=== PATIENT | female | born 1940 | race Caucasian/White ===

== ENCOUNTER 2022-07-05 09:58 | Outpatient (CLI) | payer MEDICARE, OTHER, SELFPAY ==
--- NOTE | 2022-07-05 10:56 | XRR_ITS ---
PROCEDURE INFORMATION: Exam: XR Chest Exam date and time: 07/05/2022 11:05 AM Age: 81 years old Clinical indication: Condition or disease; Lung condition and disease; Copd; Prior surgery; Surgery type: Gastric bypass; Additional info: J44.9 - chronic obstructive pulmonary disease, unspecified TECHNIQUE: Imaging protocol: Radiologic exam of the chest. Views: 2 views. COMPARISON: No relevant prior studies available. FINDINGS: Tubes, catheters and devices: Numerous surgical clips in the upper abdomen. Lungs: Right perihilar and infrahilar consolidation. Enlarged right hilum. Calcified right hilar lymph nodes. Scattered calcifications in the right lower lung. Pleural spaces: There is no pleural effusion or pneumothorax. Heart/Mediastinum: There is mild enlargement of the cardiac silhouette. Bones/joints: Bilateral shoulder arthroplasty. XR/XR chest 2V* [id number] IMPRESSION: Right lower lung opacities associated with pulmonary parenchymal calcifications and right hilar enlargement with lymph node calcifications. This may be an acute or chronic process. Consider infection, neoplasm, and sequelae of granulomatous disease. Recommend follow-up chest CT.
--- NOTE | 2022-07-05 10:56 | XRR_ITS ---
PROCEDURE INFORMATION: Exam: XR Left Elbow Exam date and time: 07/05/2022 11:05 AM Age: 81 years old Clinical indication: Injury or trauma; Fall; Blunt trauma (contusions or hematomas); Elbow; Left; Injury date: 1 week ago; Additional info: M25.522 - pain in left elbow TECHNIQUE: Imaging protocol: Radiologic exam of the left elbow. Views: 3 or more views. COMPARISON: No relevant prior studies available. FINDINGS: Bones/joints: Alignment is normal. No acute fracture. No joint effusion. Soft tissues: Normal. XR/XR elbow LT min 3V* [id number] IMPRESSION: No acute findings.
--- NOTE | 2022-07-05 10:56 | XRR_ITS ---
PROCEDURE INFORMATION: Exam: XR Left Ribs Exam date and time: 07/05/2022 11:05 AM Age: 81 years old Clinical indication: Pain and injury or trauma; Fall; Rib area, left side; Blunt trauma; Pleurodynia; Injury date: 1 week ago; Prior surgery; Surgery type: Gastric bypass; Additional info: R07.81 - pleurodynia TECHNIQUE: Imaging protocol: Radiologic exam of the left ribs. Views: 2 views. COMPARISON: No relevant prior studies available. FINDINGS: Bones/joints: Left shoulder arthroplasty with humeral head prosthesis. There is linear lucency adjacent to the prosthesis which may represent overlying soft tissues. Acute fracture is not unequivocally excluded. Soft tissues: Unremarkable XR/XR ribs LT 2V* [id number] IMPRESSION: Subtle lucency in the proximal humerus. Soft tissue fold versus nondisplaced fracture.
[2022-07-05 11:19] LABS: Basophils # 0.1 10^3/uL (0.0-0.1); Basophils % 0.8 %; Eosinophils # 0.8 10^3/uL (0.0-0.8); Eosinophils % 11.1 %; Hematocrit 31.1 % (37.0-47.0); Hemoglobin 9.4 g/dL (11.5-15.3); Lymphocytes # 0.7 10^3/uL (0.8-4.8); Lymphocytes % 8.7 %; Mean Corpuscular HGB Conc 30.2 g/dL (30.0-36.0); Mean Corpuscular Hemoglobin 34.9 pg (28.0-34.0); Mean Corpuscular Volume 115.6 fl (81-99); Mean Platelet Volume 10.7 fL (7.4-10.4); Monocytes # 0.7 10^3/uL (0.2-0.9); Monocytes % 9.4 %; Neutrophils # 5.29 10^3/uL (1.8-7.7); Neutrophils % 69.6 %; Nucleated Red Blood Cells % 0 %; Platelet Count 211 10^3/cmm (130-400); Red Blood Count 2.69 10^6/uL (4.1-5.3); Red Cell Distribution Width 14.9 % (12.1-15.1); White Blood Count 7.6 10^3/uL (4.0-10.0)
[2022-07-05 12:00] LABS: 25 Hydroxy Vitamin D 19 ng/mL (30-100); Alanine Aminotransferase < 5 U/L (0-33); Alkaline Phosphatase 53 U/L (35-105); Anion Gap 15.6 (5-19); Aspartate Amino Transferase 26 U/L (0-32); Blood Urea Nitrogen 44 mg/dL (8-23); Calcium 7.7 mg/dL (8.5-10.5); Carbon Dioxide 25 mmol/L (22-29); Chloride 105 mmol/L (98-107); Chol HDL Ratio 2.08 mg/dL (0.0-4.40); Cholesterol 83 mg/dL (0-200); Globulin 2.6 g/dL (1.3-4.6); Glucose 87 mg/dL (65-115); HDL Cholesterol 40 mg/dL (60-100); Iron 77 ug/dL (37-145); LDL Cholesterol Calculated 17 mg/dL (50-129); Osmolality Calculated 303 mOsm/kg (285-295); Potassium 4.6 mmol/L (3.5-5.1); Sodium 141 mmol/L (136-145); Thyroid Stimulating Hormone 1.54 uIU/mL (0.27-4.20); Total Bilirubin 0.6 mg/dL (0.15-1.2); Total Iron Binding Capacity 265 mcg/dl; Total Protein 5.6 g/dL (6.6-8.7); Triglycerides 130 mg/dL (0-150); Unsaturated Iron Binding 188 ug/dL (112-347); VLDL Cholestrol Calculation 26 mg/dL (0-30); Vitamin B12 278 pg/mL (232-1245)
== END 2022-07-05 09:59 | disposition home or self-care (01) ==
PROVIDERS: PCP Nurse Practitioner; Visit Provider Nurse Practitioner
DX: J44.9 Chronic obstructive pulmonary disease, unspecified (principal); M25.522 Pain in left elbow; R07.81 Pleurodynia; E55.9 Vitamin D deficiency, unspecified; I10 Essential (primary) hypertension; E78.2 Mixed hyperlipidemia; R00.0 Tachycardia, unspecified; E61.1 Iron deficiency
CPT/HCPCS: 36415; 71046; 71100; 73080; 80053; 80061; 82306; 82607; 83540; 83550; 84443; 85025

== ENCOUNTER 2022-07-20 15:10 | Outpatient (CLI) | payer MEDICARE, SELFPAY ==
--- NOTE | 2022-07-20 15:00 | CTR_ITS ---
PROCEDURE INFORMATION: Exam: CT Chest Without Contrast; Diagnostic Exam date and time: 07/20/2022 3:42 PM Age: 81 years old Clinical indication: Condition or disease; Lung condition and disease; Copd; Complications not specified; Additional info: J44.9 - chronic obstructive pulmonary disease, unspecified, please call [facility] for transportation [phone] TECHNIQUE: Imaging protocol: Diagnostic computed tomography of the chest without contrast. Radiation optimization: All CT scans at this facility use at least one of these dose optimization techniques: automated exposure control; mA and/or kV adjustment per patient size (includes targeted exams where dose is matched to clinical indication); or iterative reconstruction. REPORTING DATA: Count of CT and Cardiac NM exams in prior 12 months: This patient has received 0 known CTs and 0 known cardiac nuclear medicine studies in the 12 months prior to the current study. COMPARISON: CR XR chest 2V* [id number] 07/05/2022 11:05 AM RADIATION DOSE METRICS: Total DLP (mGy-cm): 402.1 FINDINGS: Thyroid: Generalized thyroid enlargement with multiple thyroid nodules measuring up to 2.5 cm. There is a partially calcified nodule measuring 2.5 cm interposed between the posterior margin left lobe of the thyroid gland and esophagus likely representing nodular goiter. Lungs: Scattered granulomatous calcifications within the mediastinum and hilum. Mild upper lobe emphysematous changes and minor atelectatic changes right lung base, otherwise lung freeman are aerated and clear. Pleural spaces: Unremarkable. No pneumothorax. No pleural effusion. Heart: Heart is at least mildly enlarged. Moderate calcification of coronary arteries. No significant pericardial effusion. Lymph nodes: No significant mediastinal lymphadenopathy. Vasculature: Diffuse atherosclerotic changes with calcification of the thoracic aorta. There is an mid abdominal aortic aneurysm with an endovascular stent partially visualized. Gallbladder and bile ducts: Gallbladder has been removed. Kidneys and ureters: Right kidney is atrophic. Intraperitoneal space: Numerous surgical clips within the upper abdomen the. Bones/joints: Multilevel degenerative endplate osteophytes throughout the thoracic spine. No acute bony abnormalities. Soft tissues: Unremarkable. CT/CT chest wo con [id number] IMPRESSION: 1. COPD with mild upper lobe emphysematous changes. 2. Cardiomegaly with moderate calcification of coronary arteries. 3. Multinodular goiter with nodules measuring up to 2.5 cm. COMMENTS: Consistent with the [employer]'s Incidental Findings Committee white paper (J Am Melina Radiol 2015): In patients aged 35 years and older with an incidental thyroid nodule equal to or greater than 1.[address], MRI or extrathyroidal US, further evaluation with dedicated thyroid US is recommended for patients with normal life expectancy and without comorbidities. For smaller nodules without suspicious features, no further evaluation or follow up is recommended.
== END 2022-07-20 15:11 | disposition home or self-care (01) ==
PROVIDERS: PCP Nurse Practitioner; Visit Provider Nurse Practitioner
DX: J44.9 Chronic obstructive pulmonary disease, unspecified (principal); N18.30 Chronic kidney disease, stage 3 unspecified; R93.89 Abnormal findings on diagnostic imaging of other specified body structures; I51.7 Cardiomegaly; E04.1 Nontoxic single thyroid nodule
CPT/HCPCS: 71250

== ENCOUNTER 2022-07-21 06:05 | Inpatient (IN) | payer MEDICARE, OTHER, SELFPAY ==
[2022-07-21] VITALS (47 sets, daily range): BP systolic 102–146; BP diastolic 27–88; PULSE 36–74; RESP 12–23; TEMP 36.4–37.1; O2SAT 80–100; BMI 31.3
--- NOTE | 2022-07-21 06:25 | XRR_ITS ---
PROCEDURE INFORMATION: Exam: XR Chest Exam date and time: 07/21/2022 6:30 AM Age: 81 years old Clinical indication: Dyspnea; Prior surgery; Surgery type: Gastric bypass; Additional info: Dyspnea/cough TECHNIQUE: Imaging protocol: Radiologic exam of the chest. Views: 1 view. COMPARISON: CT chest con [id number] 07/20/2022 3:42 PM FINDINGS: Lungs: There are multiple benign calcified right pulmonary hilar and mediastinal lymph nodes. Pleural spaces: Unremarkable. No pleural effusion. No pneumothorax. Heart/Mediastinum: Cardiac silhouette is enlarged but unchanged. Bones/joints: Unremarkable. Intraperitoneal space: Surgical clips are present in the abdomen. XR/XR chest 1V portable [id number] IMPRESSION: No acute abnormality.
--- NOTE | 2022-07-21 06:26 | ECG_ITS ---
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 Measurements Intervals [place] Rate: 40 P: 0 DE: 0 QRS: -41 QRSD: 169 T: 39 QT: 543 QTc: 446 Interpretive Statements ATRIAL FIBRILLATION WITH SLOW VENTRICULAR RESPONSE LEFT AXIS DEVIATION [QRS AXIS < -30] LEFT BUNDLE BRANCH BLOCK [120+ ms QRS DURATION, 80+ ms Q/S IN V1/V2, 85+ ms R IN I/aVL/V5/V6] CRITICAL TEST RESULT No previous ECG available for comparison Electronically Signed On 07-21-2022 9:55:56 CDT by Gerry Jones M.D. [email or web address]
--- NOTE | 2022-07-21 06:27 | ED_ITS ---
HPI - Weakness General: Chief complaint: Weakness Stated complaint: WEAKNESS Time Seen by Provider: 07/21/22 06:11 Source: patient Mode of arrival: ambulatory History of Present Illness: 81-year-old female who presents to the emergency room with generalized weakness. She lives in [place] [facility] [place] she usually uses a walker to walk but over the last month has been progressively weaker today she could not stand. She denies chest or abdominal pain. She has chronic diarrhea that is unchanged she denies any hematochezia or melena. She denies any shortness of breath. She has a known history of atrial fibrillation she also has a history of Parkinson's disease that she is not on any long-term anticoagulation but does take baby aspirin daily she is also on metoprolol on arrival here she is profoundly bradycardic but awake and alert and able to answer questions. Onset (ago): hour(s) Duration: constant Location: generalized Migration: none Severity: mild Relieving factors: none Exacerbating factors: none Associated symptoms: Denies chest pain, chills, confusion, melena, decreased appetite, diaphoresis, dysuria, easy bruising, fever(s), headache(s), myalgias, nausea, rash, short of breath, syncope or vomiting Review of Systems Const: Denies: fever(s), chills, fatigue, malaise or diaphoresis Card: Reports: palpitations, irregular heart rhythm, edema and swelling of feet/ankles; Denies: chest pain or syncope Resp: Denies: dyspnea, productive cough or non-productive cough GI: Reports: diarrhea (Chronic); Denies: abdominal pain, nausea, vomiting, hematochezia or melena : Denies: dysuria, urinary frequency or urinary urgency Skin/Breast: Denies: rash or pruritus Neuro: Denies: headache(s) or confusion Toñito/Lymph: Denies: easy bruising PFS ED PFSH: Medical History (Updated 07/21/22 @ 07:54 by Yo Farris DO) AAA (abdominal aortic aneurysm) Acid reflux Anxiety with depression CKD (chronic kidney disease) stage 3, GFR 30-59 ml/min COPD (chronic obstructive pulmonary disease) Environmental and seasonal allergies Essential hypertension Hx of coronary angiogram Hyperlipidemia, mixed Irritable bowel syndrome with diarrhea JESSICA on CPAP Parkinson disease PVD (peripheral vascular disease) Tachycardia Surgical History (Updated 07/21/22 @ 07:54 by Yo Farris DO) History of abdominal aortic aneurysm (AAA) repair Two different repairs in [place] History of arthroscopy of both shoulders History of bariatric surgery 3 different surgeries 2007 History of cholecystectomy History of colonoscopy with polypectomy Benign History of hysterectomy with bilateral oophorectomy History of renal stent History of tonsillectomy and adenoidectomy History of vein stripping Bilateral legs Personal history of benign breast biopsy Family History Father Cancer Social History Smoking and tobacco status: current every day smoker Lives independently: No Housing: Assisted Living Facility Marital status: Marital status details: Sanjuana Coelho Number of children: 3 Current occupational status: retired Current gender identity: Female Physical Exam Const: GENERAL APPEARANCE: cooperative and comfortable ORIENTATION/CONSCIOUSNESS: Yes awake, Yes oriented to person, Yes oriented to place and Yes oriented to time HENMT: COMMON NORMALS: normocephalic, atraumatic and hearing grossly normal bilaterally HEAD & SCALP: normocephalic and atraumatic Resp: COMMON NORMALS: normal respiratory effort, No retractions, No use of accessory muscles and clear to auscultation bilaterally AUSCULTATION: clear to auscultation bilaterally Cardio: COMMON NORMALS: No murmurs present (Cardio) RATE: bradycardic RHYTHM: abnormal rhythm irregularly irregular GI: COMMON NORMALS: Soft to palpation and No hepatosplenomegaly present AUSCULTATION: Yes normoactive bowel sounds PALPATION: Yes Soft to palpation, No Tenderness to palpation present (GI), No Guarding due to palpation present (GI) and Yes No hepatosplenomegaly present : COMMON NORMALS: Yes no CVA tenderness BLADDER/KIDNEY EXAM: Yes no CVA tenderness Back/Pelvis: COMMON NORMALS: no CVA tenderness Extremity: COMMON NORMALS: normal to inspection, capillary refill normal, no clubbing, cyanosis or edema, no calf tenderness and no pedal edema Neuro: SENSORIUM/ORIENTATION: Yes oriented to person, Yes oriented to place and Yes oriented to time Skin: COMMON NORMALS: no rashes or lesions noted GENERAL SKIN EXAM: no rashes or lesions noted Course Vital Signs: Vital signs: Vital Signs Temperature 97.6 F 07/21/22 06:27 Pulse Rate 41 L 07/21/22 06:27 Respiratory Rate 20 H 07/21/22 06:27 Blood Pressure 109/57 07/21/22 06:27 Oxygen Delivery Me thod Nasal Cannula 07/21/22 06:27 Oxygen Flow Rate 2 07/21/22 06:27 MDM - Weakness Medical Decision Making Acute on chronic kidney injury. Elevated troponin and significant bradycardia. Patient has a left bundle branch block and is in atrial fibrillation bradycardia may be due to high-dose of beta-chandu. Additionally patient is on significant diuretics with metaxalone and Lasix. Patient given 500 normal saline and started on normal saline at 50 mils per hour. Rate is continued in the upper 30s low 40s however blood pressure is stable. Patient is not showing any signs of compromise or hypoperfusion at this point she continues to have no chest pain. We do not have troponins to compare previously nor do we have an old EKG to compare. Discussed with hospitalist they asked that we consult cardiology. Dr. Jones was called for on-call cardiology. Will admit to the ICU hold diuretics and beta-blockers. She has been started on heparin for now based on the elevated troponin. The only previous creatinine was 3.4 today's is 4.7 with a BUN of 114, her previous BUN from July 05 was 44. Medical Records I reviewed the patient's medical records. Lab Data I reviewed the patient's lab results. 07/21/22 06:30 07/21/22 06:30 Radiology Impressions Chest X-Ray 07/21/22 06:25 IMPRESSION: No acute abnormality. Laboratory Results WBC 7.7 10^3/uL (4.0-10.0) 07/21/22 06:30 RBC 3.06 10^6/uL (4.1-5.3) L 07/21/22 06:30 Hgb 10.2 g/dL (11.5-15.3) L 07/21/22 06:30 Hct 31.8 % (37.0-47.0) L 07/21/22 06:30 MCV 103.9 fl (81-99) H 07/21/22 06:30 MCH 33.3 pg (28.0-34.0) 07/21/22 06:30 MCHC 32.1 g/dL (30.0-36.0) 07/21/22 06:30 RDW 14.1 % (12.1-15.1) 07/21/22 06:30 Plt Count 102 10^3/cmm (130-400) L 07/21/22 06:30 MPV 13.7 fL (7.4-10.4) H 07/21/22 06:30 Neut % (Auto) 73.8 % 07/21/22 06:30 Lymph % (Auto) 12.0 % 07/21/22 06:30 [place] % (Auto) 11.2 % 07/21/22 06:30 Eos % (Auto) 2.2 % 07/21/22 06:30 Baso % (Auto) 0.7 % 07/21/22 06:30 Neut # (Auto) 5.67 10^3/uL (1.8-7.7) 07/21/22 06:30 Lymph # (Auto) 0.9 10^3/uL (0.8-4.8) 07/21/22 06:30 [place] # (Auto) 0.9 10^3/uL (0.2-0.9) 07/21/22 06:30 Eos # (Auto) 0.2 10^3/uL (0.0-0.8) 07/21/22 06:30 Baso # (Auto) 0.1 10^3/uL (0.0-0.1) 07/21/22 06:30 Nucleated RBC % (auto) 0 % 07/21/22 06:30 Nucleated RBCs # 0.0 /100WBC 07/21/22 06:30 Sodium 137 mmol/L (136-145) 07/21/22 06:30 Potassium 4.7 mmol/L (3.5-5.1) 07/21/22 06:30 Chloride 97 mmol/L (98-107) L 07/21/22 06:30 Carbon Dioxide 25 mmol/L (22-29) 07/21/22 06:30 Anion Gap 19.7 (5-19) H 07/21/22 06:30 BUN 114 mg/dL (8-23) H* D 07/21/22 06:30 Creatinine 4.7 mg/dL (0.5-0.9) H 07/21/22 06:30 GFR Calculation Not Reportable 07/21/22 06:30 Glucose 61 mg/dL (65-115) L 07/21/22 06:30 Calculated Osmolality 318 mOsm/kg (285-295) H 07/21/22 06:30 Calcium 7.7 mg/dL (8.5-10.5) L 07/21/22 06:30 Magnesium 1.7 mg/dL (1.7-2.3) 07/21/22 06:30 Total Bilirubin 1.8 mg/dL (0.15-1.2) H 07/21/22 06:30 AST 193 U/L (0-32) H 07/21/22 06:30 ALT 8 U/L (0-33) 07/21/22 06:30 Alkaline Phosphatase 85 U/L (35-105) 07/21/22 06:30 Troponin T Baseline 178 ng/L (0-10) H* 07/21/22 06:30 NT-Pro-B Natriuret Pep 4793 pg/mL (0-450) H 07/21/22 06:30 Total Protein 5.2 g/dL (6.6-8.7) L 07/21/22 06:30 Albumin 3.0 g/dL (3.5-5.2) L 07/21/22 06:30 Globulin 2.2 g/dL (1.3-4.6) 07/21/22 06:30 TSH 1.85 uIU/mL (0.27-4.20) 07/21/22 06:30 Discharge Plan Discharge Patient Disposition: Admitted As Inpatient Admit Provider: Melva Gracia Clinical Impression: Bradycardia, COPD (chronic obstructive pulmonary disease), History of renal stent, Essential hypertension, Parkinson disease, Atrial fibrillation, Acute on chronic kidney failure Condition: Stable Coding Level of Care Code ED Poultry Offal Icer for Jeannag Fwleón
[2022-07-21 06:45] LABS: Basophils # 0.1 10^3/uL (0.0-0.1); Basophils % 0.7 %; Eosinophils # 0.2 10^3/uL (0.0-0.8); Eosinophils % 2.2 %; Hematocrit 31.8 % (37.0-47.0); Hemoglobin 10.2 g/dL (11.5-15.3); Lymphocytes # 0.9 10^3/uL (0.8-4.8); Mean Corpuscular HGB Conc 32.1 g/dL (30.0-36.0); Mean Corpuscular Hemoglobin 33.3 pg (28.0-34.0); Mean Corpuscular Volume 103.9 fl (81-99); Mean Platelet Volume 13.7 fL (7.4-10.4); Monocytes # 0.9 10^3/uL (0.2-0.9); Monocytes % 11.2 %; Neutrophils # 5.67 10^3/uL (1.8-7.7); Neutrophils % 73.8 %; Nucleated Red Blood Cells % 0 %; Platelet Count 102 10^3/cmm (130-400); Positive M 1; Red Blood Count 3.06 10^6/uL (4.1-5.3); Red Cell Distribution Width 14.1 % (12.1-15.1); White Blood Count 7.7 10^3/uL (4.0-10.0)
[2022-07-21] MEDS: sodium chloride 0.9% 500 ML 999 ML IV (06:46)
[2022-07-21 07:13] LABS: Troponin(5th) Baseline 178 ng/L (0-10)
[2022-07-21 07:16] LABS: Alanine Aminotransferase 8 U/L (0-33); Alkaline Phosphatase 85 U/L (35-105); Aspartate Amino Transferase 193 U/L (0-32); Calcium 7.7 mg/dL (8.5-10.5); Carbon Dioxide 25 mmol/L (22-29); Chloride 97 mmol/L (98-107); Globulin 2.2 g/dL (1.3-4.6); Glucose 61 mg/dL (65-115); Magnesium 1.7 mg/dL (1.7-2.3); NT Pro B Type Natriuretic Pept 4793 pg/mL (0-450); Sodium 137 mmol/L (136-145); Thyroid Stimulating Hormone 1.85 uIU/mL (0.27-4.20); Total Bilirubin 1.8 mg/dL (0.15-1.2); Total Protein 5.2 g/dL (6.6-8.7)
[2022-07-21 07:22] LABS: Anion Gap 19.7 (5-19); Osmolality Calculated 318 mOsm/kg (285-295); Potassium 4.7 mmol/L (3.5-5.1)
[2022-07-21 07:23] LABS: Blood Urea Nitrogen 114 mg/dL (8-23)
[2022-07-21] MEDS: heparin 5,000 unit/mL INJ 1 mL IV (08:17)
[2022-07-21 08:27] LABS: INR 1.67 (0.8-1.2)
[2022-07-21] MEDS: heparin drip 25,000 UNIT/500 ML PREMIX 26.93 UNIT IV (08:32)
--- NOTE | 2022-07-21 08:38 | ECG_ITS ---
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 Measurements Intervals [place] Rate: 42 P: 0 OK: 0 QRS: -26 QRSD: 166 T: 58 QT: 546 QTc: 456 Interpretive Statements ATRIAL FIBRILLATION WITH SLOW VENTRICULAR RESPONSE LEFT BUNDLE BRANCH BLOCK [120+ ms QRS DURATION, 80+ ms Q/S IN V1/V2, 85+ ms R IN I/aVL/V5/V6] Compared to ECG 07/21/2022 06:20:52 Left-axis deviation no longer present Electronically Signed On 07-21-2022 9:59:12 CDT by Gerry Jones M.D. [id number]
[2022-07-21 09:09] LABS: Add Urine Microscopic? YES; Bilirubin Urine Neg (Negative); Blood Urine 3+ (Negative); Glucose Urine UA Norm (Normal); Ketones Urine Negative (Negative); Leukocyte Esterase Urine Negative (Negative); Nitrate Urine Negative (Negative); Protein Urine Neg (Negative); Specific Gravity, Urine 1.015 (1.005-1.030); Urine Appearance Clear (CLEAR); Urine Color Yellow (Yellow); Urobilinogen Urine Norm (Negative); pH Urine 5 (5-7)
[2022-07-21 09:15] LABS: Bacteria Urine TRACE /hpf; RBC Urine 0-4 /hpf (0-2); WBC Urine RARE /hpf (0-5)
[2022-07-21 09:16] LABS: Add Urine Culture? No
[2022-07-21 09:27] LABS: Troponin 5 2HR Delta -15.7 ABS# (0-10)
[2022-07-21 09:29] LABS: Troponin 5 2HR 162.3 ng/L (0-10)
[2022-07-21] MEDS: sodium chloride 0.9% 1,000 ML 50 ML IV (10:11)
--- NOTE | 2022-07-21 10:38 | P.CONIM_ITS ---
Providers/Reason For Consult Consulting Physician/Specialty*: Cardiovascular medicine Reason for Consult*: Bradycardia, elevated troponin Requesting Physician: Hospitalist/emergency room Attending Physician: Melva Gracia MD Primary Care Provider: IRMA Cabral History of Present Illness History of Present Illness Meghana Wong is a 81 year old female who is chronically unwell. She has a long list of medical problems. She has been living in a snf lately and according to her [id number], prior to going in the snf she was not taking her medications regularly. Since then the medicines have been given according to instructions and the [id number] is concerned that perhaps she is getting too much. Over the last several days she has been weak and unable to bear her weight. She fell 2 days ago and sustained a significant bruise on the right side of her face and her mandible. She states she did not injure anything else. She said that she fell when she tried to stand and use her walker and her legs simply would not bear her weight. She has a long list of medical problems. She apparently moved to this area from [place] and much of her health care was established there. She has had an abdominal aortic aneurysm repair, has chronic stage III kidney disease, COPD, tobacco abuse, hypertension, dyslipidemia, irritable bowel syndrome with chronic diarrhea, sleep apnea, Parkinson's syndrome, peripheral arterial disease undefined, renal artery stenosis with prior stent, atrial fibrillation, obesity with history of bariatric surgery, varicose veins and a macrocytic anemia. Upon her arrival at the emergency room her INR was 1.67, hemoglobin 10, BUN 114 creatinine 4.7. Her creatinine on July 05 was 3.3. Her AST is 193. On it was 26. Her bilirubin is 1.8. Her troponins are 178 and 162 with the third 1 pending[place] [address] of the chest shows COPD, goiter and cardiomegaly. Chest x-ray shows scattered lymph nodes. The electrocardiogram initially showed atrial fibrillation at a rate of about 40 with an underlying left bundle branch block. I do not know if the left bundle branch block is new. When I visited with her in the ICU she was having some sinus beats. She is on 125 mg of long-acting metoprolol daily. She is awake and alert but weak. She does not have any pain. She has not had any chest pain. She seems to be breathing adequately. Review of Systems Narrative: Her review of systems is diffusely positive. Medications/Allergies Home Medications Medication Instructions Recorded Confirmed Last Taken Type CPAP supplies #1 ea 07/04/22 07/04/22 Unknown Rx Wheelchair to fit #1 ea 07/04/22 07/04/22 Unknown Rx acetaminophen 650 mg 650 mg PO .Q6HR 07/04/22 07/04/22 Unknown History tablet,extended release albuterol 90 mcg/actuation aerosol mcg inhalation .Q6hr 07/04/22 07/04/22 Unknown History inhaler albuterol sulfate 2.5 mg/3 mL 2.5 mg (3 mL) inhalation TID PRN 07/04/22 07/04/22 Unknown Rx (0.083 %) solution for nebulization shortness of breath or wheezing #180 mL aripiprazole 15 mg tablet 15 mg PO DAILY #30 tabs 07/04/22 07/04/22 Unknown Rx aspirin 81 mg tablet,delayed 81 mg PO DAILY #1 tab 07/04/22 07/04/22 Unknown Rx release (Adult Low Dose Aspirin) atorvastatin 40 mg tablet 40 mg PO DAILY #30 tabs 07/04/22 07/04/22 Unknown Rx carbidopa 25 mg-levodopa 250 mg 1 tab PO QID #120 tabs 07/04/22 07/04/22 Unknown Rx tablet desvenlafaxine succinate 25 mg 25 mg PO DAILY #30 tabs 07/04/22 07/04/22 Unknown Rx tablet,extended release 24 hr dextromethorphan-guaifenesin 30 1 tab PO Q12H #60 tabs 07/04/22 07/04/22 Unknown Rx mg-600 mg tablet extended fiocsxy01 hr (Mucinex DM) fenofibrate 160 mg tablet 160 mg PO DAILY #30 tabs 07/04/22 07/04/22 Unknown Rx fluticasone fur. 100 mcg-umeclid 1 inh inhalation Q24H #60 ea 07/04/22 07/04/22 Unknown Rx 62.5 mcg-vilant 25 mcg inhalat.powder (Trelegy Ellipta) furosemide 40 mg tablet 80 mg PO DAILY #60 tabs 07/04/22 07/04/22 Unknown Rx lansoprazole 30 mg capsule,delayed 30 mg PO DAILY #30 caps 07/04/22 07/04/22 Unknown Rx release losartan 50 mg tablet 50 mg PO DAILY #30 tabs 07/04/22 07/04/22 Unknown Rx metolazone 5 mg tablet 5 mg PO .MON.Sat07/04/22 07/04/22 Unknown History metoprolol succinate 100 mg 100 mg PO .HS #30 tabs 07/04/22 07/04/22 Unknown Rx tablet,extended release 24 hr metoprolol succinate 25 mg 25 mg PO .HS #30 tabs 07/04/22 07/04/22 Unknown Rx tablet,extended release 24 hr nebulizers #1 ea 07/04/22 07/04/22 Unknown Rx oxycodone-acetaminophen 5 mg-325 1 tab PO Q8H PRN 07/04/22 07/04/22 Unknown History mg tablet diphenoxylate-atropine 2.5 1 tab PO TID #90 tabs 07/05/22 07/05/22 Unknown Rx mg-0.025 mg tablet (Lomotil) silver sulfadiazine 1 % topical 1 applic topical DAILY #400 grams 07/05/22 07/05/22 Unknown Rx cream (Silvadene) cholecalciferol (vitamin D3) 125 125 mcg PO DAILY #30 caps 07/06/22 Unknown Rx mcg (5,000 unit) capsule doxycycline hyclate 100 mg capsule 100 mg PO BID #20 caps 07/06/22 Unknown Rx (Vibramycin) Allergies Allergy/AdvReac Type Severity Reaction Status Date / Time codeine Allergy Unknown Verified 07/04/22 14:56 Current Medications Generic Name Dose Route Start Last Admin Trade Name Freq PRN Reason Stop Dose Admin Heparin Sodium (Porcine) 0 unit 07/21/22 07:18 07/21/22 08:17 Heparin 5,000 Unit/Ml Inj 1 Ml IV 4,800 unit PRN PRN Administration Heparin weight-base protocol Protocol Heparin Sodium/Sodium Chloride 25,000 unit in 500 mls @ 0 mls/hr 07/21/22 07:30 07/21/22 08:32 Heparin Drip IV 14 unit/kg/hr .Q0M JOSE 26.93 mls/hr Administration Protocol Per Protocol Sodium Chloride 1,000 mls @ 50 mls/hr 07/21/22 09:41 07/21/22 10:11 Sodium Chloride 0.9% IV 50 mls/hr .Q20H JOSE Administration PFSH Acute PFSH: Medical History (Updated 07/21/22 @ 10:47 by Gerry Jones MD) AAA (abdominal aortic aneurysm) Acid reflux Anxiety with depression CKD (chronic kidney disease) stage 3, GFR 30-59 ml/min COPD (chronic obstructive pulmonary disease) Environmental and seasonal allergies Essential hypertension Hx of coronary angiogram Hyperlipidemia, mixed Irritable bowel syndrome with diarrhea Left bundle branch block Macrocytic anemia JESSICA on CPAP Parkinson disease PVD (peripheral vascular disease) Tachycardia Transaminitis Surgical History (Updated 07/21/22 @ 10:47 by Gerry Jones MD) History of abdominal aortic aneurysm (AAA) repair Two different repairs in [place] History of arthroscopy of both shoulders History of bariatric surgery 3 different surgeries 2007 History of cholecystectomy History of colonoscopy with polypectomy Benign History of hysterectomy with bilateral oophorectomy History of renal stent History of tonsillectomy and adenoidectomy History of vein stripping Bilateral legs Personal history of benign breast biopsy Family History Father Cancer Social History Smoking and tobacco status: current every day smoker Lives independently: No Housing: Assisted Living Facility Marital status: Marital status details: Meliton Sanjunaa Number of children: 3 Current occupational status: retired Current gender identity: Female Vitals/I&O/Wt Last Vital Signs Temp 97.6 F 07/21/22 06:27 Pulse 39 L 07/21/22 09:30 Resp 21 H 07/21/22 09:30 BP 128/56 07/21/22 09:30 Pulse Ox 99 07/21/22 09:30 O2 Del Method Nasal Cannula 07/21/22 09:43 O2 Flow Rate 1 07/21/22 09:27 07/20/22 07/21/22 07/21/22 22:59 06:59 14:59 Intake Total 500 / 500 Balance 500 / 500 Weight last 48 hrs Weight 212 lb Physical Exam Narrative: GENERAL: In general she is lying in bed in the ICU in no distress HEENT: Exam within normal limits. There is a bruise on the right cheek area in the right mandible. NECK: Supple without jugular vein distention. The carotid upstroke is normal without bruits. BACK: Exam normal. LUNGS: Clear. HEART: Irregular rate and rhythm ABDOMEN: Benign without organomegaly or tenderness. EXTREMITIES: No edema. NEUROLOGIC: Exam not done SKIN: Unremarkable. Urinary Catheter Management: Hernandez: Cath Placed During This Visit: yes Urinary Catheter Date of Insertion: 07/21/22 Urinary Catheter Time of Insertion: 08:49 Data 07/21/22 06:30 07/21/22 06:30 A&P Assessment and plan (1) Bradycardia: (2) Atrial fibrillation: (3) Acute on chronic kidney failure: (4) History of renal stent: (5) AAA (abdominal aortic aneurysm): (6) JESSICA on CPAP: (7) CKD (chronic kidney disease) stage 3, GFR 30-59 ml/min: (8) PVD (peripheral vascular disease): (9) Irritable bowel syndrome with diarrhea: (10) Parkinson disease: (11) Anxiety with depression: (12) Essential hypertension: (13) Hyperlipidemia, mixed: (14) COPD (chronic obstructive pulmonary disease): (15) Left bundle branch block: (16) Transaminitis: (17) Macrocytic anemia: (18) History of bariatric surgery: (19) History of abdominal aortic aneurysm (AAA) repair: Plan The bradycardia is due to the beta-chandu. That has been held. The troponin is likely due to the underlying medical problems especially the increase in the creatinine. She is not a candidate for cardiac catheterization at this point. She would most certainly have contrast-induced nephropathy and require dialysis. We should simply treat her medically for now. Further cardiac testing may be necessary in the future but at this point I do not believe so. I explained this to the patient and her [id number] in detail. Consult Attestations Medical Necessity Statement: Hospitalization for multiple medical problems and High Time for a total of 45 minutes, includes reviewing past or interval history, examining/interviewing patient, counseling patient/family/other support, updating patient/family/other support, discussing plan of care with staff, communicating with other healthcare providers and documenting encounter Diagnoses Bradycardia R00.1 Atrial fibrillation I48.91 Acute on chronic kidney failure N17.9; N18.9 History of renal stent AAA (abdominal aortic aneurysm) I71.40 JESSICA on CPAP G47.33; Z99.89 CKD (chronic kidney disease) stage 3, GFR 30-59 ml/min N18.30 PVD (peripheral vascular disease) I73.9 Irritable bowel syndrome with diarrhea K58.0 Parkinson disease G20 Anxiety with depression F41.8 Essential hypertension I10 Hyperlipidemia, mixed E78.2 COPD (chronic obstructive pulmonary disease) J44.9 Left bundle branch block I44.7 Transaminitis R74.01 Macrocytic anemia D53.9 History of bariatric surgery Z98.84 History of abdominal aortic aneurysm (AAA) repair Z98.890
--- NOTE | 2022-07-21 12:26 | ECG_ITS ---
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 Measurements Intervals Spur Rate: 42 P: 0 WA: 0 QRS: -44 QRSD: 170 T: 55 QT: 556 QTc: 466 Interpretive Statements Sinus bradycardia with premature atrial contraction LEFT AXIS DEVIATION [QRS AXIS < -30] LEFT BUNDLE BRANCH BLOCK [120+ ms QRS DURATION, 80+ ms Q/S IN V1/V2, 85+ ms R IN I/aVL/V5/V6] PROLONGED QT INTERVAL CRITICAL TEST RESULT Compared to ECG 07/21/2022 08:38:27 Left-axis deviation now present Prolonged QT interval now present Electronically Signed On 07-22-2022 10:28:17 CDT by Gerry Jones M.D. [email or web address]
--- NOTE | 2022-07-21 13:07 | USCV_ITS ---
Meghana Wong Age: 81 Gender: F : 1940 Exam Date: 07/21/2022 15:14 Ordering Phys: Melva Gracia MD Technologist: ERICA Exam Location: [facility] Indication: nstemi BP: / HR: 39 Rhythm: Sinus Technical Quality: Suboptimal MEASUREMENTS (Male / Female) Normal Values 2D ECHO LV Diastolic Diameter PLAX 6.4 cm 4.2 - 5.9 / 3.9 - 5.3 cm LV Systolic Diameter PLAX 4.4 cm IVS Diastolic Thickness 0.8 cm 0.6 - 1.0 / 0.6 - 0.9 cm IVS Systolic Thickness 1.4 cm LVPW Diastolic Thickness 0.8 cm 0.6 - 1.0 / 0.6 - 0.9 cm LVPW Systolic Thickness 1.2 cm LVOT Diameter 2.4 cm LV Ejection Fraction 2D Teich 58.2 % LV Ejection Fraction MOD 2C 68.7 % LV Ejection Fraction 2C AL 69.6 % LA Diameter 3.6 cm IVC Diameter 2.0 cm M-MODE Aortic Annulus Diameter 3.0 cm LA Ao Ratio MM 1.3 MV E Point Septal Separation 0.6 cm DOPPLER AV Peak Velocity 281.0 cm/s LVOT Peak Velocity 77.0 cm/s AV Area Cont Eq vti 1.1 cm squared AV Area Cont Eq pk 1.2 cm squared MV Area PHT 6.5 cm squared Mitral E to A Ratio 2.0 MV E' Velocity 43.5 cm/s Mitral E to MV E' Ratio 13.9 Mitral E to LV E' Lateral Ratio 13.3 Mitral E to LV E' Septal Ratio 15.0 TR Peak Velocity 249.3 cm/s TR Peak Gradient 24.9 mmHg Right Atrial Pressure 6.0 mmHg Pulmonary Artery Systolic Pressu 30.9 mmHg PV Peak Velocity 166.0 cm/s FINDINGS Left Ventricle Normal left ventricular size, systolic function and wall thickness, with no regional wall motion abnormalities. Left ventricular ejection fraction is estimated at 55 %. Grade I/IV diastolic dysfunction (abnormal relaxation filling pattern), normal to mildly elevated filling pressures. Right Ventricle Normal right ventricular size and systolic function. Normal right ventricular systolic pressure. Right Atrium The right atrium is normal in size. Left Atrium The left atrium is normal in size. Mitral Valve Structurally normal mitral valve. Trace mitral valve regurgitation. Aortic Valve Structurally normal trileaflet aortic valve. Mild aortic valve calcification. Moderate aortic valve stenosis, mean gradient 13.5 mmHg, TAURUS 1.1 cm squared. No aortic valve regurgitation. Tricuspid Valve Structurally normal tricuspid valve. Mild tricuspid valve regurgitation. Pulmonic Valve Pulmonic valve not well visualized. Mild pulmonary valve regurgitation. Pericardium Normal pericardium without effusion. Aorta Normal ascending aorta dimension. IVC Inferior vena cava not visualized. CONCLUSIONS Normal left ventricular size, systolic function and wall thickness, with no regional wall motion abnormalities. Left ventricular ejection fraction is estimated at 55 %. Grade I/IV diastolic dysfunction (abnormal relaxation filling pattern), normal to mildly elevated filling pressures. Structurally normal mitral valve. Trace mitral valve regurgitation. Structurally normal trileaflet aortic valve. Mild aortic valve calcification. Moderate aortic valve stenosis, mean gradient 13.5 mmHg, TAURUS 1.1 cm squared. No aortic valve regurgitation. There are no prior echocardiogram studies to compare. Dr. Gerry Jones MD (Electronically Signed) Final Date: 22 Jul 2022 10:06 S
--- NOTE | 2022-07-21 13:12 | P.HP_ITS ---
Providers/Chief Complaint Admitting Physician: Melva Gracia MD Primary Care Provider: Brianna Cotton, THOMAS-C Chief Complaint: WEAKNESS History of Present Illness Meghana Wong is a 81 year old female with a past medical history of abdominal aortic aneurysm, CKD, baseline creatinine around 3.5, last had vascular intervention for her AAA in January 2022 in [place], COPD, chronic venous insufficiency. Hypertension, hyperlipidemia and IBS. She presents to the emergency room today from assisted living facilily with chief complaints of increasing weakness over the past 3 to 4 days. Patient has recently moved to this area from [place]. Per family's description it appears she had AAA repair and renal artery stenting in January, further vascular surgeries were planned, however these have been on hold because of patient's worsening CKD and inability to give any contrast. She has had significant deconditioning since her surgeries in January, moved into assisted living to be closer to her family, was working with therapy and improving until about 3 to 4 days ago when she started to feel unwell. She has sustained a few falls, about 1 month ago she fell out of her wheelchair. 2 days ago she fell again and had some bruising over her face. She feels as if her legs are giving way from under her. She has had multiple episodes of diarrhea, not controlled with Imodium at home. Upon arrival at the emergency room she was found to be bradycardic with heart rate in the 40s. Rhythm appears to be A-fib with an underlying left bundle branch block. She had elevated troponin at 178, downtrending at 2 hours at 168. She denies any current chest pain dyspnea or palpitations. CT of the chest performed on July 20, 2022 did not show any gross consolidation. Patient is on metoprolol at home which has now been discontinued. Review of Systems General: Reports: 10 or more systems reviewed and unremarkable except in HPI and below Const: Denies: fever(s), chills or body aches Eyes: Denies: change in vision, blurry vision or photophobia ENMT: Reports: hoarseness; Denies: throat pain, enlarged tonsils, odynophagia or nasal congestion Card: Denies: chest pain, palpitations, irregular heart rhythm, edema, swelling of feet/ankles, lightheadedness, pre-syncope, dyspnea on exertion or orthopnea Resp: Denies: dyspnea, productive cough, non-productive cough, wheezing, stridor, pain on inspiration, change in phlegm color, hemoptysis or chest congestion GI: Denies: abdominal pain, nausea, vomiting, hematemesis, coffee ground emesis, dysphagia, heartburn, diarrhea, constipation, GI cramping, change in stool character, hematochezia or melena : Denies: flank pain, difficulty voiding, dysuria, urinary frequency, urinary urgency, urinary hesitancy or hematuria Musc: Denies: neck pain, back pain, extremity pain, joint swelling, joint warmth or deformity Neuro: Denies: headache(s), numbness in extremities, weakness in extremities, sensory changes, difficulty walking, frequent falls, dizziness, vertigo, behavioral changes, Slurred speech present or seizure-like activity Psych: Denies: anxiety, depression, suicidal ideation or homicidal ideation Endo: Denies: polyuria, polydipsia, tired all the time, cold intolerance or hot flashes Toñito/Lymph: Denies: easy bruising or easy bleeding Medications/Allergies Home Medications Medication Instructions Recorded Confirmed Last Taken Type CPAP supplies #1 ea 07/04/22 07/21/22 Unknown Rx Wheelchair to fit #1 ea 07/04/22 07/21/22 Unknown Rx acetaminophen 650 mg 650 mg PO Q6H PRN Pain 07/04/22 07/21/22 Unknown History tablet,extended release albuterol 90 mcg/actuation aerosol 90 mcg inhalation Q6H PRN 07/04/22 07/21/22 Unknown History inhaler Shortness Of Breath albuterol sulfate 2.5 mg/3 mL 2.5 mg (3 mL) inhalation TID PRN 07/04/22 07/21/22 Unknown Rx (0.083 %) solution for nebulization shortness of breath or wheezing #180 mL aripiprazole 15 mg tablet 15 mg PO DAILY #30 tabs 07/04/22 07/21/22 07/20/22 Rx aspirin 81 mg tablet,delayed 81 mg PO DAILY #1 tab 07/04/22 07/21/22 07/20/22 Rx release (Adult Low Dose Aspirin) atorvastatin 40 mg tablet 40 mg PO DAILY #30 tabs 07/04/22 07/21/22 07/20/22 Rx carbidopa 25 mg-levodopa 250 mg 1 tab PO QID #120 tabs 07/04/22 07/21/22 07/20/22 Rx tablet desvenlafaxine succinate 25 mg 25 mg PO DAILY #30 tabs 07/04/22 07/21/22 07/20/22 Rx tablet,extended release 24 hr dextromethorphan-guaifenesin 30 1 tab PO Q12H #60 tabs 07/04/22 07/21/22 07/20/22 Rx mg-600 mg tablet extended [id number] hr (Mucinex DM) fenofibrate 160 mg tablet 160 mg PO DAILY #30 tabs 07/04/22 07/21/22 07/20/22 Rx fluticasone fur. 100 mcg-umeclid 1 inh inhalation Q24H #60 ea 07/04/22 07/21/22 Unknown Rx 62.5 mcg-vilant 25 mcg inhalat.powder (Trelegy Ellipta) furosemide 40 mg tablet 80 mg PO DAILY #60 tabs 07/04/22 07/21/22 07/20/22 Rx lansoprazole 30 mg capsule,delayed 30 mg PO DAILY #30 caps 07/04/22 07/21/22 07/20/22 Rx release losartan 50 mg tablet 50 mg PO DAILY #30 tabs 07/04/22 07/21/22 07/20/22 Rx metolazone 5 mg tablet See Rx Instructions .Route .COMPLEX 07/04/22 07/21/22 07/20/22 History nebulizers #1 ea 07/04/22 07/21/22 Unknown Rx oxycodone-acetaminophen 5 mg-325 1 tab PO Q8H PRN Pain 07/04/22 07/21/22 Unknown History mg tablet diphenoxylate-atropine 2.5 1 tab PO TID #90 tabs 07/05/22 07/21/22 07/20/22 Rx mg-0.025 mg tablet (Lomotil) silver sulfadiazine 1 % topical 1 applic topical DAILY #400 grams 07/05/22 07/21/22 07/20/22 Rx cream (Silvadene) cholecalciferol (vitamin D3) 125 125 mcg PO DAILY #30 caps 07/06/22 07/21/22 07/20/22 Rx mcg (5,000 unit) capsule doxycycline hyclate 100 mg capsule 100 mg PO BID #20 caps 07/06/22 07/21/22 07/20/22 Rx (Vibramycin) metoprolol succinate 100 mg 100 mg PO BEDTIME 07/21/22 07/21/22 07/20/22 History tablet,extended release 24 hr metoprolol succinate 25 mg 25 mg PO BEDTIME 07/21/22 07/21/22 07/20/22 History tablet,extended release 24 hr potassium chloride 20 mEq 20 meq PO DAILY 07/21/22 07/21/22 07/20/22 History tablet,extended release Allergies Allergy/AdvReac Type Severity Reaction Status Date / Time codeine Allergy Unknown Verified 07/04/22 14:56 PFSH Acute PFSH: Medical History AAA (abdominal aortic aneurysm) Acid reflux Anxiety with depression CKD (chronic kidney disease) stage 3, GFR 30-59 ml/min COPD (chronic obstructive pulmonary disease) Environmental and seasonal allergies Essential hypertension Hx of coronary angiogram Hyperlipidemia, mixed Irritable bowel syndrome with diarrhea Left bundle branch block Macrocytic anemia JESSICA on CPAP Parkinson disease PVD (peripheral vascular disease) Tachycardia Transaminitis Surgical History History of abdominal aortic aneurysm (AAA) repair Two different repairs in [place] History of arthroscopy of both shoulders History of bariatric surgery 3 different surgeries 2007 History of cholecystectomy History of colonoscopy with polypectomy Benign History of hysterectomy with bilateral oophorectomy History of renal stent History of tonsillectomy and adenoidectomy History of vein stripping Bilateral legs Personal history of benign breast biopsy Family History Father Cancer Social History Smoking and tobacco status: current every day smoker Lives independently: No Housing: Assisted Living Facility Marital status: Marital status details: Sanjuana Coelho Number of children: 3 Current occupational status: retired Current gender identity: Female Vitals/I&O/Wt Last Vital Signs Temp 97.6 F 07/21/22 06:27 Pulse 39 L 07/21/22 09:30 Resp 21 H 07/21/22 09:30 BP 128/56 07/21/22 09:30 Pulse Ox 99 07/21/22 09:30 O2 Del Method Nasal Cannula 07/21/22 09:43 O2 Flow Rate 1 07/21/22 09:27 07/20/22 07/21/22 07/21/22 22:59 06:59 14:59 Intake Total 500 / 500 Balance 500 / 500 Weight last 48 hrs Weight 96.162 kg Physical Exam Narrative: General: No acute distress, AO x3, appears chronically ill, pale HEENT: PERRLA, pupils bilaterally equal and reactive, pallors not present Chest: Normal vesicular breath sounds, no added sounds, equal good air entry bilaterally CVS: S1-S2 regular, no murmurs, no tachycardia, no gallops, no rubs Abdomen: Soft, nontender, no organomegaly, bowel sounds present Neuro: No focal deficits, moves all extremitis in bed though weak to lift legs off the bed. no facial deformity, AO x3 Urinary Catheter Management: Hernandez: Cath Placed During This Visit: yes Urinary Catheter Date of Insertion: 07/21/22 Urinary Catheter Time of Insertion: 08:49 Data 07/22/22 02:30 07/22/22 02:30 Other data: CT/CT chest wo con [id number] IMPRESSION: 1. ? COPD with mild upper lobe emphysematous changes. 2. ? Cardiomegaly with moderate calcification of coronary arteries. 3. ? Multinodular goiter with nodules measuring up to 2.5 cm. A&P Assessment and plan (1) Bradycardia: Patient noted to have bradycardia, baseline rhythm appears to be slow A-fib, heart rate ranging between 30 to 40 bpm. Blood pressure is currently maintained between 1 30-1 40 systolic. Holding metoprolol, patient takes 125 mics as outpatient. Continue telemetry monitoring (2) NSTEMI (non-ST elevated myocardial infarction): Baseline troponin elevated at 172, trending down at 2 hours to 168 Denies any current chest pain Cardiology consult Started on heparin drip (3) Acute on chronic kidney failure: Per family baseline creatinine appears to be about 3.5. Last creatinine in our system from July 05, 2022 at 3.3 Creatinine today at 4.7 May be related to hypoperfusion from bradycardia, though does not have had any drops in blood pressure here. She is clinically dehydrated Started on normal saline hydration, slowly at 50 cc an hour, monitor urine output. Renal artery Doppler to assess patency of stent Discussed with family that ideally would prefer to do a CTA, however due to concern for potential RUSSELL and need to be started on hemodialysis holding off for now while pending serial creatinine checks. (4) History of abdominal aortic aneurysm (AAA) repair: Requested records from [place] (5) Atrial fibrillation: Not on anticoagulation as outpatient (6) History of renal stent: Plan DVT prophylaxis: Currently on heparin drip neck Protonix for PUD prophylaxis Full code, discussed with patient Attestations Medical Necessity Statement*: Greater than 2 midnight admission is anticipated for above defined care Coding Level of Care Code Acute Code for Chg Fwd Diagnoses Bradycardia R00.1 NSTEMI (non-ST elevated myocardial infarction) I21.4 Acute on chronic kidney failure N17.9; N18.9 History of abdominal aortic aneurysm (AAA) repair Z98.890 Atrial fibrillation I48.91 History of renal stent
[2022-07-21] MEDS: aspirin 81 mg EC Tablet PO (14:10)
--- NOTE | 2022-07-21 15:14 | PC.NURSE ---
Patient arrived to unit via stretcher this AM. Patient AAOx4 with no c/o pain at this time. HR remains atilio with remaining VSS. Family at bedside. Room clean and clutter free with call light within reach. Hernandez in place and patent.
[2022-07-21 15:51] LABS: Troponin 5 6HR 167.1 ng/L (0-10); Troponin 5 6HR Delta -10.9 ng/L (0-12)
[2022-07-21 16:51] LABS: Partial Thromboplastin Time > 250.0 SECONDS (23.9-36.7)
--- NOTE | 2022-07-21 17:19 | PC.NURSE ---
Patients 6 hr trop and repeat PTT both resulted critical, physician notified and followed protocol. No new orders. Patient has no appetite throughout shift but is drinking apple juice. Family remains at bedside.
[2022-07-21] MEDS: ondansetron 2 mg/ML SDV 2 mL 4 MG IVP (17:24)
[2022-07-21] MEDS: dextrose 10% 1,000 ML 75 ML IV (19:19)
[2022-07-21] MEDS: glucagon 1 mg/mL KIT 1 mL IM ×2 (19:23→20:32)
[2022-07-21 20:37] LABS: Glucose Point of Care 40 mg/dL (70-110)
[2022-07-21 20:37] LABS: Glucose Point of Care 59 mg/dL (70-110)
[2022-07-21 20:37] LABS: Glucose Point of Care 28 mg/dL (70-110)
[2022-07-21] MEDS: atorvastatin 40 mg Tablet PO (20:57)
[2022-07-21 21:17] LABS: Glucose Point of Care 128 mg/dL (70-110)
[2022-07-21 22:07] LABS: Partial Thromboplastin Time > 250.0 SECONDS (23.9-36.7)
[2022-07-21 22:09] LABS: Glucose Point of Care 166 mg/dL (70-110)
--- NOTE | 2022-07-21 22:18 | PC.NURSE ---
Addendum entered by Perri Simmons RN 07/21/22 22:29: Additional order from Dr. Cruz received for the adult acute hypoglycemia protocol order set. PRN hypoglycemia medication orders placed. Original Note: Upon shift assessment, checked patients blood sugar, resulted at 28 with a recheck of 18. Patient alert and oriented abled to drink orange juice while contacting doctor. Dr. Cruz notified with new orders to apply D10 at 75 cc, 1 amp of D50,and 1 mg of glucagon IM. Reassessed blood sugar was then at 59. Reassessed 15 minutes later and blood sugar then decreased to 40. Dr. Cruz notified again at this time with new orders to increase D10 to 100cc, another amp of D50, and another 1 mg of glucagon. Patient reassessed 30 minutes later with a blood sugar of 128. Dr. Cruz notified with orders to continue D10 and stop NS. Patient remained Alert and oriented throughout entire event. Patient also had a critical lab of PTT greater than 250. Dr. Cruz notified with new orders to stop heparin drip for 4 hours, redraw, then contact him once test results.
[2022-07-21 22:57] LABS: Glucose Point of Care 178 mg/dL (70-110)
[2022-07-22] VITALS (67 sets, daily range): BP systolic 57–165; BP diastolic 33–107; PULSE 37–57; RESP 4–24; TEMP 36.5–37.1; O2SAT 88–100
[2022-07-22 00:23] LABS: Glucose Point of Care 91 mg/dL (70-110)
[2022-07-22] MEDS: glucagon 1 mg/mL KIT 1 mL IM ×2 (01:24→17:15)
--- NOTE | 2022-07-22 01:26 | PC.NURSE ---
Hypoglycemia Patient's blood sugar dropped to 40 with D10 still administering at 100 ml/hr. Dr. Cruz contacted and order received to administer 1 mg glucagon IM and an amp of D50. Patient willing to only drink 2 oz of juice; education provided on raising blood sugar. Patient stated she will try to eat peanut butter and crackers.
[2022-07-22 01:31] LABS: Glucose Point of Care 39 mg/dL (70-110)
[2022-07-22 01:31] LABS: Glucose Point of Care 40 mg/dL (70-110)
[2022-07-22 02:24] LABS: Glucose Point of Care 44 mg/dL (70-110)
--- NOTE | 2022-07-22 02:30 | PC.NURSE ---
Dr. Cruz notified of glucose and changed order of D10 from 100 cc to 125 cc.
[2022-07-22 02:37] LABS: Hematocrit 28.3 % (37.0-47.0); Mean Corpuscular HGB Conc 31.8 g/dL (30.0-36.0); Mean Corpuscular Hemoglobin 32.8 pg (28.0-34.0); Mean Corpuscular Volume 103.3 fl (81-99); Mean Platelet Volume 14.2 fL (7.4-10.4); Platelet Count 80 10^3/cmm (130-400); Red Blood Count 2.74 10^6/uL (4.1-5.3); Red Cell Distribution Width 14.3 % (12.1-15.1)
[2022-07-22] MEDS: octreotide 100 mcg/mL SDV 50 MCG IVP (03:09)
--- NOTE | 2022-07-22 03:15 | PC.NURSE ---
Hypoglycemia At 0315, patient's blood glucose 54. Dr. Cruz notified and order received to recheck blood sugar in 30 minutes. If recheck is >50 and patient is asymptomatic then continue frequent accuchecks. Recheck 58; Dr. Cruz notified and no new orders received.
[2022-07-22 03:20] LABS: Cortisol Random 22.18 ug/dL (2.47-19.5); Total Cells Counted 100 (0-100)
[2022-07-22 03:23] LABS: Absolute Neutrophil 7.7 10^3/cmm (1.4-6.5); Absolute Segmented Neutrophil 7.7 10/cmm (1.6-7.1); Eosinophils 0 %; Lymphocytes 7 %; Lymphocytes Absolute 0.6 10^3/cmm (1.2-3.4); Monocytes Absolute 0.7 10^3/cmm (0.1-0.6); Platelet Estimate Decreased (Normal); Segmented Neutrophils 85 %
[2022-07-22 03:24] LABS: Burr Cells 1+
[2022-07-22 03:25] LABS: Schistocytes 1+
[2022-07-22 03:26] LABS: Macrocytosis 2+
[2022-07-22 03:32] LABS: Partial Thromboplastin Time > 250.0 SECONDS (23.9-36.7)
[2022-07-22 03:38] LABS: Glucose Point of Care 54 mg/dL (70-110)
[2022-07-22 03:42] LABS: Glucose Point of Care 58 mg/dL (70-110)
[2022-07-22 03:53] LABS: Estmated Average Glucose 80; Hemoglobin A1C 4.4 % (4.0-6.0)
[2022-07-22 04:01] LABS: Alanine Aminotransferase 12 U/L (0-33); Albumin Level 2.6 g/dL (3.5-5.2); Alkaline Phosphatase 74 U/L (35-105); Aspartate Amino Transferase 199 U/L (0-32); Calcium 7.1 mg/dL (8.5-10.5); Carbon Dioxide 21 mmol/L (22-29); Chloride 96 mmol/L (98-107); Globulin 1.8 g/dL (1.3-4.6); Glucose 168 mg/dL (65-115); Magnesium 1.5 mg/dL (1.7-2.3); Osmolality Calculated 314 mOsm/kg (285-295); Sodium 133 mmol/L (136-145); Total Bilirubin 1.7 mg/dL (0.15-1.2); Total Protein 4.4 g/dL (6.6-8.7)
[2022-07-22 04:05] LABS: Anion Gap 19.6 (5-19); Potassium 3.6 mmol/L (3.5-5.1)
[2022-07-22 04:06] LABS: Blood Urea Nitrogen 109 mg/dL (8-23)
--- NOTE | 2022-07-22 04:17 | PC.NURSE ---
Patient had glucose check at 02:22 and a reading of 44. Dr. Cruz notified with new orders to give another amp of D50 and octreotide. Glucose rechecked and had risen to 58. Dr. Cruz ordered that if glucose level is above 50 to continue with care.
[2022-07-22 04:27] LABS: Glucose Point of Care 69 mg/dL (70-110)
--- NOTE | 2022-07-22 04:28 | PC.NURSE ---
Dr. Cruz notified of Altered mental status of patient. Continue to monitor mental status.
--- NOTE | 2022-07-22 05:16 | PC.NURSE ---
Glucose obtained at 0515, that reading was 43. Dr. Cruz notified with orders to watch and if glucose goes below 40 to give another amp of D50.
[2022-07-22] MEDS: dextrose 10% 1,000 ML 125 ML IV (05:51)
[2022-07-22 06:45] LABS: Glucose Point of Care 48 mg/dL (70-110)
--- NOTE | 2022-07-22 07:54 | PM.PN ---
Subjective Subjective: Meghana is somewhat sleepy this morning. Apparently there has been a great deal of difficulty keeping her blood sugars in normal range. She has been having low blood sugars. Also, her PTTs have been consistently high and so the heparin is temporarily shut off. She has had 900 mL of urine output. She is on D10 at 125 mL/h. Her blood pressures have been stable. Heart rates have been running in the 40s but she is now back in sinus rhythm with frequent PACs. She complains of right arm pain this morning due to difficulty with drawing blood and starting IVs. No chest pain. No shortness of breath. Chest x-ray this morning shows no acute abnormality creatinine is down to 4.2 from 4.7 yesterday. BUN is down to 109 from 114 yesterday. AST has gone up slightly to 199 but the ALT remains well within normal range. Vitals/I&O/Wt Last Vital Signs Temp 98.6 F 07/22/22 04:00 Pulse 39 L 07/22/22 06:00 Resp 13 07/22/22 06:00 BP 115/44 07/22/22 06:00 Pulse Ox 100 07/22/22 04:30 O2 Del Method Nasal Cannula 07/22/22 00:00 O2 Flow Rate 2 07/21/22 22:00 07/21/22 07/22/22 07/22/22 22:59 06:59 14:59 Intake Total 1456.751 / 8998.125 7838.000 / 3026.751 Output Total 900 / 900 Balance 556.751 / 4901.281 1392.000 / 2126.751 Weight last 48 hrs Weight 217 lb Weight 212 lb Physical Exam Narrative: GENERAL: In general she is arousable but tends to drift off to sleep. HEENT: Exam within normal limits. NECK: Supple without jugular vein distention. The carotid upstroke is normal without bruits. BACK: Exam normal. LUNGS: Clear. HEART: Regular rate and rhythm. ABDOMEN: Benign without organomegaly or tenderness. EXTREMITIES: No edema. NEUROLOGIC: Exam normal. SKIN: Unremarkable. Multiple bruises and excoriations. Urinary Catheter Management: Hernandez: Cath Placed During This Visit: yes Reason for Continuing Indwelling Catheter: Accurate Measurement of Urinary Output in Critically Ill Patients Urinary Catheter Date of Insertion: 07/21/22 Urinary Catheter Time of Insertion: 08:49 Data 07/22/22 02:30 07/22/22 02:30 A&P Assessment and plan (1) History of abdominal aortic aneurysm (AAA) repair: (2) History of bariatric surgery: (3) Macrocytic anemia: (4) Transaminitis: (5) Left bundle branch block: (6) Bradycardia: (7) Acute on chronic kidney failure: (8) JESSICA on CPAP: (9) CKD (chronic kidney disease) stage 3, GFR 30-59 ml/min: (10) PVD (peripheral vascular disease): (11) Irritable bowel syndrome with diarrhea: (12) Parkinson disease: (13) Essential hypertension: (14) Hyperlipidemia, mixed: (15) COPD (chronic obstructive pulmonary disease): Plan I am going to discontinue the heparin. We will continue to try to treat her medically. Her blood sugars are finally within the normal range. Her creatinine is coming down. Atrial fibrillation is resolved. She is still bradycardic though less so than yesterday. Blood pressure is well controlled. She is making an adequate amount of urine. Attestations Medical Necessity Statement*: Intensive care unit care for management of multiple medical problems as listed. Coding Level of Care Code Acute Code for Chg Fwd Diagnoses History of abdominal aortic aneurysm (AAA) repair Z98.890 History of bariatric surgery Z98.84 Macrocytic anemia D53.9 Transaminitis R74.01 Left bundle branch block I44.7 Bradycardia R00.1 Acute on chronic kidney failure N17.9; N18.9 JESSICA on CPAP G47.33; Z99.89 CKD (chronic kidney disease) stage 3, GFR 30-59 ml/min N18.30 PVD (peripheral vascular disease) I73.9 Irritable bowel syndrome with diarrhea K58.0 Parkinson disease G20 Essential hypertension I10 Hyperlipidemia, mixed E78.2 COPD (chronic obstructive pulmonary disease) J44.9
[2022-07-22 07:56] LABS: Glucose Point of Care 148 mg/dL (70-110)
[2022-07-22] MEDS: acetaminophen 325 mg Tablet 650 MG PO (08:28)
[2022-07-22] MEDS: pantoprazole DR 40 mg Tablet PO (08:30)
[2022-07-22] MEDS: aspirin 81 mg EC Tablet PO (08:30)
[2022-07-22 08:43] LABS: Glucose Point of Care 46 mg/dL (70-110)
[2022-07-22 08:43] LABS: Glucose Point of Care 102 mg/dL (70-110)
[2022-07-22 08:49] LABS: Glucose Point of Care 107 mg/dL (70-110)
--- NOTE | 2022-07-22 09:50 | CTR_ITS ---
PROCEDURE INFORMATION: Exam: CT Chest Without Contrast; Diagnostic Exam date and time: 07/22/2022 1:31 PM Age: 81 years old Clinical indication: Abdominal pain; Generalized; Chest pressure; Prior surgery; Surgery date: 6+ months; Additional info: Oliver on ckd, transaminitis, aaa S/P repiar 2 years ag TECHNIQUE: Imaging protocol: Diagnostic computed tomography of the chest without contrast. Radiation optimization: All CT scans at this facility use at least one of these dose optimization techniques: automated exposure control; mA and/or kV adjustment per patient size (includes targeted exams where dose is matched to clinical indication); or iterative reconstruction. REPORTING DATA: Count of CT and Cardiac NM exams in prior 12 months: This patient has received [address] and 0 known cardiac nuclear medicine studies in the 12 months prior to the current study. COMPARISON: CT chest wo con [id number] 07/20/2022 3:42 PM RADIATION DOSE METRICS: Total DLP (mGy-cm): 1110.64 FINDINGS: Tubes, catheters and devices: A right side PICC line extends into the SVC. Thyroid: Multiple circumscribed nodular densities seen within the left thyroid lobe which likely represent thyroid goiter. Lungs: Unremarkable. No consolidation. No masses. Pleural spaces: Left lower lobe pleural thickening No pneumothorax. No pleural effusion. . Heart: There is cardiomegaly. Heavy coronary artery calcifications are seen.. No cardiomegaly. No pericardial effusion. Mediastinal space: Thoracic inlet there is enlargement within of the left thyroid lobe. 3 cm x 4.3 cm x 4.7 cm Lymph nodes: Unremarkable. No enlarged lymph nodes. Subcarinal calcified lymph node Vasculature: There is ectatic calcified ectatic thoracic aorta. Bones/joints: Unremarkable. No acute fracture. Soft tissues: Multiple metallic surgical clips seen in the left upper quadrant and anterior aspect of the abdomen PROCEDURE INFORMATION: Exam: CT Abdomen And Pelvis Without Contrast Exam date and time: 07/22/2022 1:31 PM Age: 81 years old Clinical indication: Abdominal pain; Generalized; Chest pressure; Prior surgery; Surgery date: 6+ months; Additional info: Oliver on ckd, transaminitis, aaa S/P repiar 2 years ag TECHNIQUE: Imaging protocol: Computed tomography of the abdomen and pelvis without contrast. Radiation optimization: All CT scans at this facility use at least one of these dose optimization techniques: automated exposure control; mA and/or kV adjustment per patient size (includes targeted exams where dose is matched to clinical indication); or iterative reconstruction. REPORTING DATA: Count of CT and Cardiac NM exams in prior 12 months: This patient has received [address] and 0 known cardiac nuclear medicine studies in the 12 months prior to the current study. COMPARISON: CT chest wo [facility] [id number] 07/20/2022 3:42 PM RADIATION DOSE METRICS: Total DLP (mGy-cm): 1110.64 FINDINGS: Liver: Normal. No mass. Gallbladder and bile ducts: Normal. No calcified stones. No ductal dilation. Pancreas: Normal. No ductal dilation. Spleen: Normal. No splenomegaly. Adrenal glands: Normal. No mass. Kidneys and ureters: The right kidney is atrophic and very small in size. The left kidney appears unremarkable measuring 10 cm in length Stomach and bowel: Unremarkable. No obstruction. No mucosal thickening. Appendix: No evidence of appendicitis. Intraperitoneal space: Unremarkable. No free air. No significant fluid collection. Vasculature: abdominal aorta is ectatic calcified and shows aneurysm. There is a fusiform aneurysm from the level of the renals to the distal aorta and iliac bifurcations. The aorta shows AP measurement of 65 mm. The patient is status post placement of a metallic aortic stent. No evidence of endoleak. Lymph nodes: Unremarkable. No enlarged lymph nodes. Urinary bladder: Unremarkable as visualized. Reproductive: Status post hysterectomy Bones/joints: Dorsolumbar spine osteoarthritis No acute fracture. Soft tissues: Unremarkable. CT/[place] [id number] IMPRESSION: 1. Enlargement of the left thyroid lobe with multiple nodules 2. Left lower lobe pleural thickening 3. Cardiomegaly, Heavy coronary artery calcifications 4. Right side PICC line in the SVC IMPRESSION: 1. The abdominal aorta is ectatic calcified and shows aneurysm with stent. 2. Cholecystectomy, hysterectomy. 3. Multiple metallic surgical clips left upper abdomen 4. Atrophic right kidney 5. Dorsolumbar spine osteoarthritis
--- NOTE | 2022-07-22 09:51 | USCV_ITS ---
Meghana Wnog Age: 81 Gender: F : 1940 Exam Date: 07/22/2022 14:24 Ordering Phys: Melva Gracia MD Technologist: ERICA [place]am [place] [facility] [place]ication: htn Aortic Velocity @ SMA (cm/s) RIGHT KIDNEY LEFT KIDNEY Velocity (cm/s) Velocity (cm/s) Sys/Galo Sys/Galo Resistive Index Resistive Index 60.0 / 15.0 Upper Pole / 79.0 / 20.0 Mid Pole / / Lower Pole 88.0 / 13.0 118.4 Kidney Length (mm) 128.8 FINDINGS very limited renal doppler due to pt condition unable to get a majority of the doppler measurements CONCLUSIONS Very limited exam due to patient conditon No hydronephrosis Hernandez catheter Doppler portion of exam is non-diagnostic Trevor Persaud MD (Electronically Signed) Final Date: 24 Jul 2022 15:55 S
[2022-07-22 10:18] LABS: Glucose Point of Care 71 mg/dL (70-110)
--- NOTE | 2022-07-22 10:23 | USR_ITS ---
PROCEDURE INFORMATION: Exam: US Duplex Left Upper Extremity Arteries Exam date and time: 07/22/2022 2:56 PM Age: 81 years old Clinical indication: Pain; Arm, lower; Left; Additional info: Evalute for occlusion TECHNIQUE: Imaging protocol: Left Real-time ultrasound scan of the arteries of the left upper extremity with 2-D jeter scale, color Doppler flow and spectral waveform analysis. COMPARISON: [place] [id number] 07/22/2022 1:31 PM FINDINGS: Left subclavian artery: No occlusion or significant stenosis. Normal waveform. Left axillary artery: No occlusion or significant stenosis. Normal waveform. Left brachial artery: No occlusion or significant stenosis. Normal waveform. Left radial artery: No occlusion or significant stenosis. Normal waveform. Left ulnar artery: No occlusion or significant stenosis. Normal waveform. Soft tissues: Unremarkable. US/[place] [id number] IMPRESSION: No acute findings.
[2022-07-22 11:07] LABS: Lactate Dehydrogenase 311 U/L (135-214)
[2022-07-22 11:08] LABS: Haptoglobin < 10.0 mg/L (30-200); Lipase 1427 U/L (13-60)
[2022-07-22 11:40] LABS: Glucose Point of Care 130 mg/dL (70-110)
[2022-07-22 12:01] LABS: Potassium, Radom Urine 30 mmol/L; Urine Creatinine 56 mg/dL (28-217); Urine Random Chloride 47 mmol/L; Urine Random Sodium 50 mmol/L
[2022-07-22] MEDS: piperacillin-tazobactam 3.375 GM in sodium chloride 0.9% (plus) 50 ML IV ×2 (12:04→22:53)
--- NOTE | 2022-07-22 12:48 | XRR_ITS ---
PROCEDURE INFORMATION: Exam: XR Chest Exam date and time: 07/22/2022 1:05 PM Age: 81 years old Clinical indication: Device placement; Picc; Additional info: Picc placement TECHNIQUE: Imaging protocol: Radiologic exam of the chest. Views: 1 view. COMPARISON: CR (CHEST, ) 07/21/2022 6:30 AM FINDINGS: Tubes, catheters and devices: Right side PICC line extends to the cavoatrial junction Lungs: Unremarkable. No consolidation. Pleural spaces: Unremarkable. No pleural effusion. No pneumothorax. Heart/Mediastinum: Unremarkable. No cardiomegaly. Bones/joints: Metallic arthroplasty is present in the bilateral glenoid. Intraperitoneal space: Metallic surgical clips seen in the left upper quadrant XR/XR chest 1V portable [id number] IMPRESSION: 1. No acute findings. 2. Bilateral shoulder arthroplasty 3. Right side PICC line at the cavoatrial junction 4. Metallic surgical clips left upper quadrant
--- NOTE | 2022-07-22 13:03 | PC.NURSE ---
Consulted by house charge for pic placement. Consent obtained by icu nurse. RUE scanned by US an basilic vein was the best option. Vein was straight, 4mm, an free of visible clot. Pt draped in usual sterile fashion. Using real time US lidocaine injected, vein accessed, an picc floated into position. Chest xray obtained an waiting on tip confirmation. EBL less then 5 ml. No bleeding no hematoma. Pt arm circumference is 33 cm at 10 cm above the ac fossa.
[2022-07-22 13:11] LABS: Adenovirus Not Detected (NOT DETECT); Chlamydia Pneumoniae Not Detected (NOT DETECT); Coronavirus 229E,HKU1,NL63,OC4 Not Detected (NOT DETECT); Human Metapneumovirus Not Detected (NOT DETECT); Human Rhinovirus/Enterovirus Not Detected (NOT DETECT); Influenza A Not Detected (NOT DETECT); Influenza A H1 Not Detected (NOT DETECT); Influenza A H1-2009 Not Detected (NOT DETECT); Influenza A H3 Not Detected (NOT DETECT); Influenza B Not Detected (NOT DETECT); Mycoplasma Pneumoniae Not Detected (NOT DETECT); Parainfluenza Virus Type 1 Not Detected (NOT DETECT); Parainfluenza Virus Type 2 Not Detected (NOT DETECT); Parainfluenza Virus Type 3 Not Detected (NOT DETECT); Parainfluenza Virus Type 4 Not Detected (NOT DETECT); Respiratory Syncytial Virus A Not Detected (NOT DETECT); Respiratory Syncytial Virus B Not Detected (NOT DETECT); SARS-COV-2 Not Detected (NOT DETECT)
--- NOTE | 2022-07-22 13:15 | PC.PHAR ---
PT WILL GET 1500 MG VANCOMYCIN NOW TO LOAD THEN RECEIVE 1 GRAM Q 48H STARTING 07/24. CHECK VANC LEVEL BEFORE DOSE ON 07/26.
[2022-07-22 13:53] LABS: Glucose Point of Care 115 mg/dL (70-110)
--- NOTE | 2022-07-22 14:26 | PM.PN ---
Subjective Subjective: Overnight patient was persistently hypoglycemic, she received glucagon, and has been started on a D10 infusion which is continuing at this time. Fingersticks are better controlled after being on the D10 infusion. She also had a drop in her blood pressure down to 76 systolic after which Levophed infusion has been initiated. No fever. No leukocytosis. Has not had a bowel movement since coming to the hospital though outpatient did report diarrhea. She is more lethargic today. Has been sleeping for most of the day. urine output 900 cc, cr better at 4.2 today Medications: Reviewed: Yes Vitals/I&O/Wt Last Vital Signs Temp 97.8 F 07/22/22 09:30 Pulse 47 L 07/22/22 12:30 Resp 16 07/22/22 12:30 BP 140/49 07/22/22 12:30 Pulse Ox 93 07/22/22 12:30 O2 Del Method Nasal Cannula 07/22/22 12:30 O2 Flow Rate 6 07/22/22 12:30 07/21/22 07/22/22 07/22/22 22:59 06:59 14:59 Intake Total 1456.751 / 5372.050 2584.000 / 3026.751 120 / 120 Output Total 900 / 900 Balance 556.751 / 1015.976 6059.000 / 2126.751 120 / 120 Weight last 48 hrs Weight 98.43 kg Weight 96.162 kg Physical Exam Narrative: General: No acute distress, AO x3 HEENT: PERRLA, pupils bilaterally equal and reactive, pallors not present Chest: Normal vesicular breath sounds, no added sounds, equal good air entry bilaterally CVS: S1-S2 regular, no murmurs, no tachycardia, no gallops, no rubs Abdomen: Soft, nontender, no organomegaly, bowel sounds present Neuro: No focal deficits, moves all extremities but overall weak, difficult to lift legs off the bed Urinary Catheter Management: Hernandez: Cath Placed During This Visit: yes Reason for Continuing Indwelling Catheter: Accurate Measurement of Urinary Output in Critically Ill Patients Urinary Catheter Date of Insertion: 07/21/22 Urinary Catheter Time of Insertion: 08:49 Data 07/22/22 02:30 07/22/22 02:30 A&P Assessment and plan (1) Bradycardia: Patient noted to have bradycardia, baseline rhythm appears to be slow A-fib, heart rate ranging between 30 to 40 bpm. Blood pressure is currently maintained between 1 30-1 40 systolic. Holding metoprolol, patient takes 125 mics as outpatient. Continue telemetry monitoring (2) NSTEMI (non-ST elevated myocardial infarction): Baseline troponin elevated at 172, trending down at 2 hours to 168, trended won at 6 hrs Denies any current chest pain echo without RWMA, EF 60%., gr 1 diastolic dysfunction Troponin elevation maybe related to CKD Cardiology consult appreciated discontinued heparin drip (3) Hypotension: Started on levophed today May be related to bradycardia when BP dropped to 76 systolic No localizing signs or symptoms of infection,however given hypotension and hypoglycemia, will pursue w/up for any underlying infection. Thus far Ct chest withotu consolidation,. check blood cx. Ua negative for UTI. Empiric Zosyn and vanc while pending infectious w/up (4) Hypoglycemia: unclear etiology patient is not diabetic Not on any inuslin or other OHas has remote h/o bariatric surgery Cortisol random, TSH normal Check insulin level, C peptide, CT abdomen for insulinomas or adrenal masses (5) Acute on chronic kidney failure: Per family baseline creatinine appears to be about 3.5. Last creatinine in our system from July 05, 2022 at 3.3 Creatinine today at 4.2, down from 4.7. Urine output 900 cc May be related to hypotension Currently on d10 @ 125 cc/hr Renal artery Doppler to assess patency of stent Discussed with family that ideally would prefer to do a CTA, however due to concern for potential RUSSELL and need to be started on hemodialysis holding off for now while pending serial creatinine checks. Check CT abdomen/pelvis for any obstrcutive process (6) History of abdominal aortic aneurysm (AAA) repair: Requested records from [place] (7) Atrial fibrillation: Not on anticoagulation as outpatient (8) History of renal stent: Plan DVT prophylaxis: Currently on heparin drip neck Protonix for PUD prophylaxis Full code, discussed with patient Attestations Medical Necessity Statement*: Ct imaging today, monmitor renal fucntion, continued telemetry monitoring Coding Level of Care Code Acute Code for [facility] Fwd Diagnoses Bradycardia R00.1 NSTEMI (non-ST elevated myocardial infarction) I21.4 Hypotension I95.9 Hypoglycemia E16.2 Acute on chronic kidney failure N17.9; N18.9 History of abdominal aortic aneurysm (AAA) repair Z98.890 Atrial fibrillation I48.91 History of renal stent
[2022-07-22] MEDS: dextrose 5% 1,000 ML 100 ML IV (14:47)
[2022-07-22] MEDS: vancomycin 1,500 MG/300 ML PIGGYBACK 200 MG IV (14:47)
[2022-07-22 15:01] LABS: Partial Thromboplastin Time 50.2 SECONDS (23.9-36.7)
[2022-07-22 16:47] LABS: Glucose Point of Care 36 mg/dL (70-110)
[2022-07-22 16:47] LABS: Glucose Point of Care 52 mg/dL (70-110)
[2022-07-22 17:34] LABS: Glucose Point of Care 129 mg/dL (70-110)
--- NOTE | 2022-07-22 19:00 | PC.NURSE ---
Levophed Upon shift assessment, patient's levophed administering at 4 mcg/min while MAR displays 10 mcg/min. MAR updated to show administration rate; volume of bag unable to be edited in MAR but approximately 50 mls remaining.
[2022-07-22 19:21] LABS: Glucose Point of Care 73 mg/dL (70-110)
--- NOTE | 2022-07-22 19:33 | PC.NURSE ---
Pt rested in bed throughout shift. She has been lethargic and very sleepy. HEr heart rate has been bradycardiac 39-56 bpm. Her Bp dropped this am, Levophed gtt started at 10mcg/min, finished the shift at 6mcg/min. Her fingers an toes are purple in color, occassinally her fingers on the left will pinken up. When her fingers are pink, her blood sugars are easier to obtain. She has had some hypglycemic episodes today, she was started on D 20%. Her lungs are clear to auscultation. Her lower extremities have cellulitis with wet scabbed areas anteriorly. Pt had some nausea prior to lunch, Zofran admin. Her appetite is very poor. Urine output of 750 ml noted. NO BM today. Pt would rouse enough, multiple times to refuse repositioning.
[2022-07-22 20:04] LABS: Glucose Point of Care 111 mg/dL (70-110)
[2022-07-22 21:30] LABS: Glucose Point of Care 124 mg/dL (70-110)
[2022-07-22] MEDS: atorvastatin 40 mg Tablet PO (21:51)
[2022-07-22 22:49] LABS: Glucose Point of Care 132 mg/dL (70-110)
[2022-07-23] VITALS (99 sets, daily range): BP systolic 80–134; BP diastolic 37–67; PULSE 45–80; RESP 13–32; TEMP 36.4–36.8; O2SAT 86–100; BMI 31.3
[2022-07-23 00:37] LABS: Glucose Point of Care 135 mg/dL (70-110)
[2022-07-23 03:06] LABS: Basophils % 0.3 %; Eosinophils # 0.1 10^3/uL (0.0-0.8); Eosinophils % 1.5 %; Hematocrit 27.9 % (37.0-47.0); Hemoglobin 9.2 g/dL (11.5-15.3); Lymphocytes # 0.8 10^3/uL (0.8-4.8); Lymphocytes % 8.5 %; Mean Corpuscular Hemoglobin 33.5 pg (28.0-34.0); Mean Corpuscular Volume 101.5 fl (81-99); Monocytes # 0.9 10^3/uL (0.2-0.9); Monocytes % 9.7 %; Neutrophils # 7.48 10^3/uL (1.8-7.7); Neutrophils % 79.7 %; Nucleated Red Blood Cells % 0 %; Platelet Count 75 10^3/cmm (130-400); Red Blood Count 2.75 10^6/uL (4.1-5.3); Red Cell Distribution Width 14.4 % (12.1-15.1); White Blood Count 9.4 10^3/uL (4.0-10.0)
[2022-07-23 03:24] LABS: Alanine Aminotransferase 11 U/L (0-33); Albumin Level 2.4 g/dL (3.5-5.2); Alkaline Phosphatase 75 U/L (35-105); Anion Gap 17.3 (5-19); Aspartate Amino Transferase 178 U/L (0-32); Calcium 6.8 mg/dL (8.5-10.5); Carbon Dioxide 23 mmol/L (22-29); Chloride 94 mmol/L (98-107); Globulin 1.8 g/dL (1.3-4.6); Glucose 112 mg/dL (65-115); Osmolality Calculated 303 mOsm/kg (285-295); Potassium 3.3 mmol/L (3.5-5.1); Sodium 131 mmol/L (136-145); Total Protein 4.2 g/dL (6.6-8.7)
[2022-07-23 03:31] LABS: Glucose Point of Care 123 mg/dL (70-110)
[2022-07-23 03:39] LABS: Blood Urea Nitrogen 97 mg/dL (8-23)
--- NOTE | 2022-07-23 04:16 | PC.NURSE ---
Potassium Patient's potassium and calcium levels slowly decreasing, with a current measurement of 3.[address] Cruz contacted and order received for 40 meq PO potassium once.
[2022-07-23] MEDS: potassium chloride ER 20 mEq Tablet 40 MEQ PO (05:11)
[2022-07-23 07:41] LABS: Glucose Point of Care 130 mg/dL (70-110)
[2022-07-23 07:41] LABS: Glucose Point of Care 128 mg/dL (70-110)
[2022-07-23 07:41] LABS: Glucose Point of Care 71 mg/dL (70-110)
[2022-07-23 07:41] LABS: Glucose Point of Care 117 mg/dL (70-110)
[2022-07-23 07:41] LABS: Glucose Point of Care 139 mg/dL (70-110)
[2022-07-23 07:41] LABS: Glucose Point of Care 127 mg/dL (70-110)
[2022-07-23 07:41] LABS: Glucose Point of Care 140 mg/dL (70-110)
--- NOTE | 2022-07-23 07:49 | PC.NURSE ---
Blood sugars: right side 71mg/dl. left side 139mg/dl. Still measuring unequal.
--- NOTE | 2022-07-23 08:08 | P.PN_ITS ---
Subjective Subjective: Meghana is arousable this morning but still very sleepy. I see that she was put on norepinephrine yesterday. One of her visitors was questioning me as to why her blood sugars are vastly different from 1 arm to the other. I explained that she is getting D20 in one arm. She has had 1725 mL of urine output today. She is not eating or drinking much. Her platelet count is down to 75,000. Her BUN is down to 97 mg/dL. Her creatinine is down to 3.7 mg/dL. Her AST is down to 178. She is in sinus rhythm. Heart rates are running in the 50s now. Vitals/I&O/Wt Last Vital Signs Temp 97.5 F L 07/23/22 07:30 Pulse 50 L 07/23/22 07:56 Resp 20 H 07/23/22 07:56 BP 114/38 07/23/22 07:42 Pulse Ox 98 07/23/22 07:56 O2 Del Method Nasal Cannula 07/23/22 07:56 O2 Flow Rate 1 07/23/22 07:56 07/22/22 07/23/22 07/23/22 22:59 06:59 14:59 Intake Total 1092.333 / 2212.333 550 / 2762.333 Output Total 725 / 725 1000 / 1725 Balance 367.333 / 1487.333 -450 / 1037.333 Weight last 48 hrs Weight 212 lb Weight 217 lb Physical Exam Narrative: GENERAL: In general she is groggy but arousable and can answer questions appropriately. HEENT: Exam within normal limits. NECK: Supple without jugular vein distention. The carotid upstroke is normal wi thout bruits. BACK: Exam normal. LUNGS: Clear. HEART: Regular rate and rhythm. ABDOMEN: Benign without organomegaly or tenderness. EXTREMITIES: No edema. NEUROLOGIC: Exam normal. SKIN: Unremarkable. Urinary Catheter Management: Hernandez: Cath Placed During This Visit: yes Reason for Continuing Indwelling Catheter: Accurate Measurement of Urinary Output in Critically Ill Patients Urinary Catheter Date of Insertion: 07/21/22 Urinary Catheter Time of Insertion: 08:49 Data 07/23/22 02:48 07/23/22 02:48 Micro: Microbiology 07/22/22 14:15 Blood Culture - Preliminary Blood SPECIMEN COLLECTED 07/22/22 14:00 Blood Culture - Preliminary Blood SPECIMEN COLLECTED A&P Assessment and plan (1) Hypotension: (2) Hypoglycemia: (3) NSTEMI (non-ST elevated myocardial infarction): (4) History of abdominal aortic aneurysm (AAA) repair: (5) History of bariatric surgery: (6) Macrocytic anemia: (7) Transaminitis: (8) Left bundle branch block: (9) Bradycardia: (10) Acute on chronic kidney failure: (11) History of renal stent: (12) JESSICA on CPAP: (13) CKD (chronic kidney disease) stage 3, GFR 30-59 ml/min: (14) PVD (peripheral vascular disease): (15) Parkinson disease: (16) Essential hypertension: (17) Hyperlipidemia, mixed: (18) COPD (chronic obstructive pulmonary disease): Plan She is very slowly improving. The blood sugar differential is related to the infused D20. BUN and creatinine are coming down. Transaminases are coming down. Urine output is adequate. I stopped the heparin yesterday due to bleeding into the skin and consistently high PTTs. I am going to add back some low-dose Lovenox for prophylaxis this morning. Attestations Medical Necessity Statement*: Continued hospitalization for management of the above multiple significant medical problems. and High Time for a total of 40 minutes, includes reviewing past or interval history, examining/interviewing patient, placing orders, counseling patient/family/other support, updating patient/family/other support, discussing plan of care with staff, documenting encounter and coordinating care Diagnoses Hypotension I95.9 Hypoglycemia E16.2 NSTEMI (non-ST elevated myocardial infarction) I21.4 History of abdominal aortic aneurysm (AAA) repair Z98.890 History of bariatric surgery Z98.84 Macrocytic anemia D53.9 Transaminitis R74.01 Left bundle branch block I44.7 Bradycardia R00.1 Acute on chronic kidney failure N17.9; N18.9 History of renal stent JESSICA on CPAP G47.33; Z99.89 CKD (chronic kidney disease) stage 3, GFR 30-59 ml/min N18.30 PVD (peripheral vascular disease) I73.9 Parkinson disease G20 Essential hypertension I10 Hyperlipidemia, mixed E78.2 COPD (chronic obstructive pulmonary disease) J44.9
[2022-07-23] MEDS: pantoprazole DR 40 mg Tablet PO (08:48)
[2022-07-23] MEDS: enoxaparin 40 mg/0.4 mL Syringe SUBCUT (08:49)
[2022-07-23] MEDS: aspirin 81 mg EC Tablet PO (08:49)
[2022-07-23] MEDS: albumin 25 G/100 ML BAG 60 G IV ×2 (11:33→17:47)
[2022-07-23] MEDS: sodium chloride 0.9% 500 ML IV (11:33)
[2022-07-23] MEDS: piperacillin-tazobactam 3.375 GM in sodium chloride 0.9% (plus) 50 ML IV ×2 (11:33→23:56)
[2022-07-23 11:37] LABS: Glucose Point of Care 163 mg/dL (70-110)
[2022-07-23] MEDS: ondansetron 2 mg/ML SDV 2 mL 4 MG IVP (11:53)
--- NOTE | 2022-07-23 12:00 | PC.NURSE ---
Pt complaining of nausea off and on this am.. Refused Zofran until now. SEE MAR> Lemon-[place] soda provided earlier for pt to sip. She rarely intakes small sips.
--- NOTE | 2022-07-23 14:54 | PM.PN ---
Subjective Subjective: Patient was seen and examined this morning, she denied any, significant shortness of breath, chest pain. Continue to be on D20 water, frequent blood sugar is being monitored, she has continued to be on, Levophed, for hypertension, though requirement went slightly up this morning, for which she received 500 cc normal saline bolus, as well as she was started on albumin, platelet count has down trended to 75,000 We will hold Lovenox as well as aspirin.Continue to monitor platelet count for now. Medications: Reviewed: Yes Medication Review Details: Generic Name Dose Route Start Last Admin Trade Name Freq PRN Reason Stop Dose Admin Acetaminophen 650 mg 07/21/22 13:02 07/22/22 08:28 Acetaminophen 32 5 Mg Tablet PO 650 mg Q6H PRN Administration MILD PAIN Aspirin 81 mg 07/21/22 13:10 07/23/22 08:49 Aspirin 81 Mg Ec Tablet PO 81 mg DAILY JOSE Administration Atorvastatin Calci um 40 mg 07/21/22 21:00 07/22/22 21:51 Atorvastatin 40 Mg Tablet PO 40 mg BEDTIME JOSE Administration Enoxaparin Sodium 40 mg 07/23/22 08:30 07/23/22 08:49 Enoxaparin 40 Mg /0.4 Ml Syringe SUBCUT 40 mg Q24H JOSE Administration Dextrose 35.5 ml/ Sterile 50 mls @ 600 mls/ hr 07/22/22 01:25 07/22/22 04:16 Water 14.5 ml/ N /A IVP Infused PRN PRN Infusion HYPOGLYCEMIA Piperacillin Sod/T azobactam 50 mls @ 12.5 mls /hr 07/22/22 11:00 07/23/22 11:33 Sod 3.375 gm/ So dium Chloride IV 12.5 mls/hr Q12H JOSE Administration Protocol Norepinephrine Bit artrate 4 mg 254 mls @ 0 mls/h r 07/22/22 11:45 07/23/22 14:30 / Dextrose IV 2 mcg/min .Q0M JOSE 7.62 mls/hr Titration Protocol Per Protocol Dextrose 500 mls @ 50 mls/ hr 07/22/22 17:00 07/23/22 14:42 D20w IV 50 mls/hr .Q10H JOSE Administration Albumin Human 25 g in 100 mls @ 60 mls/hr 07/23/22 10:15 07/23/22 14:40 Albumin IV 07/24/22 07:00 Infused Q8H JOSE Infusion Ondansetron HCl 4 mg 07/21/22 09:41 07/23/22 11:53 Ondansetron 2 Mg /Ml Sdv 2 Ml IVP 4 mg Q6H PRN Administration NAUSEA AND VOMITI NG Pantoprazole Sodiu m 40 mg 07/22/22 09:00 07/23/22 08:[address] 40 Mg Tablet PO 40 mg DAILY JOSE Administration Vitals/I&O/Wt Last Vital Signs Temp 97.5 F L 07/23/22 07:30 Pulse 56 L 07/23/22 12:45 Resp 14 07/23/22 12:45 BP 134/52 07/23/22 12:45 Pulse Ox 96 07/23/22 12:30 O2 Del Method Nasal Cannula 07/23/22 12:45 O2 Flow Rate 2 07/23/22 12:45 07/22/22 07/23/22 07/23/22 22:59 06:59 14:59 Intake Total 1092.333 / 2212.333 550 / 2762.333 1341.033 / 1341.033 Output Total 725 / 725 1000 / 1725 Balance 367.333 / 1487.333 -450 / 6862.432 5370.033 / 1341.033 Weight last 48 hrs Weight 96.162 kg Weight 98.43 kg Physical Exam Const: COMMON NORMALS: patient oriented x3 HENMT: COMMON NORMALS: normocephalic and atraumatic HEAD & SCALP: normocephalic and atraumatic Resp: COMMON NORMALS: normal respiratory effort, No retractions, No use of accessory muscles and clear to auscultation bilaterally EFFORT & INSPECTION: Yes symmetric chest movement AUSCULTATION: clear to auscultation bilaterally Cardio: COMMON NORMALS: regular rate, regular rhythm, S1 normal heart sound present, S2 normal heart sound present, No gallops present (Cardio), No murmurs present (Cardio), No rub (Cardio) and Peripheral pulses 2+ throughout RATE: regular rate RHYTHM: regular rhythm HEART SOUNDS: S1 normal heart sound present and S2 normal heart sound present PERIPHERAL PULSES: Peripheral pulses 2+ throughout GI: COMMON NORMALS: Normal to inspection, nondistended, normoactive bowel sounds present, Soft to palpation, non-tender, No hepatosplenomegaly present and no masses AUSCULTATION: Yes normoactive bowel sounds PALPATION: Yes Soft to palpation and Yes No hepatosplenomegaly present RECTAL EXAM: deferred Extremity: COMMON NORMALS: no clubbing, cyanosis or edema and no pedal edema NARRATIVE EXTREMITY EXAM: Bilateral lower extremity redness and tenderness present. Neuro: COMMON NORMALS: patient oriented x3 Urinary Catheter Management: Hernandez: Cath Placed During This Visit: yes Reason for Continuing Indwelling Catheter: Accurate Measurement of Urinary Output in Critically Ill Patients Urinary Catheter Date of Insertion: 07/21/22 Urinary Catheter Time of Insertion: 08:49 Data 07/23/22 02:48 07/23/22 02:48 Micro: Microbiology 07/22/22 14:00 Blood Culture - Preliminary Blood NEGATIVE TO DATE 07/22/22 14:15 Blood Culture - Preliminary Blood NEGATIVE TO DATE A&P Assessment and plan (1) Bradycardia: Patient noted to have bradycardia, baseline rhythm appears to be slow A-fib, heart rate ranging between 30 to 40 bpm. Blood pressure is currently maintained between 1 30-1 40 systolic. Holding metoprolol, patient takes 125 mics as outpatient. Continue telemetry monitoring (2) NSTEMI (non-ST elevated myocardial infarction): Baseline troponin elevated at 172, trending down at 2 hours to 168, trended won at 6 hrs Denies any current chest pain echo without RWMA, EF 60%., gr 1 diastolic dysfunction Troponin elevation maybe related to CKD Cardiology consult appreciated discontinued heparin drip (3) Hypotension: Started on levophed today May be related to bradycardia when BP dropped to 76 systolic No localizing signs or symptoms of infection,however given hypotension and hypoglycemia, will pursue w/up for any underlying infection. Thus far Ct chest withotu consolidation,. check blood cx. Ua negative for UTI. Empiric Zosyn and vanc while pending infectious w/up (4) Hypoglycemia: unclear etiology patient is not diabetic Not on any inuslin or other OHas has remote h/o bariatric surgery Cortisol random, TSH normal Check insulin level, C peptide, CT abdomen for insulinomas or adrenal masses (5) Acute on chronic kidney failure: Per family baseline creatinine appears to be about 3.5. Last creatinine in our system from July 05, 2022 at 3.3 Creatinine today at 4.2, down from 4.7. Urine output 900 cc May be related to hypotension Currently on d10 @ 125 cc/hr Renal artery Doppler to assess patency of stent Discussed with family that ideally would prefer to do a CTA, however due to concern for potential RUSSELL and need to be started on hemodialysis holding off for now while pending serial creatinine checks. Check CT abdomen/pelvis for any obstrcutive process (6) History of abdominal aortic aneurysm (AAA) repair: Requested records from [place] (7) Atrial fibrillation: Not on anticoagulation as outpatient (8) History of renal stent: (9) Thrombocytopenia: Thrombocytopenia: Admission platelet count:102 Current platelet count is 75,000 Peripheral blood smear reviewed: Follow DIC panel 4T Score Currently patient has no petechiae, purpura or significant bleeding. Monitor platelet count for now Plan DVT prophylaxis: Currently on heparin drip neck Protonix for PUD prophylaxis Full code, discussed with patient Attestations Medical Necessity Statement*: In hospital for IV fluids, antibiotics. Coding Level of Care Code Acute Code for g Fwd Diagnoses Bradycardia R00.1 NSTEMI (non-ST elevated myocardial infarction) I21.4 Hypotension I95.9 Hypoglycemia E16.2 Acute on chronic kidney failure N17.9; N18.9 History of abdominal aortic aneurysm (AAA) repair Z98.890 Atrial fibrillation I48.91 History of renal stent Thrombocytopenia D69.6
--- NOTE | 2022-07-23 19:27 | PC.NURSE ---
Shift summary: Pt rested in bed throughout shift. She is much more alert today. Her eyes are clearer. She has participated in more extensive conversations with staff and family.She revived a IV fluid bolus and started on Albumin today. She remains on Levophed gtt, started the day at 2mcg/min, it needed increased this am to 5mcg/min . It is now infusing at 1 mcg/min. Pt has been offered repositionng at regular intervals , she has refused most of it even after explaining the necessity to prevent pressure sores. Hier fingers and toes are pink today. Urine out put of 750ml again this shift. No BM noted today. Pt did complain of nausea this am. After a couple hours of it , this nurse was able to talk her into Zofran which hepled. Clear soda helped her nausea as well.
[2022-07-23] MEDS: atorvastatin 40 mg Tablet PO (20:41)
[2022-07-23 20:57] LABS: Glucose Point of Care 127 mg/dL (70-110)
[2022-07-24] VITALS (64 sets, daily range): BP systolic 69–133; BP diastolic 41–66; PULSE 59–98; RESP 12–22; TEMP 36.7–37.3; O2SAT 93–98; BMI 31.6
[2022-07-24 00:21] LABS: Glucose Point of Care 125 mg/dL (70-110)
[2022-07-24 03:11] LABS: Basophils % 0.3 %; Eosinophils # 0.1 10^3/uL (0.0-0.8); Eosinophils % 1.2 %; Hemoglobin 8.3 g/dL (11.5-15.3); Lymphocytes # 0.6 10^3/uL (0.8-4.8); Lymphocytes % 8.8 %; Mean Corpuscular HGB Conc 33.2 g/dL (30.0-36.0); Mean Corpuscular Hemoglobin 33.2 pg (28.0-34.0); Monocytes # 0.8 10^3/uL (0.2-0.9); Monocytes % 11.5 %; Neutrophils # 5.69 10^3/uL (1.8-7.7); Neutrophils % 77.8 %; Nucleated Red Blood Cells % 0 %; Platelet Count 63 10^3/cmm (130-400); Red Cell Distribution Width 14.5 % (12.1-15.1); White Blood Count 7.3 10^3/uL (4.0-10.0)
[2022-07-24] MEDS: albumin 25 G/100 ML BAG 60 G IV ×3 (03:14→20:56)
[2022-07-24 03:30] LABS: INR 1.77 (0.8-1.2)
[2022-07-24 03:31] LABS: Partial Thromboplastin Time 65.4 SECONDS (23.9-36.7)
[2022-07-24 03:40] LABS: Alanine Aminotransferase 13 U/L (0-33); Albumin Level 2.7 g/dL (3.5-5.2); Alkaline Phosphatase 77 U/L (35-105); Anion Gap 19.6 (5-19); Aspartate Amino Transferase 174 U/L (0-32); Calcium 7.1 mg/dL (8.5-10.5); Carbon Dioxide 21 mmol/L (22-29); Chloride 94 mmol/L (98-107); Globulin 1.7 g/dL (1.3-4.6); Glucose 107 mg/dL (65-115); Osmolality Calculated 302 mOsm/kg (285-295); Potassium 3.6 mmol/L (3.5-5.1); Sodium 131 mmol/L (136-145); Total Bilirubin 2.6 mg/dL (0.15-1.2); Total Protein 4.4 g/dL (6.6-8.7)
[2022-07-24 03:53] LABS: Blood Urea Nitrogen 94 mg/dL (8-23)
[2022-07-24 04:22] LABS: Fibrinogen 54 mg/dL (174-498)
[2022-07-24 04:33] LABS: Glucose Point of Care 126 mg/dL (70-110)
--- NOTE | 2022-07-24 07:48 | PM.PN ---
Subjective Subjective: Meghana is a little more alert this morning. She remains on norepinephrine at 5 mcg/min. She says she does not feel well but cannot be specific. Her heart rate has been in the 60s and 70s now. The rhythm is sinus. Her urine output is 1225 mL. Blood pressure running about 105/70. Hemoglobin is 8.3.BUN and creatinine are stable at 94 and 3.8. The AST is unchanged at 174. Bilirubin is slightly higher at 2.6. As I understand it from the nurses the blood sugars are now the same no matter the recovery site. Vitals/I&O/Wt Last Vital Signs Temp 99.2 F 07/24/22 04:00 Pulse 69 07/24/22 06:00 Resp 18 07/24/22 06:00 BP 108/43 07/24/22 06:00 Pulse Ox 95 07/24/22 06:00 O2 Del Method Nasal Cannula 07/24/22 04:00 O2 Flow Rate 2 07/24/22 04:00 07/23/22 07/24/22 07/24/22 22:59 06:59 14:59 Intake Total 280.861 / 1721.894 726.518 / 2448.412 Output Total 750 / 750 475 / 1225 Balance -469.139 / 971.894 251.518 / 1223.412 Weight last 48 hrs Weight 213 lb 12.8 oz Weight 212 lb Physical Exam Narrative: GENERAL: Patient is awake and alert HEENT: Exam within normal limits. NECK: Supple without jugular vein distention. The carotid upstroke is normal without bruits. BACK: Exam normal. LUNGS: Clear. HEART: Regular rate and rhythm. ABDOMEN: Benign without organomegaly or tenderness. EXTREMITIES: No edema. NEUROLOGIC: Exam normal. SKIN: Unremarkable. Urinary Catheter Management: Hernandez: Cath Placed During This Visit: yes Reason for Continuing Indwelling Catheter: Accurate Measurement of Urinary Output in Critically Ill Patients Urinary Catheter Date of Insertion: 07/21/22 Urinary Catheter Time of Insertion: 08:49 Data 07/24/22 02:40 07/24/22 02:40 Micro: Microbiology 07/22/22 14:00 Blood Culture - Preliminary Blood NEGATIVE TO DATE 07/22/22 14:15 Blood Culture - Preliminary Blood NEGATIVE TO DATE A&P Assessment and plan (1) Thrombocytopenia: (2) History of abdominal aortic aneurysm (AAA) repair: (3) History of bariatric surgery: (4) Macrocytic anemia: (5) Transaminitis: (6) Acute on chronic kidney failure: (7) History of renal stent: (8) JESSICA on CPAP: (9) PVD (peripheral vascular disease): (10) Parkinson disease: (11) Essential hypertension: (12) Hyperlipidemia, mixed: (13) COPD (chronic obstructive pulmonary disease): Plan Things are largely unchanged today. Continue present care. I spoke to her daughter again this morning. Attestations Medical Necessity Statement*: Continued hospital stay for multiple serious medical problems as mentioned. and High Time for a total of 35 minutes, includes reviewing past or interval history, examining/interviewing patient, placing orders, counseling patient/family/other support, updating patient/family/other support, discussing plan of care with staff, communicating with other healthcare providers, documenting encounter and coordinating care Diagnoses Thrombocytopenia D69.6 History of abdominal aortic aneurysm (AAA) repair Z98.890 History of bariatric surgery Z98.84 Macrocytic anemia D53.9 Transaminitis R74.01 Acute on chronic kidney failure N17.9; N18.9 History of renal stent JESSICA on CPAP G47.33; Z99.89 PVD (peripheral vascular disease) I73.9 Parkinson disease G20 Essential hypertension I10 Hyperlipidemia, mixed E78.2 COPD (chronic obstructive pulmonary disease) J44.9
[2022-07-24 08:46] LABS: Glucose Point of Care 132 mg/dL (70-110)
[2022-07-24 10:00] LABS: C-Peptide 4.64 ng/mL (0.80-3.85)
[2022-07-24 11:25] LABS: Insulin ( Reference Lab Test) 14.1 uIU/mL
[2022-07-24] MEDS: piperacillin-tazobactam 3.375 GM in sodium chloride 0.9% (plus) 50 ML IV ×2 (12:21→23:07)
[2022-07-24] MEDS: vancomycin 1,000 MG in sodium chloride 0.9% 250 ML 250 MG IV (12:22)
[2022-07-24 12:36] LABS: Glucose Point of Care 125 mg/dL (70-110)
--- NOTE | 2022-07-24 12:38 | PM.PN ---
Subjective Subjective: Patient was seen and examined this morning, she was extremely drowsy, platelet count has further gone down today, hemoglobin is also down trended, continue to be on Levophed.Blood sugar is slightly better controlled today.Has been afebrile. Her other vitals and labs have been reviewed. Medications: Reviewed: Yes Medication Review Details: Generic Name Dose Route Start Last Admin Trade Name Markq PRN Reason Stop Dose Admin Acetaminophen 650 mg 07/21/22 13:02 07/22/22 08:28 Acetaminophen 32 5 Mg Tablet PO 650 mg Q6H PRN Administration MILD PAIN Aspirin 81 mg 07/21/22 13:10 07/23/22 08:49 Aspirin 81 Mg Ec Tablet PO 81 mg DAILY JOSE Administration Atorvastatin Calci um 40 mg 07/21/22 21:00 07/23/22 20:41 Atorvastatin 40 Mg Tablet PO 40 mg BEDTIME JOSE Administration Enoxaparin Sodium 40 mg 07/23/22 08:30 07/23/22 08:49 Enoxaparin 40 Mg /0.4 Ml Syringe SUBCUT 40 mg Q24H JOSE Administration Dextrose 35.5 ml/ Sterile 50 mls @ 600 mls/ hr 07/22/22 01:25 07/22/22 04:16 Water 14.5 ml/ N /A IVP Infused PRN PRN Infusion HYPOGLYCEMIA Piperacillin Sod/T azobactam 50 mls @ 12.5 mls /hr 07/22/22 11:00 07/24/22 12:21 Sod 3.375 gm/ So dium Chloride IV 12.5 mls/hr Q12H JOSE Administration Protocol Norepinephrine Bit artrate 4 mg 254 mls @ 0 mls/h r 07/22/22 11:45 07/24/22 08:35 / Dextrose IV 5 mcg/min .Q0M JOSE 19.05 mls/hr Administration Protocol Per Protocol Vancomycin HCl 1,0 00 mg/ 250 mls @ 250 mls /hr 07/24/22 13:00 07/24/22 12:22 Sodium Chloride IV 250 mls/hr Q48H JOSE Administration Protocol Dextrose 500 mls @ 50 mls/ hr 07/22/22 17:00 07/24/22 10:38 D20w IV 50 mls/hr .Q10H JOSE Administration Ondansetron HCl 4 mg 07/21/22 09:41 07/23/22 11:53 Ondansetron 2 Mg /Ml Sdv 2 Ml IVP 4 mg Q6H PRN Administration NAUSEA AND VOMITI NG Pantoprazole Sodiu m 40 mg 07/22/22 09:00 07/24/22 09:[address] 40 Mg Tablet PO Not Given DAILY JOSE Vitals/I&O/Wt Last Vital Signs Temp 98.4 F 07/24/22 08:00 Pulse 83 07/24/22 10:15 Resp 14 07/24/22 10:15 BP 125/50 07/24/22 10:15 Pulse Ox 97 07/24/22 10:15 O2 Del Method Nasal Cannula 07/24/22 09:58 O2 Flow Rate 2 07/24/22 09:58 07/23/22 07/24/22 07/24/22 22:59 06:59 14:59 Intake Total 280.861 / 1721.894 732.106 / 2454.000 459.167 / 459.167 Output Total 750 / 750 475 / 1225 Balance -469.139 / 971.894 257.106 / 1229.000 459.167 / 459.167 Weight last 48 hrs Weight 96.978 kg Weight 96.162 kg Physical Exam Const: COMMON NORMALS: patient oriented x3 HENMT: COMMON NORMALS: normocephalic and atraumatic HEAD & SCALP: normocephalic and atraumatic Resp: COMMON NORMALS: normal respiratory effort, No retractions, No use of accessory muscles and clear to auscultation bilaterally EFFORT & INSPECTION: Yes symmetric chest movement AUSCULTATION: clear to auscultation bilaterally Cardio: COMMON NORMALS: regular rate, regular rhythm, S1 normal heart sound present, S2 normal heart sound present, No gallops present (Cardio), No murmurs present (Cardio), No rub (Cardio) and Peripheral pulses 2+ throughout RATE: regular rate RHYTHM: regular rhythm HEART SOUNDS: S1 normal heart sound present and S2 normal heart sound present PERIPHERAL PULSES: Peripheral pulses 2+ throughout GI: COMMON NORMALS: Normal to inspection, nondistended, normoactive bowel sounds present, Soft to palpation, non-tender, No hepatosplenomegaly present and no masses AUSCULTATION: Yes normoactive bowel sounds PALPATION: Yes Soft to palpation and Yes No hepatosplenomegaly present RECTAL EXAM: deferred Extremity: COMMON NORMALS: no clubbing, cyanosis or edema and no pedal edema NARRATIVE EXTREMITY EXAM: Bilateral lower extremity redness and tenderness present. Neuro: COMMON NORMALS: patient oriented x3 Urinary Catheter Management: Hernandez: Cath Placed During This Visit: yes Reason for Continuing Indwelling Catheter: Accurate Measurement of Urinary Output in Critically Ill Patients Urinary Catheter Date of Insertion: 07/21/22 Urinary Catheter Time of Insertion: 08:49 Data 07/24/22 02:40 07/24/22 02:40 Micro: Microbiology 07/22/22 14:00 Blood Culture - Preliminary Blood NEGATIVE TO DATE 07/22/22 14:15 Blood Culture - Preliminary Blood NEGATIVE TO DATE A&P Assessment and plan (1) Bradycardia: Patient noted to have bradycardia, baseline rhythm appears to be slow A-fib, heart rate ranging between 30 to 40 bpm. Blood pressure is currently maintained between 1 30-1 40 systolic. Holding metoprolol, patient takes 125 mics as outpatient. Continue telemetry monitoring (2) NSTEMI (non-ST elevated myocardial infarction): Baseline troponin elevated at 172, trending down at 2 hours to 168, trended won at 6 hrs Denies any current chest pain echo without RWMA, EF 60%., gr 1 diastolic dysfunction Troponin elevation maybe related to CKD Cardiology consult appreciated Was on heparin drip has been discontinued. (3) Hypotension: CT chest without contrast no consolidation seen. CT abdomen and pelvis: No acute abdominal or pelvic pathology seen. Abdominal ultrasound: Blood culture:NTD UA: Negative Lactic acid Procalcitonin Currently on Levophed Random cortisol:22 May be related to bradycardia when BP dropped to 76 systolic. Currently on Levophed (4) Hypoglycemia: unclear etiology patient is not diabetic Not on any inuslin or other OHas has remote h/o bariatric surgery Cortisol random, TSH normal Check insulin level, C peptide, CT abdomen for insulinomas or adrenal masses (5) Acute on chronic kidney failure: Per family baseline creatinine appears to be about 3.5. Last creatinine in our system from July 05, 2022 at 3.3 Creatinine today at 4.2, down from 4.7. Urine output 900 cc May be related to hypotension Currently on d20 @ 25 cc/hr Renal artery Doppler to assess patency of stent Discussed with family that ideally would prefer to do a CTA, however due to concern for potential RUSSELL and need to be started on hemodialysis holding off for now while pending serial creatinine checks. Check CT abdomen/pelvis for any obstrcutive process (6) History of abdominal aortic aneurysm (AAA) repair: Requested records from [place] (7) Atrial fibrillation: Not on anticoagulation as outpatient (8) History of renal stent: (9) Thrombocytopenia: Thrombocytopenia: Likely secondary to DIC Admission platelet count:102 Current platelet count is 75,000 Peripheral blood smear reviewed: DIC panel: Results appreciated 4T Score Currently patient has no significant bleeding. Monitor platelet count for now (10) DIC (disseminated intravascular coagulation): Elevated PT,aPTT, elevated INR, low serum fibrinogen, Conservative management,with treatment of underlying cause. (11) Total bilirubin, elevated: Follow limited ultrasound abdomen. Monitor CMP for now (12) Cellulitis: Bilateral lower extremity cellulitis: Currently appropriately covered with broad-spectrum antibiotic. Plan DVT prophylaxis: On SCDS Protonix for PUD prophylaxis Full code, discussed with patient Attestations Medical Necessity Statement*: Needs to be in hospital for IV antibiotics. Coding Level of Care Code Acute Code for Chg Fwd Diagnoses Bradycardia R00.1 NSTEMI (non-ST elevated myocardial infarction) I21.4 Hypotension I95.9 Hypoglycemia E16.2 Acute on chronic kidney failure N17.9; N18.9 History of abdominal aortic aneurysm (AAA) repair Z98.890 Atrial fibrillation I48.91 History of renal stent Thrombocytopenia D69.6 DIC (disseminated intravascular coagulation) D65 Total bilirubin, elevated R17 Cellulitis L03.90
--- NOTE | 2022-07-24 12:42 | US_ITS ---
WS: [id number] ULTRASOUND ABDOMEN LIMITED CLINICAL INFORMATION: elevated total bilirubin COMPARISON: CT July 22, 2022 FINDINGS: Liver Size: Mild hepatomegaly Craniocaudal length: 16.1 cm. Echogenicity: Normal. Surface nodularity: None. Mass (size and location): None. Bile ducts Intrahepatic ducts: Normal. Common bile duct diameter: 1.4 cm. Gallbladder Cholecystectomy. Pancreas Normal as visualized. Right kidney: Atrophic RIGHT kidney Hydronephrosis: None. Size: 11.0 cm x 3.8 cm x 3.9 cm. 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 Aneurysm sac measures up to 6.5 cm AP on the recent CT. Ascites: None. US/US abdomen limited [id number] IMPRESSION: 1. Cholecystectomy. 2. Common bile duct dilatation measuring 14 mm. MRCP has been scheduled. 3. Atrophic RIGHT kidney. No hydronephrosis. 4. Mild hepatomegaly.
--- NOTE | 2022-07-24 15:20 | PC.SOCIAL ---
Pg 2 IMM Explained to pt & family Pg 2 IMM. No questions voiced. Provided pt a copy. Initialed, dated, & timed a copy & placed in chart.
[2022-07-24 20:17] LABS: Glucose Point of Care 120 mg/dL (70-110)
[2022-07-24] MEDS: atorvastatin 40 mg Tablet PO (20:57)
[2022-07-25] VITALS (34 sets, daily range): BP systolic 88–140; BP diastolic 38–63; PULSE 62–103; RESP 11–26; TEMP 36.6–36.8; O2SAT 90–99
[2022-07-25 03:36] LABS: Basophils % 0.4 %; Eosinophils # 0.1 10^3/uL (0.0-0.8); Eosinophils % 1.3 %; Hemoglobin 8.5 g/dL (11.5-15.3); Lymphocytes # 0.5 10^3/uL (0.8-4.8); Lymphocytes % 6.6 %; Mean Corpuscular HGB Conc 32.7 g/dL (30.0-36.0); Mean Corpuscular Hemoglobin 32.8 pg (28.0-34.0); Mean Corpuscular Volume 100.4 fl (81-99); Monocytes # 0.9 10^3/uL (0.2-0.9); Neutrophils # 6.39 10^3/uL (1.8-7.7); Neutrophils % 80.2 %; Nucleated Red Blood Cells % 0 %; Platelet Count 67 10^3/cmm (130-400); Red Blood Count 2.59 10^6/uL (4.1-5.3); Red Cell Distribution Width 14.6 % (12.1-15.1)
[2022-07-25 03:52] LABS: Alanine Aminotransferase 18 U/L (0-33); Albumin Level 3.2 g/dL (3.5-5.2); Alkaline Phosphatase 84 U/L (35-105); Anion Gap 19.8 (5-19); Aspartate Amino Transferase 179 U/L (0-32); Calcium 7.4 mg/dL (8.5-10.5); Carbon Dioxide 22 mmol/L (22-29); Chloride 94 mmol/L (98-107); Globulin 1.5 g/dL (1.3-4.6); Glucose 95 mg/dL (65-115); INR 2.14 (0.8-1.2); Osmolality Calculated 300 mOsm/kg (285-295); Potassium 3.8 mmol/L (3.5-5.1); Sodium 132 mmol/L (136-145); Total Bilirubin 3.9 mg/dL (0.15-1.2); Total Protein 4.7 g/dL (6.6-8.7)
[2022-07-25 03:54] LABS: Partial Thromboplastin Time 64.3 SECONDS (23.9-36.7)
[2022-07-25 04:00] LABS: Lactate (Lactic Acid level) 1.7 mmol/L (0.5-2.2)
[2022-07-25 04:03] LABS: Blood Urea Nitrogen 87 mg/dL (8-23)
[2022-07-25 04:04] LABS: D Dimer 5.49 ug/mIFEU (0-0.59)
[2022-07-25 04:15] LABS: Fibrinogen 55 mg/dL (174-498)
[2022-07-25] MEDS: albumin 25 G/100 ML BAG 60 G IV (04:18)
[2022-07-25 05:17] LABS: Lactate Dehydrogenase 257 U/L (135-214)
--- NOTE | 2022-07-25 05:19 | PC.NURSE ---
Patient did very well throughout the night. Complained of some pain and nausea and the beginning of this shift. Patient refused nausea and pain medication. Patient also refused Q2H turns with pillows placed but will accept the bed tilt with side rails raised. Patients backside has no redness or open areas.
[2022-07-25 05:20] LABS: Glucose Point of Care 103 mg/dL (70-110)
[2022-07-25 05:20] LABS: Glucose Point of Care 24 mg/dL (70-110)
[2022-07-25 05:20] LABS: Glucose Point of Care 559 mg/dL (70-110)
--- NOTE | 2022-07-25 06:45 | P.PN_ITS ---
Subjective Subjective: Meghana has had a fairly quiet day and night. Her heart rate has come up nicely. She is now in a sinus rhythm at a rate of 85. She has had 1 L of urine output overnight. Her hemoglobin is stable at 8.5. Her creatinine is stable at 3.7 with a BUN of 87. Her AST is 179 and is unchanged. Potassium is 3.8. She remains on norepinephrine at 2 mcg/min and continues to require D20 via the central line. She is awake and arousable. She does not complain of any pain. Vitals/I&O/Wt Last Vital Signs Temp 98.3 F 07/25/22 00:00 Pulse 86 07/25/22 06:00 Resp 12 07/25/22 06:00 BP 103/46 07/25/22 06:00 Pulse Ox 94 07/25/22 06:00 O2 Del Method Nasal Cannula 07/24/22 20:00 O2 Flow Rate 2 07/25/22 06:00 07/24/22 07/24/22 07/25/22 14:59 22:59 06:59 Intake Total 459.167 / 187.008 8581.890 / 1737.057 217.056 / 1954.113 Output Total 1000 / 1000 Balance 459.167 / 862.166 4759.890 / 1737.057 -782.944 / 954.113 Weight last 48 hrs Weight 207 lb Weight 213 lb 12.8 oz Physical Exam Narrative: GENERAL: In general she is comfortable in bed HEENT: Exam within normal limits. NECK: Supple without jugular vein distention. The carotid upstroke is normal without bruits. BACK: Exam normal. LUNGS: Clear. HEART: Regular rate and rhythm. ABDOMEN: Benign without organomegaly or tenderness. EXTREMITIES: No edema. NEUROLOGIC: Exam normal. SKIN: Unremarkable. Urinary Catheter Management: Hernandez: Cath Placed During This Visit: yes Reason for Continuing Indwelling Catheter: Accurate Measurement of Urinary Output in Critically Ill Patients Urinary Catheter Date of Insertion: 07/21/22 Urinary Catheter Time of Insertion: 08:49 Data 07/25/22 02:45 07/25/22 02:45 A&P Assessment and plan (1) Total bilirubin, elevated: (2) DIC (disseminated intravascular coagulation): (3) Thrombocytopenia: (4) NSTEMI (non-ST elevated myocardial infarction): (5) History of abdominal aortic aneurysm (AAA) repair: (6) History of bariatric surgery: (7) Macrocytic anemia: (8) Transaminitis: (9) Left bundle branch block: (10) Acute on chronic kidney failure: (11) History of renal stent: (12) AAA (abdominal aortic aneurysm): (13) JESSICA on CPAP: (14) PVD (peripheral vascular disease): Plan Continue current care. No changes. Yesterday I had an extended and lengthy discussion with the patient's family which included a daughter and I believe the [id number] and perhaps a son-in-law. Attestations Medical Necessity Statement*: Requires continued ICU care for management of sepsis, DIC, acute renal failure, troponin elevation. and High Time for a total of 50 minutes, includes reviewing past or interval history, exa mining/interviewing patient, placing orders, counseling patient/family/other support, updating patient/family/other support, discussing plan of care with staff, communicating with other healthcare providers, documenting encounter and coordinating care Diagnoses Total bilirubin, elevated R17 DIC (disseminated intravascular coagulation) D65 Thrombocytopenia D69.6 NSTEMI (non-ST elevated myocardial infarction) I21.4 History of abdominal aortic aneurysm (AAA) repair Z98.890 History of bariatric surgery Z98.84 Macrocytic anemia D53.9 Transaminitis R74.01 Left bundle branch block I44.7 Acute on chronic kidney failure N17.9; N18.9 History of renal stent AAA (abdominal aortic aneurysm) I71.40 JESSICA on CPAP G47.33; Z99.89 PVD (peripheral vascular disease) I73.9
--- NOTE | 2022-07-25 07:54 | MR_ITS ---
WS: [id number] MRCP (MAGNETIC RESONANCE CHOLANGIOPANCREATOGRAPHY) HISTORY: hyperbilirubinemia COMPARISON: Prior abdomen ultrasound 07/24/2022 TECHNIQUE: Multiple sequences are performed to evaluate the intra and extrahepatic ducts. This study is significantly compromised by breathing motion artifact and body habitus. Patient was un able to hold her breath for this examination. Common bile duct evaluation is limited but probably adequate. Common bile duct measures 11 mm in diam eter and tapers normally towards the ampulla of Vater. No intraluminal filling defects are identified . No central hepatic bile duct dilatation. The pancreatic head and the liver are very poorly visualized due to extensive motion artifact. Marked atrophy of the RIGHT kidney. Normal appearance of the LEFT kidney. Status post endovascular graft re pair of the abdominal aortic aneurysm. Small LEFT pleural effusion. Cardiomegaly. By history status post gastric sleeve. MR/MR MRCP [id number] IMPRESSION: 1. Extremely limited evaluation of the abdominal structures due to multiple fa ctors. 2. Common bile duct measures 11 mm but no filling defects are identified. Norm al tapering to the ampulla of Vater. May be normal physiologic dilatation relat ed to aging and post cholecystectomy. 3. Pancreas and the pancreatic head are poorly visualized. Patient is status p ost prior cholecystectomy as per history.
[2022-07-25 09:45] LABS: Glucose Point of Care 95 mg/dL (70-110)
--- NOTE | 2022-07-25 10:20 | PC.NURSE ---
Pt to MRI via be with oxygen,
[2022-07-25] MEDS: ondansetron 2 mg/ML SDV 2 mL 4 MG IVP (11:39)
[2022-07-25] MEDS: pantoprazole DR 40 mg Tablet PO (11:39)
[2022-07-25] MEDS: piperacillin-tazobactam 3.375 GM in sodium chloride 0.9% (plus) 50 ML IV ×2 (11:39→22:03)
[2022-07-25 11:57] LABS: Glucose Point of Care 113 mg/dL (70-110)
[2022-07-25] MEDS: albumin 25 G/100 ML VIAL IV ×2 (12:21→19:57)
[2022-07-25] MEDS: acetaminophen 325 mg Tablet 650 MG PO (12:25)
[2022-07-25] MEDS: dexamethasone 4 mg/mL INJ IVP ×2 (14:12→22:03)
--- NOTE | 2022-07-25 15:36 | P.PN_ITS ---
Subjective Subjective: Patient was seen and examined this morning, she was much more alert and awake today, platelet count has slightly improved as compared to yesterday, unfortunately her total bilirubin is going up, AST has also slightly trended up, ALP is normal, patient LDH is also high, and haptoglobin is low, pointing towards possible hemolytic anemia, will follow with a.m. total direct as well as indirect bilirubin. Medications: Reviewed: Yes Medication Review Details: Generic Name Dose Route Start Last Admin Trade Name Markq PRN Reason Stop Dose Admin Acetaminophen 650 mg 07/21/22 13:02 07/25/22 12:25 Acetaminophen 32 5 Mg Tablet PO 650 mg Q6H PRN Administration MILD PAIN Aspirin 81 mg 07/21/22 13:10 07/23/22 08:49 Aspirin 81 Mg Ec Tablet PO 81 mg DAILY JOSE Administration Atorvastatin Calci um 40 mg 07/21/22 21:00 07/24/22 20:57 Atorvastatin 40 Mg Tablet PO 40 mg BEDTIME JOSE Administration Dexamethasone 4 mg 07/25/22 15:00 07/25/22 14:12 Dexamethasone 4 Mg/Ml Inj IVP 4 mg TID JOSE Administration Enoxaparin Sodium 40 mg 07/23/22 08:30 07/23/22 08:49 Enoxaparin 40 Mg /0.4 Ml Syringe SUBCUT 40 mg Q24H JOSE Administration Dextrose 35.5 ml/ Sterile 50 mls @ 600 mls/ hr 07/22/22 01:25 07/22/22 04:16 Water 14.5 ml/ N /A IVP Infused PRN PRN Infusion HYPOGLYCEMIA Piperacillin Sod/T azobactam 50 mls @ 12.5 mls /hr 07/22/22 11:00 07/25/22 11:39 Sod 3.375 gm/ So dium Chloride IV 12.5 mls/hr Q12H JOSE Administration Protocol Norepinephrine Bit artrate 4 mg 254 mls @ 0 mls/h r 07/22/22 11:45 07/25/22 09:15 / Dextrose IV 0 mcg/min .Q0M JOSE 0 mls/hr Titration Protocol Per Protocol Vancomycin HCl 1,0 00 mg/ 250 mls @ 250 mls /hr 07/24/22 13:00 07/24/22 19:48 Sodium Chloride IV Infused Q48H JOSE Infusion Protocol Dextrose 500 mls @ 25 mls/ hr 07/22/22 17:00 07/25/22 11:10 D20w IV 2 mls/hr .Q20H JOSE Infusion Albumin Human 25 g in 100 mls @ 60 mls/hr 07/25/22 11:45 07/25/22 14:31 Albumin IV Infused Q8H JOSE Infusion Ondansetron HCl 4 mg 07/21/22 09:41 07/25/22 11:39 Ondansetron 2 Mg /Ml Sdv 2 Ml IVP 4 mg Q6H PRN Administration NAUSEA AND VOMITI NG Pantoprazole Sodiu m 40 mg 07/22/22 09:00 07/25/22 11:[address] 40 Mg Tablet PO 40 mg DAILY JOSE Administration Vitals/I&O/Wt Last Vital Signs Temp 98.3 F 07/25/22 00:00 Pulse 90 07/25/22 10:00 Resp 15 07/25/22 10:00 BP 112/52 07/25/22 10:00 Pulse Ox 95 07/25/22 10:00 O2 Del Method Nasal Cannula 07/25/22 10:00 O2 Flow Rate 2 07/25/22 10:00 07/25/22 07/25/22 07/25/22 06:59 14:59 22:59 Intake Total 217.056 / 1954.113 573.224 / 573.224 Output Total 1000 / 1000 Balance -782.944 / 954.113 573.224 / 573.224 Weight last 48 hrs Weight 93.894 kg Weight 96.978 kg Physical Exam Const: COMMON NORMALS: patient oriented x3 HENMT: COMMON NORMALS: normocephalic and atraumatic HEAD & SCALP: normocephalic and atraumatic Resp: COMMON NORMALS: clear to auscultation bilaterally AUSCULTATION: clear to auscultation bilaterally Cardio: COMMON NORMALS: regular rate, regular rhythm, S1 normal heart sound present, S2 normal heart sound present, No gallops present (Cardio), No murmurs present (Cardio), No rub (Cardio) and Peripheral pulses 2+ throughout RATE: regular rate RHYTHM: regular rhythm HEART SOUNDS: S1 normal heart sound present and S2 normal heart sound present PERIPHERAL PULSES: Peripheral pulses 2+ throughout GI: COMMON NORMALS: Normal to inspection, nondistended, normoactive bowel sounds present, Soft to palpation, non-tender, No hepatosplenomegaly present and no masses AUSCULTATION: Yes normoactive bowel sounds PALPATION: Yes Soft to palpation and Yes No hepatosplenomegaly present RECTAL EXAM: deferred Extremity: COMMON NORMALS: no clubbing, cyanosis or edema and no pedal edema NARRATIVE EXTREMITY EXAM: Bilateral lower extremity redness and tenderness present. Neuro: COMMON NORMALS: patient oriented x3 Urinary Catheter Management: Hernandez: Cath Placed During This Visit: yes Reason for Continuing Indwelling Catheter: Accurate Measurement of Urinary Output in Critically Ill Patients Urinary Catheter Date of Insertion: 07/21/22 Urinary Catheter Time of Insertion: 08:49 Data 07/25/22 02:45 07/25/22 02:45 A&P Assessment and plan (1) Bradycardia: Patient noted to have bradycardia, baseline rhythm appears to be slow A-fib, heart rate ranging between 30 to 40 bpm. Blood pressure is currently maintained between 1 30-1 40 systolic. Holding metoprolol, patient takes 125 mics as outpatient. Continue telemetry monitoring (2) NSTEMI (non-ST elevated myocardial infarction): Baseline troponin elevated at 172, trending down at 2 hours to 168, trended won at 6 hrs Denies any current chest pain echo without RWMA, EF 60%., gr 1 diastolic dysfunction Troponin elevation maybe related to CKD Cardiology consult appreciated Was on heparin drip has been discontinued. (3) Hypotension: CT chest without contrast no consolidation seen. CT abdomen and pelvis: No acute abdominal or pelvic pathology seen. Abdominal ultrasound: Blood culture:NTD UA: Negative Lactic acid: Normal Procalcitonin:Nomal. Currently on Levophed Random cortisol:22 May be related to bradycardia when BP dropped to 76 systolic. Currently on Levophed (4) Hypoglycemia: unclear etiology patient is not diabetic Not on any inuslin or other OHas has remote h/o bariatric surgery Cortisol random, TSH normal Check insulin level, C peptide, CT abdomen for insulinomas or adrenal masses (5) Acute on chronic kidney failure: Per family baseline creatinine appears to be about 3.5. Last creatinine in our system from July 05, 2022 at 3.3 Creatinine today at 4.2, down from 4.7. Urine output 900 cc May be related to hypotension Currently on d20 @ 25 cc/hr Renal artery Doppler to assess patency of stent Discussed with family that ideally would prefer to do a CTA, however due to concern for potential RUSSELL and need to be started on hemodialysis holding off for now while pending serial creatinine checks. Check CT abdomen/pelvis for any obstrcutive process (6) History of abdominal aortic aneurysm (AAA) repair: Requested records from [place] (7) Atrial fibrillation: Not on anticoagulation as outpatient (8) History of renal stent: (9) Thrombocytopenia: Thrombocytopenia: Likely secondary to DIC Admission platelet count:102 Current platelet count is 75,000 Peripheral blood smear reviewed: DIC panel: Results appreciated 4T Score : HIT : Plasmic score for TTP Currently patient has no significant bleeding. Monitor platelet count for now (10) DIC (disseminated intravascular coagulation): Elevated PT,aPTT, elevated INR, low serum fibrinogen, high D-dimer. Low fibrinogen level is unlikely related to hypofibrinogenemia. Conservative management,with treatment of underlying cause. (11) Total bilirubin, elevated: Follow limited ultrasound abdomen.Cholecystectomy.Common bile duct dilatation measuring 14 mm. MRCP: Common bile duct measures 11 mm but no filling defects are identified.Normal tapering to the ampulla of Vater. May be normal physiologic dilatation related to aging and post cholecystectomy. Monitor CMP for now. Follow a.m. total bilirubin as well as direct bilirubin. (12) Cellulitis: Bilateral lower extremity cellulitis: Currently appropriately covered with broad-spectrum antibiotic. (13) Sepsis: Patient likely has sepsis secondary to cellulitis: And possibly sepsis is giving rise to DIC: Patient currently meets sepsis criteria as she was hypotensive, also had hypothermia, initially hypotension was attributed to bradycardia, but patient continued to required Levophed even after, improvement in her heart rate, at one-point even with her improving heart rate Levophed requirement went up, requiring the need for bolus IV fluid, albumin to help with blood pressure, and continued IV antibiotic.Though her cultures have remained negative, imaging studies for most part has been unremarkable.Lactic acid:1.7, procalcitonin:0.70. Hypoglycemia could be explained be explained with sepsis. Current plan is to c ontinue with IV antibiotics and de-escalate accordingly with clinical improvement.Patient likely developed sepsis during hospital stay. Plan DVT prophylaxis: On SCDS Protonix for PUD prophylaxis Full code, discussed with patient Attestations Medical Necessity Statement*: Needs to be in hospital for IV antibiotics, monitoring for platelet count. Coding Level of Care Code Acute Code for Chg Fwd Diagnoses Bradycardia R00.1 NSTEMI (non-ST elevated myocardial infarction) I21.4 Hypotension I95.9 Hypoglycemia E16.2 Acute on chronic kidney failure N17.9; N18.9 History of abdominal aortic aneurysm (AAA) repair Z98.890 Atrial fibrillation I48.91 History of renal stent Thrombocytopenia D69.6 DIC (disseminated intravascular coagulation) D65 Total bilirubin, elevated R17 Cellulitis L03.90 Sepsis A41.9
[2022-07-25 17:36] LABS: Glucose Point of Care 134 mg/dL (70-110)
--- NOTE | 2022-07-25 18:47 | PC.NURSE ---
SHift summary: Pt is more more interactive today versus Saturday. Her voice is stronger. She even initiated a conversation, she smiled and laughed today. His skim still has multiple bruises and the skin tears from the pre-admit fall. She does have some general edema upper extremities. Bilat lower extremities still have cellulitis but have improved. Pt has refused to reposition multiple times toay but she was cooperative with more repositioning than she was Saturday. Her skin on her bottom is intact. Levophed gtt stopped this am and has stayed off per her BP. She still has D 20% infusing at 25ml/hr. Blood sugars have been greater than 95mg/dl all shift. Her urine output is consistent at 700ml this shift. Pt did complain of nausea twice this am, she did agree to have Zofran admin after the MRI. No emesis noted. No Bm noted today. Pt did agree to acetaminophen once today for pain, after she informed Physical Therapy that she hurt. THe pain med did provide some relief per her. She refused to get out of bed today.
[2022-07-25 19:56] LABS: Glucose Point of Care 148 mg/dL (70-110)
[2022-07-25] MEDS: atorvastatin 40 mg Tablet PO (22:03)
--- NOTE | 2022-07-25 23:13 | PC.NURSE ---
Patient received bed bath tonight. More awake and alert than previously in the shift. Upon assessment of backside patient does have redness and breakdown of back side and pressure injury to left heel. Patient agreed to be repositioned with a pillow placed under her side to reduce pressure. Patient also has heel floaters on with a pillow placed underneath legs.
[2022-07-26] VITALS (40 sets, daily range): BP systolic 104–137; BP diastolic 45–87; PULSE 72–101; RESP 12–24; TEMP 36.7–36.8; O2SAT 88–99
[2022-07-26 01:00] LABS: Glucose Point of Care 152 mg/dL (70-110)
[2022-07-26] MEDS: albumin 25 G/100 ML VIAL IV ×3 (03:34→20:24)
[2022-07-26 04:07] LABS: Basophils % 0.2 %; Hematocrit 24.2 % (37.0-47.0); Lymphocytes # 0.3 10^3/uL (0.8-4.8); Lymphocytes % 6.3 %; Mean Corpuscular HGB Conc 33.1 g/dL (30.0-36.0); Mean Corpuscular Hemoglobin 33.3 pg (28.0-34.0); Mean Corpuscular Volume 100.8 fl (81-99); Mean Platelet Volume 14.8 fL (7.4-10.4); Monocytes # 0.2 10^3/uL (0.2-0.9); Monocytes % 4.3 %; Neutrophils # 4.36 10^3/uL (1.8-7.7); Neutrophils % 88.8 %; Nucleated Red Blood Cells % 0 %; Platelet Count 61 10^3/cmm (130-400); Red Cell Distribution Width 14.6 % (12.1-15.1); White Blood Count 4.9 10^3/uL (4.0-10.0)
[2022-07-26 04:22] LABS: INR 2.15 (0.8-1.2)
[2022-07-26 04:25] LABS: Glucose Point of Care 130 mg/dL (70-110)
[2022-07-26 04:29] LABS: Partial Thromboplastin Time 69.5 SECONDS (23.9-36.7)
[2022-07-26 04:33] LABS: Alanine Aminotransferase 22 U/L (0-33); Albumin Level 3.6 g/dL (3.5-5.2); Alkaline Phosphatase 90 U/L (35-105); Anion Gap 19.3 (5-19); Aspartate Amino Transferase 170 U/L (0-32); Blood Urea Nitrogen 80 mg/dL (8-23); Calcium 7.4 mg/dL (8.5-10.5); Carbon Dioxide 22 mmol/L (22-29); Chloride 94 mmol/L (98-107); Globulin 1.1 g/dL (1.3-4.6); Glucose 129 mg/dL (65-115); Osmolality Calculated 298 mOsm/kg (285-295); Potassium 4.3 mmol/L (3.5-5.1); Sodium 131 mmol/L (136-145); Total Bilirubin 4.5 mg/dL (0.15-1.2); Total Protein 4.7 g/dL (6.6-8.7)
[2022-07-26 04:42] LABS: Fibrinogen 47 mg/dL (174-498)
[2022-07-26 04:53] LABS: Total Bilirubin 4.5 mg/dL (0.15-1.2)
[2022-07-26 05:09] LABS: Slide Review Slide Review Perform
[2022-07-26 05:17] LABS: Lactate Dehydrogenase 250 U/L (135-214)
[2022-07-26] MEDS: dexamethasone 4 mg/mL INJ IVP ×3 (07:59→20:26)
[2022-07-26] MEDS: pantoprazole DR 40 mg Tablet PO (08:00)
--- NOTE | 2022-07-26 08:42 | P.PN_ITS ---
Subjective Subjective: Meghana continues to very slowly improve. She is much more awake and alert today. She has an appetite and is beginning to eat. She had an ultrasound of her abdomen which shows the atrophic right kidney. An MRCP was suggested and was done. It did not reveal anything abnormal. Her platelet count is 61,000 down slightly from 67,000. Her hemoglobin is 8 down slightly from 8.5. Her INR is 2.15 which is unchanged. BUN and creatinine are 80 and 3.4 respectively which are slightly improved from yesterday. Her glucose is 129. Her bilirubin is 4.5 and her AST 170 down from 179. She has made 1500 mL of urine output. She feels better. She hurts all over. She is not particularly fond of the physical therapy. Vitals/I&O/Wt Last Vital Signs Temp 98.2 F 07/26/22 04:00 Pulse 82 07/26/22 08:00 Resp 17 07/26/22 08:00 BP 109/50 07/26/22 08:00 Pulse Ox 99 07/26/22 08:00 O2 Del Method Nasal Cannula 07/25/22 20:00 O2 Flow Rate 2 07/25/22 20:00 07/25/22 07/26/22 07/26/22 22:59 06:59 14:59 Intake Total 420 / 993.224 277.967 / 1271.191 Output Total 700 / 700 800 / 1500 Balance -280 / 293.224 -522.033 / -228.809 Weight last 48 hrs Weight 211 lb Weight 207 lb Physical Exam Narrative: GENERAL: In general she looks much improved this morning and is alert and talkative HEENT: Exam within normal limits. NECK: Supple without jugular vein distention. The carotid upstroke is normal without bruits. BACK: Exam normal. LUNGS: Clear. HEART: Regular rate and rhythm. ABDOMEN: Benign without organomegaly or tenderness. EXTREMITIES: No edema. NEUROLOGIC: Exam normal. SKIN: Multiple bruises and excoriations. Urinary Catheter Management: Hernandez: Cath Placed During This Visit: yes Reason for Continuing Indwelling Catheter: Accurate Measurement of Urinary Output in Critically Ill Patients Urinary Catheter Date of Insertion: 07/21/22 Urinary Catheter Time of Insertion: 08:49 Data 07/26/22 03:13 07/26/22 03:13 A&P Assessment and plan (1) Sepsis: (2) Cellulitis: (3) Total bilirubin, elevated: (4) DIC (disseminated intravascular coagulation): (5) Thrombocytopenia: (6) Hypotension: (7) Hypoglycemia: (8) NSTEMI (non-ST elevated myocardial infarction): (9) History of abdominal aortic aneurysm (AAA) repair: (10) History of bariatric surgery: (11) Macrocytic anemia: (12) Transaminitis: (13) Left bundle branch block: (14) Acute on chronic kidney failure: (15) History of renal stent: (16) AAA (abdominal aortic aneurysm): (17) JESSICA on CPAP: (18) CKD (chronic kidney disease) stage 3, GFR 30-59 ml/min: (19) PVD (peripheral vascular disease): (20) Parkinson disease: (21) Essential hypertension: (22) Hyperlipidemia, mixed: (23) COPD (chronic obstructive pulmonary disease): (24) Atrophy of right kidney: (25) Hepatic insufficiency: Plan She is very slowly improving. I had a long talk with her and her daughter. Her daughter is going back to [place] today. The patient still has a ways to go but is significantly improved from the other day. No change currently Attestations Medical Necessity Statement*: Continued ICU care required for multiple medical problems. and High Time for a total of 60 minutes, includes reviewing past or interval history, examining/interviewing patient, placing orders, counseling patient/family/other support, updating patient/family/other support, discussing plan of care with staff, communicating with other healthcare providers, documenting encounter and coordinating care Diagnoses Sepsis A41.9 Cellulitis L03.90 Total bilirubin, elevated R17 DIC (disseminated intravascular coagulation) D65 Thrombocytopenia D69.6 Hypotension I95.9 Hypoglycemia E16.2 NSTEMI (non-ST elevated myocardial infarction) I21.4 History of abdominal aortic aneurysm (AAA) repair Z98.890 History of bariatric surgery Z98.84 Macrocytic anemia D53.9 Transaminitis R74.01 Left bundle branch block I44.7 Acute on chronic kidney failure N17.9; N18.9 History of renal stent AAA (abdominal aortic aneurysm) I71.40 JESSICA on CPAP G47.33; Z99.89 CKD (chronic kidney disease) stage 3, GFR 30-59 ml/min N18.30 PVD (peripheral vascular disease) I73.9 Parkinson disease G20 Essential hypertension I10 Hyperlipidemia, mixed E78.2 COPD (chronic obstructive pulmonary disease) J44.9 Atrophy of right kidney N26.1 Hepatic insufficiency K72.90
[2022-07-26] MEDS: piperacillin-tazobactam 3.375 GM in sodium chloride 0.9% (plus) 50 ML IV ×2 (10:56→23:38)
[2022-07-26 11:03] LABS: Glucose Point of Care 128 mg/dL (70-110)
[2022-07-26 13:51] LABS: Vancomycin Trough 11.9 ug/mL (10-15)
[2022-07-26 14:50] LABS: Glucose Point of Care 154 mg/dL (70-110)
[2022-07-26] MEDS: vancomycin 1,000 MG in sodium chloride 0.9% 250 ML 250 MG IV (15:13)
--- NOTE | 2022-07-26 15:20 | PM.CONSULT ---
Providers/Reason For Consult Consulting Physician/Specialty*: Dr. John Serrano, DO/General surgery Reason for Consult*: Hyperbilirubinemia Attending Physician: Dennys Gr MD Primary Care Provider: IRMA Cabral History of Present Illness History of Present Illness Meghana Wong is a 81 year old female who presented to the hospital anterior DIC but is not bleeding. Her bilirubin continues to climb. This is mostly direct. She is status postcholecystectomy. MRCP was performed and shows an 11 mm common bile duct without any filling defect. She does report some right upper quadrant abdominal pain Review of Systems General: Reports: 10 or more systems reviewed and unremarkable except in HPI and below Medications/Allergies Home Medications Medication Instructions Recorded Confirmed Last Taken Type CPAP supplies #1 ea 07/04/22 07/21/22 Unknown Rx Wheelchair to fit #1 ea 07/04/22 07/21/22 Unknown Rx acetaminophen 650 mg 650 mg PO Q6H PRN Pain 07/04/22 07/21/22 Unknown History tablet,extended release albuterol 90 mcg/actuation aerosol 90 mcg inhalation Q6H PRN 07/04/22 07/21/22 Unknown History inhaler Shortness Of Breath albuterol sulfate 2.5 mg/3 mL 2.5 mg (3 mL) inhalation TID PRN 07/04/22 07/21/22 Unknown Rx (0.083 %) solution for nebulization shortness of breath or wheezing #180 mL aripiprazole 15 mg tablet 15 mg PO DAILY #30 tabs 07/04/22 07/21/22 07/20/22 Rx aspirin 81 mg tablet,delayed 81 mg PO DAILY #1 tab 07/04/22 07/21/22 07/20/22 Rx release (Adult Low Dose Aspirin) atorvastatin 40 mg tablet 40 mg PO DAILY #30 tabs 07/04/22 07/21/22 07/20/22 Rx carbidopa 25 mg-levodopa 250 mg 1 tab PO QID #120 tabs 07/04/22 07/21/22 07/20/22 Rx tablet desvenlafaxine succinate 25 mg 25 mg PO DAILY #30 tabs 07/04/22 07/21/22 07/20/22 Rx tablet,extended release 24 hr dextromethorphan-guaifenesin 30 1 tab PO Q12H #60 tabs 07/04/22 07/21/22 07/20/22 Rx mg-600 mg tablet extended [id number] hr (Mucinex DM) fenofibrate 160 mg tablet 160 mg PO DAILY #30 tabs 07/04/22 07/21/22 07/20/22 Rx fluticasone fur. 100 mcg-umeclid 1 inh inhalation Q24H #60 ea 07/04/22 07/21/22 Unknown Rx 62.5 mcg-vilant 25 mcg inhalat.powder (Trelegy Ellipta) furosemide 40 mg tablet 80 mg PO DAILY #60 tabs 07/04/22 07/21/22 07/20/22 Rx lansoprazole 30 mg capsule,delayed 30 mg PO DAILY #30 caps 07/04/22 07/21/22 07/20/22 Rx release losartan 50 mg tablet 50 mg PO DAILY #30 tabs 07/04/22 07/21/22 07/20/22 Rx metolazone 5 mg tablet See Rx Instructions .Route .COMPLEX 07/04/22 07/21/22 07/20/22 History nebulizers #1 ea 07/04/22 07/21/22 Unknown Rx oxycodone-acetaminophen 5 mg-325 1 tab PO Q8H PRN Pain 07/04/22 07/21/22 Unknown History mg tablet diphenoxylate-atropine 2.5 1 tab PO TID #90 tabs 07/05/22 07/21/22 07/20/22 Rx mg-0.025 mg tablet (Lomotil) silver sulfadiazine 1 % topical 1 applic topical DAILY #400 grams 07/05/22 07/21/22 07/20/22 Rx cream (Silvadene) cholecalciferol (vitamin D3) 125 125 mcg PO DAILY #30 caps 07/06/22 07/21/22 07/20/22 Rx mcg (5,000 unit) capsule doxycycline hyclate 100 mg capsule 100 mg PO BID #20 caps 07/06/22 07/21/22 07/20/22 Rx (Vibramycin) metoprolol succinate 100 mg 100 mg PO BEDTIME 07/21/22 07/21/22 07/20/22 History tablet,extended release 24 hr metoprolol succinate 25 mg 25 mg PO BEDTIME 07/21/22 07/21/22 07/20/22 History tablet,extended release 24 hr potassium chloride 20 mEq 20 meq PO DAILY 07/21/22 07/21/22 07/20/22 History tablet,extended release Allergies Allergy/AdvReac Type Severity Reaction Status Date / Time codeine Allergy Unknown Verified 07/04/22 14:56 Current Medications Generic Name Dose Route Start Last Admin Trade Name Freq PRN Reason Stop Dose Admin Acetaminophen 650 mg 07/21/22 13:02 07/25/22 12:25 Acetaminophen 325 Mg Tablet PO 650 mg Q6H PRN Administration MILD PAIN Aspirin 81 mg 07/21/22 13:10 07/23/22 08:49 Aspirin 81 Mg Ec Tablet PO 81 mg DAILY JOSE Administration Atorvastatin Calcium 40 mg 07/21/22 21:00 07/26/22 20:29 Atorvastatin 40 Mg Tablet PO 40 mg BEDTIME JOSE Administration Dexamethasone 4 mg 07/25/22 15:00 07/26/22 20:26 Dexamethasone 4 Mg/Ml Inj IVP 4 mg TID JOSE Administration Enoxaparin Sodium 40 mg 07/23/22 08:30 07/23/22 08:49 Enoxaparin 40 Mg/0.4 Ml Syringe SUBCUT 40 mg Q24H JOSE Administration Dextrose 35.5 ml/ Sterile 50 mls @ 600 mls/hr 07/22/22 01:25 07/22/22 04:16 Water 14.5 ml/ N/A IVP Infused PRN PRN Infusion HYPOGLYCEMIA Piperacillin Sod/Tazobactam 50 mls @ 12.5 mls/hr 07/22/22 11:00 07/27/22 03:40 Sod 3.375 gm/ Sodium Chloride IV Infused Q12H JOSE Infusion Protocol Norepinephrine Bitartrate 4 mg 254 mls @ 0 mls/hr 07/22/22 11:45 07/25/22 09:15 / Dextrose IV 0 mcg/min .Q0M JOSE 0 mls/hr Titration Protocol Per Protocol Vancomycin HCl 1,000 mg/ 250 mls @ 250 mls/hr 07/24/22 13:00 07/26/22 19:00 Sodium Chloride IV Infused Q48H JOSE Infusion Protocol Dextrose 500 mls @ 25 mls/hr 07/22/22 17:00 07/26/22 19:44 D20w IV Not Given .Q20H JOSE Albumin Human 25 g in 100 mls @ 60 mls/hr 07/25/22 11:45 07/27/22 05:29 Albumin IV Infused Q8H JOSE Infusion Ondansetron HCl 4 mg 07/21/22 09:41 07/25/22 11:39 Ondansetron 2 Mg/Ml Sdv 2 Ml IVP 4 mg Q6H PRN Administration NAUSEA AND VOMITING Pantoprazole Sodium 40 mg 07/22/22 09:00 07/26/22 08:[address] 40 Mg Tablet PO 40 mg DAILY JOSE Administration Sodium Chloride 50 ml 07/27/22 03:56 07/27/22 05:32 Sodium Chloride 0.9% 100 Ml Bag IV 07/28/22 03:56 50 ml PRN PRN Administration Blood transfusion prime and flush PFSH Acute PFSH: Medical History AAA (abdominal aortic aneurysm) Acid reflux Anxiety with depression Atrophy of right kidney CKD (chronic kidney disease) stage 3, GFR 30-59 ml/min COPD (chronic obstructive pulmonary disease) Environmental and seasonal allergies Essential hypertension Hepatic insufficiency Hx of coronary angiogram Hyperlipidemia, mixed Irritable bowel syndrome with diarrhea Left bundle branch block Macrocytic anemia JESSICA on CPAP Parkinson disease PVD (peripheral vascular disease) Tachycardia Transaminitis Surgical History History of abdominal aortic aneurysm (AAA) repair Two different repairs in [place] History of arthroscopy of both shoulders History of bariatric surgery 3 different surgeries 2007 History of cholecystectomy History of colonoscopy with polypectomy Benign History of hysterectomy with bilateral oophorectomy History of renal stent History of tonsillectomy and adenoidectomy History of vein stripping Bilateral legs Personal history of benign breast biopsy Family History Father Cancer Social History Smoking and tobacco status: current every day smoker Lives independently: No Housing: Assisted Living Facility Marital status: Marital status details: Sanjuana Coelho Number of children: 3 Current occupational status: retired Current gender identity: Female Vitals/I&O/Wt Last Vital Signs Temp 98.2 F 07/27/22 06:47 Pulse 65 07/27/22 06:47 Resp 15 07/27/22 06:47 BP 121/54 07/27/22 06:47 Pulse Ox 96 07/27/22 06:47 O2 Del Method Nasal Cannula 07/27/22 06:00 O2 Flow Rate 2 07/27/22 06:00 07/26/22 07/26/22 07/27/22 14:59 22:59 06:59 Intake Total 337.7 / 337.7 820 / 1157.7 400 / 1557.7 Output Total 750 / 750 800 / 1550 Balance 337.7 / 337.7 70 / 407.7 -400 / 7.7 Weight last 48 hrs Weight 210 lb 14.4 oz Weight 211 lb Physical Exam Narrative: General : Patient is well developed , no acute distress Head : Normal cephalic, a-traumatic. Ears : Pinnae and external canal are normal. Hearing is normal. Eyes : PERRLA, Sclera and injection are normal. No conjunctival discharge. Nose : Mucous membranes are without erythema. Throat : buccal mucosa is normal, gums are without significant recession or hypertrophy. Lungs : Equal chest rise bilaterally, no use of accessory muscles, trachea is midline. Cor : Rate and rhythm are normal. Abdomen : Soft, ND, some right upper quadrant tenderness, no g/r/m Extremities : No edema, no cyanosis or clubbing, dorsalis pedis pulses are present bilaterally, non-tender to palpation of calves. Upper extremities are normal bilaterally. Back : non-tender to palpation, no CVA tenderness. Neuro : CN II - XII intact, Upper and lower extremities have equal and full strength Urinary Catheter Management: Hernandez: Cath Placed During This Visit: yes Reason for Continuing Indwelling Catheter: Accurate Measurement of Urinary Output in Critically Ill Patients Urinary Catheter Date of Insertion: 07/21/22 Urinary Catheter Time of Insertion: 08:49 Data 07/27/22 02:52 07/27/22 02:52 A&P Assessment and plan (1) Hyperbilirubinemia: Plan Recommend Glucagon for possible Sphincter of Oddi dysfunction Repeat bilirubin in the morning If bilirubin continues to go up, recommend transfer for possible ERCP Medical management per primary Coding Level of Care Code Acute Code for Chg Fwd Diagnoses Hyperbilirubinemia E80.6
--- NOTE | 2022-07-26 16:34 | PM.PN ---
Subjective Subjective: Patient was seen and examined this morning,Pc has decreased, T.Bili is going up.H&H : mostly stable. Medications: Reviewed: Yes Medication Review Details: Generic Name Dose Route Start Last Admin Trade Name Freq PRN Reason Stop Dose Admin Acetaminophen 650 mg 07/21/22 13:02 07/25/22 12:25 Acetaminophen 32 5 Mg Tablet PO 650 mg Q6H PRN Administration MILD PAIN Aspirin 81 mg 07/21/22 13:10 07/23/22 08:49 Aspirin 81 Mg Ec Tablet PO 81 mg DAILY JOSE Administration Atorvastatin Calci um 40 mg 07/21/22 21:00 07/24/22 20:57 Atorvastatin 40 Mg Tablet PO 40 mg BEDTIME JOSE Administration Dexamethasone 4 mg 07/25/22 15:00 07/25/22 14:12 Dexamethasone 4 Mg/Ml Inj IVP 4 mg TID JOSE Administration Enoxaparin Sodium 40 mg 07/23/22 08:30 07/23/22 08:49 Enoxaparin 40 Mg /0.4 Ml Syringe SUBCUT 40 mg Q24H JOSE Administration Dextrose 35.5 ml/ Sterile 50 mls @ 600 mls/ hr 07/22/22 01:25 07/22/22 04:16 Water 14.5 ml/ N /A IVP Infused PRN PRN Infusion HYPOGLYCEMIA Piperacillin Sod/T azobactam 50 mls @ 12.5 mls /hr 07/22/22 11:00 07/25/22 11:39 Sod 3.375 gm/ So dium Chloride IV 12.5 mls/hr Q12H JOSE Administration Protocol Norepinephrine Bit artrate 4 mg 254 mls @ 0 mls/h r 07/22/22 11:45 07/25/22 09:15 / Dextrose IV 0 mcg/min .Q0M JOSE 0 mls/hr Titration Protocol Per Protocol Vancomycin HCl 1,0 00 mg/ 250 mls @ 250 mls /hr 07/24/22 13:00 07/24/22 19:48 Sodium Chloride IV Infused Q48H JOSE Infusion Protocol Dextrose 500 mls @ 25 mls/ hr 07/22/22 17:00 07/25/22 11:10 D20w IV 2 mls/hr .Q20H JOSE Infusion Albumin Human 25 g in 100 mls @ 60 mls/hr 07/25/22 11:45 07/25/22 14:31 Albumin IV Infused Q8H JOSE Infusion Ondansetron HCl 4 mg 07/21/22 09:41 07/25/22 11:39 Ondansetron 2 Mg /Ml Sdv 2 Ml IVP 4 mg Q6H PRN Administration NAUSEA AND VOMITI NG Pantoprazole Sodiu m 40 mg 07/22/22 09:00 07/25/22 11:[address] 40 Mg Tablet PO 40 mg DAILY JOSE Administration Vitals/I&O/Wt Last Vital Signs Temp 98.2 F 07/26/22 04:00 Pulse 90 07/26/22 13:00 Resp 23 H 07/26/22 13:00 BP 109/67 07/26/22 12:00 Pulse Ox 97 07/26/22 11:00 O2 Del Method Nasal Cannula 07/26/22 08:42 O2 Flow Rate 2 07/26/22 08:42 07/26/22 07/26/22 07/26/22 06:59 14:59 22:59 Intake Total 277.967 / 1271.191 320 / 320 Output Total 800 / 1500 Balance -522.033 / -228.809 320 / 320 Weight last 48 hrs Weight 95.708 kg Weight 93.894 kg Physical Exam Const: COMMON NORMALS: patient oriented x3 HENMT: COMMON NORMALS: normocephalic and atraumatic HEAD & SCALP: normocephalic and atraumatic Resp: COMMON NORMALS: normal respiratory effort, No retractions, No use of accessory muscles and clear to auscultation bilaterally EFFORT & INSPECTION: Yes symmetric chest movement AUSCULTATION: clear to auscultation bilaterally Cardio: COMMON NORMALS: regular rate, regular rhythm, S1 normal heart sound present, S2 normal heart sound present, No gallops present (Cardio), No murmurs present (Cardio), No rub (Cardio) and Peripheral pulses 2+ throughout RATE: regular rate RHYTHM: regular rhythm HEART SOUNDS: S1 normal heart sound present and S2 normal heart sound present PERIPHERAL PULSES: Peripheral pulses 2+ throughout GI: COMMON NORMALS: Normal to inspection, nondistended, normoactive bowel sounds present, Soft to palpation, non-tender, No hepatosplenomegaly present and no masses AUSCULTATION: Yes normoactive bowel sounds PALPATION: Yes Soft to palpation and Yes No hepatosplenomegaly present RECTAL EXAM: deferred Extremity: COMMON NORMALS: no clubbing, cyanosis or edema and no pedal edema NARRATIVE EXTREMITY EXAM: Bilateral lower extremity redness and tenderness present. Neuro: COMMON NORMALS: patient oriented x3 Urinary Catheter Management: Hernandez: Cath Placed During This Visit: yes Reason for Continuing Indwelling Catheter: Accurate Measurement of Urinary Output in Critically Ill Patients Urinary Catheter Date of Insertion: 07/21/22 Urinary Catheter Time of Insertion: 08:49 Data 07/27/22 02:52 07/27/22 02:52 A&P Assessment and plan (1) Bradycardia: Patient noted to have bradycardia, baseline rhythm appears to be slow A-fib, heart rate ranging between 30 to 40 bpm. Blood pressure is currently maintained between 1 30-1 40 systolic. Holding metoprolol, patient takes 125 mics as outpatient. Continue telemetry monitoring (2) NSTEMI (non-ST elevated myocardial infarction): Baseline troponin elevated at 172, trending down at 2 hours to 168, trended won at 6 hrs Denies any current chest pain echo without RWMA, EF 60%., gr 1 diastolic dysfunction Troponin elevation maybe related to CKD Cardiology consult appreciated Was on heparin drip has been discontinued. (3) Hypotension: CT chest without contrast no consolidation seen. CT abdomen and pelvis: No acute abdominal or pelvic pathology seen. Abdominal ultrasound: Blood culture:NTD UA: Negative Lactic acid: Normal Procalcitonin:Nomal. Currently on Levophed Random cortisol:22 May be related to bradycardia when BP dropped to 76 systolic. Currently on Levophed (4) Hypoglycemia: unclear etiology patient is not diabetic Not on any inuslin or other OHas has remote h/o bariatric surgery Cortisol random, TSH normal Check insulin level, C peptide, CT abdomen for insulinomas or adrenal masses (5) Acute on chronic kidney failure: Per family baseline creatinine appears to be about 3.5. Last creatinine in our system from July 05, 2022 at 3.3 Creatinine today at 4.2, down from 4.7. Urine output 900 cc May be related to hypotension Currently on d20 @ 25 cc/hr Renal artery Doppler to assess patency of stent Discussed with family that ideally would prefer to do a CTA, however due to concern for potential RUSSELL and need to be started on hemodialysis holding off for now while pending serial creatinine checks. Check CT abdomen/pelvis for any obstrcutive process (6) History of abdominal aortic aneurysm (AAA) repair: Requested records from [place] (7) Atrial fibrillation: Not on anticoagulation as outpatient (8) History of renal stent: (9) Thrombocytopenia: Thrombocytopenia: Likely secondary to DIC Admission platelet count:102 Current platelet count is 75,000 Peripheral blood smear reviewed: DIC panel: Results appreciated 4T Score : HIT : Plasmic score for TTP Currently patient has no significant bleeding. Monitor platelet count for now (10) DIC (disseminated intravascular coagulation): Elevated PT,aPTT, elevated INR, low serum fibrinogen, high D-dimer. Low fibrinogen level is unlikely related to hypofibrinogenemia. Conservative management,with treatment of underlying cause. (11) Total bilirubin, elevated: Follow limited ultrasound abdomen.Cholecystectomy.Common bile duct dilatation measuring 14 mm. MRCP: Common bile duct measures 11 mm but no filling defects are identified.Normal tapering to the ampulla of Vater. May be normal physiologic dilatation related to aging and post cholecystectomy. Monitor CMP for now. Follow a.m. total bilirubin as well as direct bilirubin. (12) Cellulitis: Bilateral lower extremity cellulitis: Currently appropriately covered with broad-spectrum antibiotic. (13) Sepsis: Patient likely has sepsis secondary to cellulitis: And possibly sepsis is giving rise to DIC: Patient currently meets sepsis criteria as she was hypotensive, also had hypothermia, initially hypotension was attributed to bradycardia, but patient continued to required Levophed even after, improvement in her heart rate, at one-point even with her improving heart rate Levophed requirement went up, requiring the need for bolus IV fluid, albumin to help with blood pressure, and continued IV antibiotic.Though her cultures have remained negative, imaging studies for most part has been unremarkable.Lactic acid:1.7, procalcitonin:0.70. Hypoglycemia could be explained be explained with sepsis. Current plan is to continue with IV antibiotics and de-escalate accordingly with clinical improvement.Patient likely developed sepsis during hospital stay. Plan DVT prophylaxis: On SCDS Protonix for PUD prophylaxis Full code, discussed with patient Attestations Medical Necessity Statement*: Needs to be in hospital for the management of DIC. Coding Level of Care Code Acute Code for Chg Fwd Diagnoses Bradycardia R00.1 NSTEMI (non-ST elevated myocardial infarction) I21.4 Hypotension I95.9 Hypoglycemia E16.2 Acute on chronic kidney failure N17.9; N18.9 History of abdominal aortic aneurysm (AAA) repair Z98.890 Atrial fibrillation I48.91 History of renal stent Thrombocytopenia D69.6 DIC (disseminated intravascular coagulation) D65 Total bilirubin, elevated R17 Cellulitis L03.90 Sepsis A41.9
[2022-07-26 19:08] LABS: Glucose Point of Care 122 mg/dL (70-110)
--- NOTE | 2022-07-26 19:40 | PC.NURSE ---
D20 Paused: Per shift report w/ SALBADOR Jimenez, D20 was paused per doctor order at approximately 10am, MAR changed to reflect this.
[2022-07-26] MEDS: atorvastatin 40 mg Tablet PO (20:29)
--- NOTE | 2022-07-26 23:41 | PC.NURSE ---
Refusing Turns: Pt is refusing being turning in bed. Educated pt on risk of worsening skin breakdown, pt verbalized understanding. Offered to turn pt w/ bed as an alternative. Attempted to turn using bed and pt stated , thats too much and requested the bed be turned back. Will continue to offer turning every hour during pt rounding.
[2022-07-27] VITALS (60 sets, daily range): BP systolic 101–137; BP diastolic 38–104; PULSE 65–122; RESP 12–31; TEMP 36.4–37.1; O2SAT 89–100
[2022-07-27 00:24] LABS: Glucose Point of Care 109 mg/dL (70-110)
[2022-07-27 03:29] LABS: Hemoglobin 6.8 g/dL (11.5-15.3); Lymphocytes # 0.2 10^3/uL (0.8-4.8); Mean Corpuscular Hemoglobin 32.9 pg (28.0-34.0); Mean Corpuscular Volume 99.5 fl (81-99); Monocytes # 0.3 10^3/uL (0.2-0.9); Monocytes % 7.1 %; Neutrophils # 4.16 10^3/uL (1.8-7.7); Neutrophils % 87.3 %; Nucleated Red Blood Cells % 0 %; Platelet Count 58 10^3/cmm (130-400); Red Blood Count 2.07 10^6/uL (4.1-5.3); Red Cell Distribution Width 14.8 % (12.1-15.1); White Blood Count 4.8 10^3/uL (4.0-10.0)
[2022-07-27] MEDS: albumin 25 G/100 ML VIAL IV ×3 (03:45→20:58)
[2022-07-27 03:48] LABS: Hematocrit 20.6 % (37.0-47.0)
[2022-07-27 03:52] LABS: Alanine Aminotransferase 28 U/L (0-33); Albumin Level 3.5 g/dL (3.5-5.2); Alkaline Phosphatase 124 U/L (35-105); Anion Gap 22.5 (5-19); Aspartate Amino Transferase 204 U/L (0-32); Calcium 7.5 mg/dL (8.5-10.5); Carbon Dioxide 21 mmol/L (22-29); Chloride 95 mmol/L (98-107); Globulin 1.1 g/dL (1.3-4.6); Glucose 102 mg/dL (65-115); Osmolality Calculated 303 mOsm/kg (285-295); Potassium 4.5 mmol/L (3.5-5.1); Sodium 134 mmol/L (136-145); Total Protein 4.6 g/dL (6.6-8.7)
[2022-07-27 03:56] LABS: Blood Urea Nitrogen 82 mg/dL (8-23); Lactate Dehydrogenase 282 U/L (135-214)
[2022-07-27 04:12] LABS: Glucose Point of Care 160 mg/dL (70-110)
[2022-07-27 04:14] LABS: Fibrinogen 32 mg/dL (174-498)
[2022-07-27 04:20] LABS: Beta-Hydroxybutyrate 0.07 mmol/L
[2022-07-27] MEDS: sodium chloride 0.9% 100 mL Bag 50 ML IV ×2 (05:32→12:08)
--- NOTE | 2022-07-27 07:03 | PM.PN ---
Subjective Subjective: Meghana is about the same this morning. Her hemoglobin hematocrit have dropped to 6.8 and 20.6 respectively. She is being transfused with red blood cells. BUN and creatinine are 82 and 3.4 respectively which are about the same. Her AST is up to 204, alkaline phosphatase up to 124 and LDH up to 282. Vital signs have been quite good. Her heart rate is in the 80s and still sinus rhythm. Urine output 1550 mL. She says she does not feel quite as good today as she did yesterday. Vitals/I&O/Wt Last Vital Signs Temp 98.2 F 07/27/22 06:47 Pulse 65 07/27/22 06:47 Resp 15 07/27/22 06:47 BP 121/54 07/27/22 06:47 Pulse Ox 96 07/27/22 06:47 O2 Del Method Nasal Cannula 07/27/22 06:00 O2 Flow Rate 2 07/27/22 06:00 07/26/22 07/27/22 07/27/22 22:59 06:59 14:59 Intake Total 820 / 1157.7 400 / 1557.7 Output Total 750 / 750 800 / 1550 Balance 70 / 407.7 -400 / 7.7 Weight last 48 hrs Weight 210 lb 14.4 oz Weight 211 lb Physical Exam Narrative: GENERAL: In general she is comfortable at rest HEENT: Exam within normal limits. NECK: Supple without jugular vein distention. The carotid upstroke is normal without bruits. BACK: Exam normal. LUNGS: Clear. HEART: Regular rate and rhythm. ABDOMEN: Benign without organomegaly or tenderness. EXTREMITIES: No edema. NEUROLOGIC: Exam normal. SKIN: Unremarkable. Bruises, excoriations. Urinary Catheter Management: Hernandez: Cath Placed During This Visit: yes Reason for Continuing Indwelling Catheter: Accurate Measurement of Urinary Output in Critically Ill Patients Urinary Catheter Date of Insertion: 07/21/22 Urinary Catheter Time of Insertion: 08:49 Data 07/27/22 02:52 07/27/22 02:52 A&P Assessment and plan (1) Hyperbilirubinemia: (2) Hepatic insufficiency: (3) Atrophy of right kidney: (4) Sepsis: (5) Cellulitis: (6) Total bilirubin, elevated: (7) DIC (disseminated intravascular coagulation): (8) Thrombocytopenia: (9) NSTEMI (non-ST elevated myocardial infarction): (10) History of abdominal aortic aneurysm (AAA) repair: (11) History of bariatric surgery: (12) Macrocytic anemia: (13) Left bundle branch block: (14) Atrial fibrillation: (15) Acute on chronic kidney failure: (16) AAA (abdominal aortic aneurysm): (17) PVD (peripheral vascular disease): (18) COPD (chronic obstructive pulmonary disease): (19) Hyperlipidemia, mixed: Plan She remains stable but still critically ill. Red blood cells today. Otherwise no change in management Attestations Medical Necessity Statement*: Requires continued hospitalization for management of multiple serious medical problems. and High Time for a total of 35 minutes, includes reviewing past or interval history, examining/interviewing patient, placing orders, counseling patient/family/other support, updating patient/family/other support, discussing plan of care with staff, communicating with other healthcare providers, documenting encounter and coordinating care Diagnoses Hyperbilirubinemia E80.6 Hepatic insufficiency K72.90 Atrophy of right kidney N26.1 Sepsis A41.9 Cellulitis L03.90 Total bilirubin, elevated R17 DIC (disseminated intravascular coagulation) D65 Thrombocytopenia D69.6 NSTEMI (non-ST elevated myocardial infarction) I21.4 History of abdominal aortic aneurysm (AAA) repair Z98.890 History of bariatric surgery Z98.84 Macrocytic anemia D53.9 Left bundle branch block I44.7 Atrial fibrillation I48.91 Acute on chronic kidney failure N17.9; N18.9 AAA (abdominal aortic aneurysm) I71.40 PVD (peripheral vascular disease) I73.9 COPD (chronic obstructive pulmonary disease) J44.9 Hyperlipidemia, mixed E78.2
[2022-07-27 07:12] LABS: Glucose Point of Care 62 mg/dL (70-110)
--- NOTE | 2022-07-27 07:40 | PC.NURSE ---
upon morning assessment, patient had a blood sugar of 62. Nurse gave patient 16oz of apple juice. Blood sugar checked 15 minutes later and it was up to 104.
[2022-07-27 07:41] LABS: Glucose Point of Care 103 mg/dL (70-110)
[2022-07-27] MEDS: pantoprazole DR 40 mg Tablet PO (09:05)
[2022-07-27] MEDS: dextrose 10% 1,000 ML 50 ML IV (09:36)
[2022-07-27 11:21] LABS: Glucose Point of Care 117 mg/dL (70-110)
--- NOTE | 2022-07-27 11:23 | P.TS_ITS ---
Transfer Summary Providers Date of Admission: 07/21/22 07:38 Date of Discharge/Transfer: 07/27/22 Attending Provider at Admission: Melva Gracia MD Attending Provider at Transfer: Dennys Gr MD Primary Care Provider: IRMA Cabral Transfer Plans: Anticipated date of transfer: 07/27/22 . Diagnoses at Discharge Discharge Diagnosis (1) Bradycardia: Status: Acute (2) NSTEMI (non-ST elevated myocardial infarction): Status: Acute (3) Hypotension: Status: Acute (4) Hypoglycemia: Status: Acute (5) Acute on chronic kidney failure: Status: Acute (6) History of abdominal aortic aneurysm (AAA) repair: Status: Acute Permanent problem details: Two different repairs in [place] (7) Atrial fibrillation: Status: Acute (8) History of renal stent: Status: Acute (9) Thrombocytopenia: Status: Acute (10) DIC (disseminated intravascular coagulation): Status: Acute (11) Total bilirubin, elevated: Status: Acute (12) Cellulitis: Status: Acute (13) Sepsis: Status: Acute Reason for Visit Reason for Visit WEAKNESS Hospital Course Hospital Course ?81 year old female with a past medical history of abdominal aortic aneurysm, CKD, baseline creatinine around 3.5, last had vascular intervention for her AAA in January 2022 in [place], COPD, chronic venous insufficiency.? Hypertension, hyperlipidemia and IBS. She presents to the emergency room from [facility] with chief complaints of increasing weakness over the past 3 to 4 days.?She has sustained a few falls, about 1 month ago she fell out of her wheelchair.? 2 days ago she fell again and had some bruising over her face. She feels as if her legs are giving way from under her. She has had multiple episodes of diarrhea, not controlled with Imodium at home.Upon arrival at the emergency room she was found to be bradycardic with heart rate in the 40s.?Rhythm appears to be A-fib with an underlying left bundle branch block.? She had elevated troponin at 178, downtrending at 2 hours at 168. Admitted for the management of symptomatic bradycardia, with possible underlying sick sinus syndrome, NSTEMI, JERMAIN on CKD, she was initially kept on ACS protocol for NSTEMI cardiology was on board appears to be NSTEMI type II 2D echo showed:No without RWMA, EF 60%., gr 1 diastolic dysfunction. ACS protocol was later discontinued, bradycardia had also improved after holding the beta-blockers, patient hospital course has been complicated by development of sepsis possibly secondary to bilateral cellulitis rule out other causes, as well as DIC, patient required vasopressor support during the hospital stay but has been currently weaned off,her cultures have remained negative, imaging studies for most part has been unremarkable.Lactic acid:1.7, procalcitonin:0.70.Patient has been on broad-spectrum antibiotics Vanco and Zosyn. During the hospital stay patient also had DIC possibly secondary to:Elevated PT,aPTT, elevated INR, low serum fibrinogen, high D-dimer.Low fibrinogen level is unlikely related to hypofibrinogenemia, patient has received blood transfusion 2 units PRBC, on 07/27 due to drop in H&H : Lowest noted hemoglobin was 6.8 ,she also received 1 unit of pooled cryoprecipitate for low fibrinogen. Thrombocytopenia is related to DIC, and possible contribution from sepsis, during the hospital stay patient was also found to be hypoglycemic, patient has no known history of diabetes, she is not on any insulin or oral hypoglycemics, HbA1c was noted to be 4.4.has remote h/o bariatric surgery,Cortisol random, TSH normal insulin level, C peptide, pending, CT abdomen is not indicative of insulinomas or adrenal masses. With regards to her JERMAIN on CKD stage IV, she responded well to IV albumin as well as fluid bolus, at the time of discharge serum creatinine is more or less at the baseline. During the hospital stay patient also developed hyper bilirubinemia: Predomi nantly direct bilirubin elevation ultrasound abdomen.Cholecystectomy.Common bile duct dilatation measuring 14 mm. MRCP: Common bile duct measures 11 mm but no filling defects are identified. Normal tapering to the ampulla of Vater. May be normal physiologic dilatation related to aging and post cholecystectomy.Possible explanation for hyperbilirubinemia could be SOD, total bilirubin at the time of discharge was 5. Patient currently is being transferred to another hospital for possible ERCP. Physical Exam Const: COMMON NORMALS: patient oriented x3 HENMT: COMMON NORMALS: normocephalic and atraumatic HEAD & SCALP: normocephalic and atraumatic Resp: COMMON NORMALS: normal respiratory effort, No retractions, No use of accessory muscles and clear to auscultation bilaterally EFFORT & INSPECTION: Yes symmetric chest movement AUSCULTATION: clear to auscultation bilaterally Cardio: COMMON NORMALS: regular rate, regular rhythm, S1 normal heart sound present, S2 normal heart sound present, No gallops present (Cardio), No murmurs present (Cardio), No rub (Cardio) and Peripheral pulses 2+ throughout RATE: regular rate RHYTHM: regular rhythm HEART SOUNDS: S1 normal heart sound present and S2 normal heart sound present PERIPHERAL PULSES: Peripheral pulses 2+ throughout GI: COMMON NORMALS: Normal to inspection, nondistended, normoactive bowel sounds present, Soft to palpation, non-tender, No hepatosplenomegaly present and no masses AUSCULTATION: Yes normoactive bowel sounds PALPATION: Yes Soft to palpation and Yes No hepatosplenomegaly present RECTAL EXAM: deferred Extremity: COMMON NORMALS: no clubbing, cyanosis or edema and no pedal edema NARRATIVE EXTREMITY EXAM: Bilateral lower extremity redness and tenderness present. Neuro: COMMON NORMALS: patient oriented x3 Urinary Catheter Management: Hernandez: Cath Placed During This Visit: yes Reason for Continuing Indwelling Catheter: Accurate Measurement of Urinary Output in Critically Ill Patients Urinary Catheter Date of Insertion: 07/21/22 Urinary Catheter Time of Insertion: 08:49 TS Data Studies Completed and Pending Pending at discharge Category Date Time Status Blood Culture Stat Lab 07/22/22 14:15 Results C DIFF [Clostridioides Difficile PCR] Routine Lab 07/27/22 08:25 Received CBC Auto Diff [Complete Blood Count w/Auto] AM LABS Lab 07/28/22 04:00 Ordered CBC Auto Diff [Complete Blood Count w/Auto] AM LABS Lab 07/29/22 04:00 Ordered CMP [Comprehensive Metabolic Panel] AM LABS Lab 07/28/22 04:00 Ordered CMP [Comprehensive Metabolic Panel] AM LABS Lab 07/29/22 04:00 Ordered CRYOPRECIPITATE [Pooled-[facility]] Routine Lab 07/27/22 04:06 Results Complete Crossmatch Routine Lab 07/27/22 04:06 Results Enteric Bacterial Panel by PCR Routine Lab 07/27/22 08:25 Received Fibrinogen AM LABS Lab 07/28/22 04:00 Ordered Fibrinogen AM LABS Lab 07/29/22 04:00 Ordered Fibrinogen AM LABS Lab 07/30/22 04:00 Ordered PRBC [Leukocyte Reduced RBC] Routine Lab 07/27/22 04:06 Results PTT [Partial Thromboplastin Time] AM LABS Lab 07/28/22 04:00 Ordered PTT [Partial Thromboplastin Time] AM LABS Lab 07/29/22 04:00 Ordered PTT [Partial Thromboplastin Time] AM LABS Lab 07/30/22 04:00 Ordered Prothrombin Time INR AM LABS Lab 07/28/22 04:00 Ordered Prothrombin Time INR AM LABS Lab 07/29/22 04:00 Ordered Prothrombin Time INR AM LABS Lab 07/30/22 04:00 Ordered Type and Screen Routine Lab 07/27/22 04:06 Results Labs from last 24 hours 07/27/22 07/27/22 07/27/22 11:11 07:36 07:10 WBC RBC Hgb Hct MCV MCH MCHC RDW Plt Count MPV Neut % (Auto) Lymph % (Auto) Randall % (Auto) Eos % (Auto) Baso % (Auto) Neut # (Auto) Lymph # (Auto) Randall # (Auto) Eos # (Auto) Baso # (Auto) Nucleated RBC % (auto) Nucleated RBCs # Fibrinogen Sodium Potassium Chloride Carbon Dioxide Anion Gap BUN Creatinine GFR Calculation Glucose POC Glucose 117 H 103 62 L Calculated Osmolality Calcium Total Bilirubin AST ALT Alkaline Phosphatase Lactate Dehydrogenase Total Protein Albumin Globulin Beta-Hydroxybutyrate Vancomycin Trough Blood Type Rho(D) Type Antibody Screen Crossmatch 07/27/22 07/27/22 07/27/22 04:07 04:06 02:52 WBC RBC Hgb Hct MCV MCH MCHC RDW Plt Count MPV Neut % (Auto) Lymph % (Auto) Randall % (Auto) Eos % (Auto) Baso % (Auto) Neut # (Auto) Lymph # (Auto) Randall # (Auto) Eos # (Auto) Baso # (Auto) Nucleated RBC % (auto) Nucleated RBCs # Fibrinogen Sodium 134 L Potassium 4.5 Chloride 95 L Carbon Dioxide 21 L Anion Gap 22.5 H BUN 82 H* Creatinine 3.4 H GFR Calculation Not Reportable Glucose 102 POC Glucose 160 H Calculated Osmolality 303 H Calcium 7.5 L Total Bilirubin 5.0 H AST 204 H ALT 28 Alkaline Phosphatase 124 H Lactate Dehydrogenase Total Protein 4.6 L Albumin 3.5 Globulin 1.1 L Beta-Hydroxybutyrate Vancomycin Trough Blood Type A Positive Rho(D) Type Positive Antibody Screen Negative Crossmatch See Detail 07/27/22 07/27/22 07/27/22 02:52 02:52 02:52 WBC 4.8 RBC 2.07 L Hgb 6.8 L Hct 20.6 L* MCV 99.5 H MCH 32.9 MCHC 33.0 RDW 14.8 Plt Count 58 L MPV Not Reportable Neut % (Auto) 87.3 Lymph % (Auto) 5.0 Randall % (Auto) 7.1 Eos % (Auto) 0.0 Baso % (Auto) 0.0 Neut # (Auto) 4.16 Lymph # (Auto) 0.2 L Randall # (Auto) 0.3 Eos # (Auto) 0.0 Baso # (Auto) 0.0 Nucleated RBC % (auto) 0 Nucleated RBCs # 0.0 Fibrinogen 32 L Sodium Potassium Chloride Carbon Dioxide Anion Gap BUN Creatinine GFR Calculation Glucose POC Glucose Calculated Osmolality Calcium Total Bilirubin AST ALT Alkaline Phosphatase Lactate Dehydrogenase 282 H Total Protein Albumin Globulin Beta-Hydroxybutyrate Vancomycin Trough Blood Type Rho(D) Type Antibody Screen Crossmatch 07/27/22 07/26/22 07/26/22 00:20 19:02 14:47 WBC RBC Hgb Hct MCV MCH MCHC RDW Plt Count MPV Neut % (Auto) Lymph % (Auto) Randall % (Auto) Eos % (Auto) Baso % (Auto) Neut # (Auto) Lymph # (Auto) Randall # (Auto) Eos # (Auto) Baso # (Auto) Nucleated RBC % (auto) Nucleated RBCs # Fibrinogen Sodium Potassium Chloride Carbon Dioxide Anion Gap BUN Creatinine GFR Calculation Glucose POC Glucose 109 122 H 154 H Calculated Osmolality Calcium Total Bilirubin AST ALT Alkaline Phosphatase Lactate Dehydrogenase Total Protein Albumin Globulin Beta-Hydroxybutyrate Vancomycin Trough Blood Type Rho(D) Type Antibody Screen Crossmatch 07/26/22 07/22/22 12:07 14:47 WBC RBC Hgb Hct MCV MCH MCHC RDW Plt Count MPV Neut % (Auto) Lymph % (Auto) Randall % (Auto) Eos % (Auto) Baso % (Auto) Neut # (Auto) Lymph # (Auto) Randall # (Auto) Eos # (Auto) Baso # (Auto) Nucleated RBC % (auto) Nucleated RBCs # Fibrinogen Sodium Potassium Chloride Carbon Dioxide Anion Gap BUN Creatinine GFR Calculation Glucose POC Glucose Calculated Osmolality Calcium Total Bilirubin AST ALT Alkaline Phosphatase Lactate Dehydrogenase Total Protein Albumin Globulin Beta-Hydroxybutyrate 0.07 Vancomycin Trough 11.9 Blood Type Rho(D) Type Antibody Screen Crossmatch Completed Studies During Hospitalization Category Date Time Status CT chest abdomen pelvis [[place] [id number] Cat Scan 07/22/22 09:50 Completed ] Routine XR chest 1V portable [id number] Stat Exams 07/21/22 06:25 Completed XR chest 1V portable [id number] Stat Exams 07/22/22 12:48 Completed MR MRCP [id number] Routine MRI 07/25/22 07:54 [place] [id number] Routine Ultrasound 07/22/22 10:23 Completed CV renal doppler [id number] Routine Ultrasound 07/22/22 09:51 Completed CV. echo complete* [id number] Routine Ultrasound 07/21/22 13:07 Completed US abdomen limited [id number] Routine Ultrasound 07/24/22 12:42 Completed Laboratory Last Values WBC 4.8 10^3/uL (4.0-10.0) 07/27/22 02:52 RBC 2.07 10^6/uL (4.1-5.3) L 07/27/22 02:52 Hgb 6.8 g/dL (11.5-15.3) L 07/27/22 02:52 Hct 20.6 % (37.0-47.0) L* 07/27/22 02:52 MCV 99.5 fl (81-99) H 07/27/22 02:52 MCH 32.9 pg (28.0-34.0) 07/27/22 02:52 MCHC 33.0 g/dL (30.0-36.0) 07/27/22 02:52 RDW 14.8 % (12.1-15.1) 07/27/22 02:52 Plt Count 58 10^3/cmm (130-400) L 07/27/22 02:52 MPV Not Reportable 07/27/22 02:52 Neut % (Auto) 87.3 % 07/27/22 02:52 Lymph % (Auto) 5.0 % 07/27/22 02:52 Randall % (Auto) 7.1 % 07/27/22 02:52 Eos % (Auto) 0.0 % 07/27/22 02:52 Baso % (Auto) 0.0 % 07/27/22 02:52 Neut # (Auto) 4.16 10^3/uL (1.8-7.7) 07/27/22 02:52 Lymph # (Auto) 0.2 10^3/uL (0.8-4.8) L 07/27/22 02:52 Randall # (Auto) 0.3 10^3/uL (0.2-0.9) 07/27/22 02:52 Eos # (Auto) 0.0 10^3/uL (0.0-0.8) 07/27/22 02:52 Baso # (Auto) 0.0 10^3/uL (0.0-0.1) 07/27/22 02:52 Nucleated RBC % (auto) 0 % 07/27/22 02:52 Total Counted 100 (0-100) 07/22/22 02:30 Atypical Lymphs % 0.0 % (0-5) 07/22/22 02:30 Absolute Neutrophils 7.7 10^3/cmm (1.4-6.5) H 07/22/22 02:30 Segmented Neutrophils 85 % 07/22/22 02:30 Abs Segm Neuts (Man) 7.7 10/cmm (1.6-7.1) H 07/22/22 02:30 Band Neutrophils 0.0 % 07/22/22 02:30 Abs Band Neuts (Man) 0.0 10^3/cmm (0.0-1.2) 07/22/22 02:30 Absolute Lymphocytes 0.6 10^3/cmm (1.2-3.4) L 07/22/22 02:30 Lymphocytes (Manual) 7 % 07/22/22 02:30 Monocytes (Manual) 8.0 % 07/22/22 02:30 Absolute Monocytes 0.7 10^3/cmm (0.1-0.6) H 07/22/22 02:30 Eosinophils (Manual) 0 % 07/22/22 02:30 Absolute Eosinophils 0.0 10^3/cmm (0.0-0.7) 07/22/22 02:30 Basophils (Manual) 0.0 % 07/22/22 02:30 Absolute Basophils 0.0 10^3/cmm (0.0-0.2) 07/22/22 02:30 Nucleated RBCs # 0.0 /100WBC 07/27/22 02:52 Platelet Estimate Decreased (Normal) L 07/22/22 02:30 Macrocytosis 2+ H 07/22/22 02:30 Palomo Cells 1+ H 07/22/22 02:30 Schistocytes 1+ H 07/22/22 02:30 Haptoglobin 10.0 mg/L (30-200) L 07/25/22 02:45 PT 24.80 SECONDS (12.1-14.9) H 07/26/22 03:13 INR 2.15 (0.8-1.2) H 07/26/22 03:13 APTT 69.5 SECONDS (23.9-36.7) H 07/26/22 03:13 Fibrinogen 32 mg/dL (174-498) L 07/27/22 02:52 D-Dimer 5.49 ug/mIFEU (0-0.59) H 07/25/22 02:45 Sodium 134 mmol/L (136-145) L 07/27/22 02:52 Potassium 4.5 mmol/L (3.5-5.1) 07/27/22 02:52 Chloride 95 mmol/L (98-107) L 07/27/22 02:52 Carbon Dioxide 21 mmol/L (22-29) L 07/27/22 02:52 Anion Gap 22.5 (5-19) H 07/27/22 02:52 BUN 82 mg/dL (8-23) H* 07/27/22 02:52 Creatinine 3.4 mg/dL (0.5-0.9) H 07/27/22 02:52 GFR Calculation Not Reportable 07/27/22 02:52 Glucose 102 mg/dL (65-115) 07/27/22 02:52 POC Glucose 117 mg/dL (70-110) H 07/27/22 11:11 Estimat Average Glucose Cancelled 07/22/22 02:30 Hemoglobin A1c Cancelled 07/22/22 02:30 Insulin Ref Range uIU/mL 14.1 uIU/mL 07/22/22 14:47 C-Peptide 4.64 ng/mL (0.80-3.85) H 07/22/22 14:47 Calculated Osmolality 303 mOsm/kg (285-295) H 07/27/22 02:52 Lactate 1.7 mmol/L (0.5-2.2) 07/25/22 02:45 Calcium 7.5 mg/dL (8.5-10.5) L 07/27/22 02:52 Magnesium 1.5 mg/dL (1.7-2.3) L 07/22/22 02:30 Total Bilirubin 5.0 mg/dL (0.15-1.2) H 07/27/22 02:52 Direct Bilirubin 3.70 mg/dL (0.00-0.30) H 07/26/22 03:13 Indirect Bilirubin 0.80 07/26/22 03:13 AST 204 U/L (0-32) H 07/27/22 02:52 ALT 28 U/L (0-33) 07/27/22 02:52 Alkaline Phosphatase 124 U/L (35-105) H 07/27/22 02:52 Lactate Dehydrogenase 282 U/L (135-214) H 07/27/22 02:52 Troponin T Baseline 178 ng/L (0-10) H* 07/21/22 06:30 Troponin T 120 Minute 162.3 ng/L (0-10) H 07/21/22 08:46 Delta Troponin T -15.7 ABS# (0-10) L 07/21/22 08:46 Troponin T Hi Sens 6Hr 167.1 ng/L (0-10) H 07/21/22 15:05 Troponin T Hi Sens 6Hr Delta -10.9 ng/L (0-12) L 07/21/22 15:05 NT-Pro-B Natriuret Pep 4793 pg/mL (0-450) H 07/21/22 06:30 Total Protein 4.6 g/dL (6.6-8.7) L 07/27/22 02:52 Albumin 3.5 g/dL (3.5-5.2) 07/27/22 02:52 Globulin 1.1 g/dL (1.3-4.6) L 07/27/22 02:52 Lipase Cancelled 07/22/22 09:39 Beta-Hydroxybutyrate 0.07 mmol/L 07/22/22 14:47 Procalcitonin 0.70 ng/mL (0-0.5) H 07/25/22 02:45 TSH 1.85 uIU/mL (0.27-4.20) 07/21/22 06:30 Random Cortisol 22.18 ug/dL (2.47-19.5) H 07/22/22 02:30 Urine Color Yellow (Yellow) 07/21/22 08:47 Urine Appearance Clear (CLEAR) 07/21/22 08:47 Urine pH 5 (5-7) 07/21/22 08:47 Ur Specific [place] 1.015 (1.005-1.030) 07/21/22 08:47 Urine Protein Neg (Negative) 07/21/22 08:47 Urine Glucose (UA) Norm (Normal) 07/21/22 08:47 Urine Ketones Negative (Negative) 07/21/22 08:47 Urine Blood 3+ (Negative) H 07/21/22 08:47 Urine Nitrate Negative (Negative) 07/21/22 08:47 Urine Bilirubin Neg (Negative) 07/21/22 08:47 Urine Urobilinogen Norm mg/dL (Negative) 07/21/22 08:47 Ur Leukocyte Esterase Negative (Negative) 07/21/22 08:47 Urine RBC 0-4 /hpf (0-2) H 07/21/22 08:47 Urine WBC Rare /hpf (0-5) 07/21/22 08:47 Ur Squamous Epith Cells 5-10 /hpf (0-5) H 07/21/22 08:47 Amorphous Sediment Not Reportable 07/21/22 08:47 Urine Bacteria Trace /hpf (NONE) 07/21/22 08:47 Ur Random Sodium 50 mmol/L 07/22/22 10:59 Ur Random Potassium 30 mmol/L 07/22/22 10:59 Ur Random Chloride 47 mmol/L 07/22/22 10:59 Urine Creatinine 56 mg/dL (28-217) 07/22/22 10:59 Nasal Influ A H1 2009 PCR Not detected (NOT DETECT) 07/22/22 11:00 Vancomycin Trough 11.9 ug/mL (10-15) 07/26/22 12:07 Adenovirus (PCR) Not detected (NOT DETECT) 07/22/22 11:00 C. pneumoniae DNA (PCR) Not detected (NOT DETECT) 07/22/22 11:00 Coronavirus 229E (PCR) Not detected (NOT DETECT) 07/22/22 11:00 Human Metapneumovir PCR Not detected (NOT DETECT) 07/22/22 11:00 Influenza A (H1) PCR Not detected (NOT DETECT) 07/22/22 11:00 Influenza A (H3) PCR Not detected (NOT DETECT) 07/22/22 11:00 Influenza Type A (PCR) Not detected (NOT DETECT) 07/22/22 11:00 Influenza Type B (PCR) Not detected (NOT DETECT) 07/22/22 11:00 M. pneumoniae (PCR) Not detected (NOT DETECT) 07/22/22 11:00 Parainfluenza 1 (PCR) Not detected (NOT DETECT) 07/22/22 11:00 Parainfluenza 2 (PCR) Not detected (NOT DETECT) 07/22/22 11:00 Parainfluenza 3 (PCR) Not detected (NOT DETECT) 07/22/22 11:00 Parainfluenza 4 (PCR) Not detected (NOT DETECT) 07/22/22 11:00 RSV Type A (PCR) Not detected (NOT DETECT) 07/22/22 11:00 RSV Type B (PCR) Not detected (NOT DETECT) 07/22/22 11:00 Entero/Rhino (PCR) Not detected (NOT DETECT) 07/22/22 11:00 SARS-CoV-2 (PCR) Not detected (NOT DETECT) 07/22/22 11:00 Blood Type A Positive 07/27/22 04:06 Rho(D) Type Positive 07/27/22 04:06 Antibody Screen Negative 07/27/22 04:06 Crossmatch See Detail 07/27/22 04:06 Radiology Impressions Chest/Abdomen/Pelvis CT 07/22/22 09:50 IMPRESSION: 1. Enlargement of the left thyroid lobe with multiple nodules 2. Left lower lobe pleural thickening 3. Cardiomegaly, Heavy coronary artery calcifications 4. Right side PICC line in the SVC IMPRESSION: 1. The abdominal aorta is ectatic calcified and shows aneurysm with stent. 2. Cholecystectomy, hysterectomy. 3. Multiple metallic surgical clips left upper abdomen 4. Atrophic right kidney 5. Dorsolumbar spine osteoarthritis Duplex Scan Upper Extremity Artery 07/22/22 10:23 IMPRESSION: No acute findings. Chest X-Ray 07/22/22 12:48 IMPRESSION: 1. No acute findings. 2. Bilateral shoulder arthroplasty 3. Right side PICC line at the cavoatrial junction 4. Metallic surgical clips left upper quadrant Abdomen Ultrasound 07/24/22 12:42 IMPRESSION: 1. Cholecystectomy. 2. Common bile duct dilatation measuring 14 mm. MRCP has been scheduled. 3. Atrophic RIGHT kidney. No hydronephrosis. 4. Mild hepatomegaly. Cholangiopancreatography MRI 07/25/22 07:54 IMPRESSION: 1. Extremely limited evaluation of the abdominal structures due to multiple factors. 2. Common bile duct measures 11 mm but no filling defects are identified. Normal tapering to the ampulla of Vater. May be normal physiologic dilatation related to aging and post cholecystectomy. 3. Pancreas and the pancreatic head are poorly visualized. Patient is status post prior cholecystectomy as per history. Recent Clincial Data Last Vital Signs Temp 98.1 F 07/27/22 10:55 Pulse 79 07/27/22 10:55 Resp 13 07/27/22 10:55 BP 128/53 07/27/22 10:55 Pulse Ox 94 07/27/22 10:55 O2 Del Method Nasal Cannula 07/27/22 10:00 O2 Flow Rate 2.5 07/27/22 10:00 Vital Signs Temp Pulse Resp BP Pulse Ox O2 Del Method O2 Flow Rate 07/27/22 10:55 98.1 F 79 13 128/53 94 07/27/22 10:00 97.6 F 79 24 H 101/45 100 Nasal Cannula 2.5 07/27/22 09:55 98.2 F 80 16 115/54 95 07/27/22 09:30 73 22 H 115/53 96 07/27/22 09:00 80 15 133/54 98 07/27/22 08:30 85 22 H 136/49 97 07/27/22 08:00 97.5 F L 93 22 H 119/63 100 Room Air 2 07/27/22 07:30 80 19 H 114/56 97 07/27/22 07:00 80 13 121/54 92 07/27/22 06:30 83 13 129/52 92 07/27/22 09:40 98.7 F 68 15 101/45 95 07/27/22 09:23 98.4 F 70 16 115/53 95 07/27/22 08:00 80 16 97 Nasal Cannula 3 07/27/22 06:47 98.2 F 65 15 121/54 96 07/27/22 06:00 89 14 117/48 92 Nasal Cannula 2 07/27/22 05:45 83 12 124/48 97 Nasal Cannula 2 07/27/22 05:30 82 17 130/53 94 Nasal Cannula 2 07/27/22 05:15 84 18 109/50 Nasal Cannula 2 07/27/22 05:00 82 17 111/51 07/27/22 04:45 73 12 07/27/22 04:30 89 14 07/27/22 04:15 84 17 07/27/22 05:47 98.2 F 87 17 117/48 93 07/27/22 05:37 80 07/27/22 05:32 98.1 F 82 13 124/48 95 07/27/22 05:14 98.1 F 88 16 130/53 93 07/27/22 04:00 85 17 118/61 94 Nasal Cannula 2 07/27/22 03:00 87 20 H 132/55 07/27/22 02:00 86 17 134/79 94 Nasal Cannula 2 07/27/22 01:00 88 23 H 129/56 92 Nasal Cannula 2 07/27/22 00:15 97.9 F 81 13 129/56 93 Nasal Cannula 2 07/27/22 00:00 81 17 135/59 92 Nasal Cannula 2 07/26/22 23:45 86 15 135/58 92 Nasal Cannula 2 07/26/22 23:30 101 H 18 123/55 90 Nasal Cannula 2 Intake & Output/Weight 07/25/22 07/26/22 07/27/22 07/28/22 06:59 06:59 06:59 06:59 Intake Total 1953.113 / 8455.364 1723.191 / 1015.440 5513.7 / 1557.7 725 / 725 Output Total 1000 / 1000 1500 / 1500 1550 / 1550 150 / 150 Balance 954.113 / 954.113 -228.809 / -228.809 7.7 / 7.7 575 / 575 Weight 93.894 kg 95.708 kg 95.663 kg Vitals Last Vital Signs Temp 98.1 F 07/27/22 10:55 Pulse 79 07/27/22 10:55 Resp 13 07/27/22 10:55 BP 128/53 05/12/23 10:55 Pulse Ox 94 07/27/22 10:55 O2 Del Method Nasal Cannula 07/27/22 10:00 O2 Flow Rate 2.5 07/27/22 10:00 TS Medications Medications Acetaminophen (Acetaminophen 325 Mg Tablet) 650 mg PO Q6H PRN PRN Reason: MILD PAIN Last Admin: 07/25/22 12:25 Dose: 650 mg Albuterol Sulfate (Albuterol 2.5 Mg/3 Ml Neb) 2.5 mg INHALATION Q4H.RESPIRATORY PRN PRN Reason: wheezing Aspirin (Aspirin 81 Mg Ec Tablet) 81 mg PO DAILY JOSE Last Admin: 07/23/22 08:49 Dose: 81 mg Atorvastatin Calcium (Atorvastatin 40 Mg Tablet) 40 mg PO BEDTIME JOSE Last Admin: 07/26/22 20:29 Dose: 40 mg Dextrose (Dextrose 50% Syringe 50 Ml) 50 ml IVP PRN PRN; Protocol PRN Reason: HYPOGLYCEMIA Dextrose (Dextrose 50% Syringe 50 Ml) 25 ml IVP ONCE PRN; Protocol PRN Reason: HYPOGLYCEMIA Enoxaparin Sodium (Enoxaparin 40 Mg/0.4 Ml Syringe) 40 mg SUBCUT Q24H JOSE Last Admin: 07/23/22 08:49 Dose: 40 mg Dextrose (D5w) 500 mls @ 500 mls/hr IV ONCE PRN; Protocol PRN Reason: HYPOGLYCEMIA Dextrose 35.5 ml/ Sterile (Water 14.5 ml/ N/A) 50 mls @ 600 mls/hr IVP PRN PRN PRN Reason: HYPOGLYCEMIA Last Infusion: 07/22/22 04:16 Dose: Infused Piperacillin Sod/Tazobactam (Sod 3.375 gm/ Sodium Chloride) 50 mls @ 12.5 mls/hr IV Q12H JOSE; Protocol Last Infusion: 07/27/22 03:40 Dose: Infused Norepinephrine Bitartrate 4 mg (/ Dextrose) 254 mls @ 0 mls/hr IV .Q0M JOSE; Protocol Last Titration: 07/25/22 09:15 Dose: 0 mcg/min, 0 mls/hr Vancomycin HCl 1,000 mg/ (Sodium Chloride) 250 mls @ 250 mls/hr IV Q48H JOSE; Protocol Last Infusion: 07/26/22 19:00 Dose: Infused Albumin Human (Albumin) 25 g in 100 mls @ 60 mls/hr IV Q8H [facility] Last Infusion: 07/27/22 05:29 Dose: Infused Dextrose (D10w) 1,000 mls @ 30 mls/hr IV .Q24H [facility] Last Infusion: 07/27/22 09:54 Dose: 30 mls/hr Ondansetron HCl (Ondansetron 2 Mg/Ml Sdv 2 Ml) 4 mg IVP Q6H PRN PRN Reason: NAUSEA AND VOMITING Last Admin: 07/25/22 11:39 Dose: 4 mg Ondansetron HCl (Ondansetron 2 Mg/Ml Sdv 2 Ml) 4 mg IVP Q6H PRN PRN Reason: NAUSEA AND VOMITING Pantoprazole Sodium (Pantoprazole Dr 40 Mg Tablet) 40 mg PO DAILY [facility] Last Admin: 07/27/22 09:05 Dose: 40 mg Sodium Chloride (Sodium Chloride 0.9% 100 Ml Bag) 50 ml IV PRN PRN PRN Reason: Blood transfusion prime and flush Stop: 07/28/22 03:56 Last Admin: 07/27/22 05:32 Dose: 50 ml Discontinued Medications Dexamethasone (Dexamethasone 4 Mg/Ml Inj) 4 mg IVP TID [facility] Last Admin: 07/26/22 20:26 Dose: 4 mg Heparin Sodium (Porcine) (Heparin 5,000 Unit/Ml Inj 1 Ml) 0 unit IV PRN PRN; Protocol PRN Reason: Heparin weight-base protocol Last Admin: 07/21/22 08:17 Dose: 4,800 unit Heparin Sodium (Porcine) (Heparin 5,000 Unit/Ml Inj 1 Ml) 5,000 unit SUBCUT Q12H [facility] Sodium Chloride (Sodium Chloride 0.9%) 500 mls @ 999 mls/hr IV .Q31M ONE Stop: 07/21/22 07:02 Last Infusion: 07/21/22 09:04 Dose: Infused Heparin Sodium/Sodium Chloride (Heparin Drip) 25,000 unit in 500 mls @ 0 mls/hr IV .Q0M [facility]; Protocol Last Titration: 07/22/22 09:30 Dose: Infused Sodium Chloride (Sodium Chloride 0.9%) 1,000 mls @ 50 mls/hr IV .Q20H [facility] Last Infusion: 07/21/22 19:28 Dose: 0 mls/hr Dextrose (D10w) 1,000 mls @ 100 mls/hr IV .Q10H [facility] Last Infusion: 07/22/22 05:01 Dose: Infused Dextrose 35.5 ml/ Sterile (Water 14.5 ml/ N/A) 50 mls @ 600 mls/hr IVP ONCE ONE Stop: 07/21/22 19:34 Last Infusion: 07/21/22 19:29 Dose: Infused Dextrose 35.5 ml/ Sterile (Water 14.5 ml/ N/A) 50 mls @ 600 mls/hr IVP ONCE ONE Stop: 07/21/22 20:34 Last Infusion: 07/21/22 22:35 Dose: Infused Dextrose (D5w) 500 mls @ 500 mls/hr IV PRN ONE; Protocol Stop: 07/21/22 22:19 Dextrose (D10w) 1,000 mls @ 125 mls/hr IV .Q8H [facility]; Protocol Last Infusion: 07/22/22 14:45 Dose: Infused Vancomycin/PEG/[place]/Lysine/Water (Vancocin) 1,500 mg in 300 mls @ 200 mls/hr IV ONCE ONE Stop: 07/22/22 14:29 Last Infusion: 07/22/22 17:36 Dose: Infused Dextrose (D5w) 1,000 mls @ 100 mls/hr IV .Q10H [facility] Last Infusion: 07/22/22 17:16 Dose: Infused Dextrose (D20w) 500 mls @ 25 mls/hr IV .Q20H [facility] Last Admin: 07/26/22 19:44 Dose: Not Given Albumin Human (Albumin) 25 g in 100 mls @ 60 mls/hr IV Q8H [facility] Stop: 07/24/22 07:00 Last Infusion: 07/24/22 06:07 Dose: Infused Sodium Chloride (Sodium Chloride 0.9%) 500 mls @ 500 mls/hr IV ONCE ONE Stop: 07/23/22 11:15 Last Infusion: 07/23/22 13:01 Dose: Infused Sodium Chloride (Sodium Chloride 0.9% (100 Ml)) Confirm Administered Dose 100 mls @ as directed .ROUTE .STK-MED ONE Stop: 07/23/22 19:24 Last Admin: 07/23/22 19:55 Dose: Not Given Albumin Human (Albumin) 25 g in 100 mls @ 60 mls/hr IV Q8H [facility] Stop: 07/25/22 08:00 Last Infusion: 07/25/22 06:22 Dose: Infused Dextrose 35.5 ml/ Sterile (Water 14.5 ml/ N/A) 50 mls @ 600 mls/hr IVP ONCE ONE Stop: 07/25/22 09:49 Last Infusion: 07/25/22 09:51 Dose: Infused Albumin Human (Albumin) 25 g in 100 mls @ 60 mls/hr IV Q8H [facility] Last Admin: 07/25/22 14:32 Dose: Not Given Octreotide Acetate (Octreotide 100 Mcg/Ml Sdv) 50 mcg IVP ONCE ONE Stop: 07/22/22 02:38 Last Admin: 07/22/22 03:09 Dose: 50 mcg Potassium Chloride (Potassium Chloride Er 20 Meq Tablet) 40 meq PO ONCE ONE Stop: 07/23/22 04:15 Last Admin: 07/23/22 05:11 Dose: 40 meq Allergies codeine Allergy (Verified 07/04/22 14:56) Unknown Home Medications CPAP supplies #1 ea 07/04/22 [Rx Confirmed 07/21/22] Wheelchair to fit #1 ea 07/04/22 [Rx Confirmed 07/21/22] acetaminophen 650 mg tablet,extended release 650 mg PO Q6H PRN Pain 07/04/22 [History Confirmed 07/21/22] albuterol 90 mcg/actuation aerosol inhaler 90 mcg inhalation Q6H PRN Shortness Of Breath 07/04/22 [History Confirmed 07/21/22] albuterol sulfate 2.5 mg/3 mL (0.083 %) solution for nebulization 2.5 mg (3 mL) inhalation TID PRN shortness of breath or wheezing #180 mL 07/04/22 [Rx Confirmed 07/21/22] aripiprazole 15 mg tablet 15 mg PO DAILY #30 tabs 07/04/22 [Rx Confirmed 07/21/22] aspirin 81 mg tablet,delayed release (Adult Low Dose Aspirin) 81 mg PO DAILY #1 tab 07/04/22 [Rx Confirmed 07/21/22] atorvastatin 40 mg tablet 40 mg PO DAILY #30 tabs 07/04/22 [Rx Confirmed 07/21/22] carbidopa 25 mg-levodopa 250 mg tablet 1 tab PO QID #120 tabs 07/04/22 [Rx Confirmed 07/21/22] desvenlafaxine succinate 25 mg tablet,extended release 24 hr 25 mg PO DAILY #30 tabs 07/04/22 [Rx Confirmed 07/21/22] dextromethorphan-guaifenesin 30 mg-600 mg tablet extended [id number] hr (Mucinex DM) 1 tab PO Q12H #60 tabs 07/04/22 [Rx Confirmed 07/21/22] fenofibrate 160 mg tablet 160 mg PO DAILY #30 tabs 07/04/22 [Rx Confirmed 07/21/22] fluticasone fur. 100 mcg-umeclid 62.5 mcg-vilant 25 mcg inhalat.powder (Trelegy Ellipta) 1 inh inhalation Q24H #60 ea 07/04/22 [Rx Confirmed 07/21/22] furosemide 40 mg tablet 80 mg PO DAILY #60 tabs 07/04/22 [Rx Confirmed 07/21/22] lansoprazole 30 mg capsule,delayed release 30 mg PO DAILY #30 caps 07/04/22 [Rx Confirmed 07/21/22] losartan 50 mg tablet 50 mg PO DAILY #30 tabs 07/04/22 [Rx Confirmed 07/21/22] metolazone 5 mg tablet See Rx Instructions .Route .COMPLEX 07/04/22 [History Confirmed 07/21/22] nebulizers #1 ea 07/04/22 [Rx Confirmed 07/21/22] oxycodone-acetaminophen 5 mg-325 mg tablet 1 tab PO Q8H PRN Pain 07/04/22 [History Confirmed 07/21/22] diphenoxylate-atropine 2.5 mg-0.025 mg tablet (Lomotil) 1 tab PO TID #90 tabs 07/05/22 [Rx Confirmed 07/21/22] silver sulfadiazine 1 % topical cream (Silvadene) 1 applic topical DAILY #400 grams 07/05/22 [Rx Confirmed 07/21/22] cholecalciferol (vitamin D3) 125 mcg (5,000 unit) capsule 125 mcg PO DAILY #30 caps 07/06/22 [Rx Confirmed 07/21/22] doxycycline hyclate 100 mg capsule (Vibramycin) 100 mg PO BID #20 caps 07/06/22 [Rx Confirmed 07/21/22] metoprolol succinate 100 mg tablet,extended release 24 hr 100 mg PO BEDTIME 07/21/22 [History Confirmed 07/21/22] metoprolol succinate 25 mg tablet,extended release 24 hr 25 mg PO BEDTIME 07/21/22 [History Confirmed 07/21/22] potassium chloride 20 mEq tablet,extended release 20 meq PO DAILY 07/21/22 [History Confirmed 07/21/22] Discharge Plan Discharge Patient Disposition: Xfer Other Condition: Stable Prescriptions: Continued metolazone 5 mg tablet See Rx Instructions .ROUTE .COMPLEX Rx Instructions: 5 mg orally Mon, Weds, Sat acetaminophen 650 mg tablet extended release 650 mg PO Q6H PRN (Reason: Pain) albuterol 90 mcg/actuation aerosol 90 mcg inhalation Q6H PRN (Reason: Shortness Of Breath) oxycodone-acetaminophen 5-325 mg tablet 1 tab PO Q8H PRN (Reason: Pain) (DME) CPAP supplies See Rx Instructions .Route .MEDSUPPLY Qty: 1 0RF Rx Instructions: As directed (DME) Wheelchair to fit See Rx Instructions .Route .MEDSUPPLY Qty: 1 0RF Rx Instructions: As directed (DME) nebulizers [facility] See Rx Instructions .ROUTE .MEDSUPPLY Qty: 1 0RF Rx Instructions: As directed Mucinex DM 30-600 mg tablet extended release 12 hr 1 tab PO Q12H Qty: 60 5RF Trelegy Ellipta 100-62.5-25 mcg blister with device 1 inh inhalation Q24H Qty: 60 5RF albuterol sulfate 2.5 mg /3 mL (0.083 %) solution for nebulization 2.5 mg inhalation TID PRN (Reason: shortness of breath or wheezing) Qty: 180 5RF aripiprazole 15 mg tablet 15 mg PO DAILY Qty: 30 5RF aspirin [Adult Low Dose Aspirin] 81 mg tablet,delayed release (DR/EC) 81 mg PO DAILY Qty: 1 0RF atorvastatin 40 mg tablet 40 mg PO DAILY Qty: 30 5RF carbidopa-levodopa 25-250 mg tablet 1 tab PO QID Qty: 120 5RF desvenlafaxine succinate 25 mg tablet extended release 24 hr 25 mg PO DAILY Qty: 30 5RF fenofibrate 160 mg tablet 160 mg PO DAILY Qty: 30 5RF furosemide 40 mg tablet 80 mg PO DAILY Qty: 60 5RF lansoprazole 30 mg capsule,delayed release(DR/EC) 30 mg PO DAILY Qty: 30 5RF losartan 50 mg tablet 50 mg PO DAILY Qty: 30 5RF silver sulfadiazine [Silvadene] 1 % cream 1 applic topical DAILY Qty: 400 0RF Rx Instructions: apply a 1.5 mm thickness diphenoxylate-atropine [Lomotil] 2.5-0.025 mg tablet 1 tab PO TID Qty: 90 5RF doxycycline hyclate [Vibramycin] 100 mg capsule 100 mg PO BID Qty: 20 0RF cholecalciferol (vitamin D3) 125 mcg (5,000 unit) capsule 125 mcg PO DAILY Qty: 30 2RF potassium chloride 20 mEq Tablet Extended Release 20 meq PO DAILY metoprolol succinate 100 mg tablet extended release 24 hr 100 mg PO BEDTIME metoprolol succinate 25 mg tablet extended release 24 hr 25 mg PO BEDTIME Referrals: [facility] [Outside] Brianna Cotton FNP-C [Primary Care Provider] - Transfer Attestations Time Spent in Transfer Care: greater than 30 min Quality Metrics Clinical Quality Measures [ No reported AMI, CVA or VTE this stay] Coding Level of Care Code Acute Code for Chg Fwd Diagnoses Bradycardia R00.1 NSTEMI (non-ST elevated myocardial infarction) I21.4 Hypotension I95.9 Hypoglycemia E16.2 Acute on chronic kidney failure N17.9; N18.9 History of abdominal aortic aneurysm (AAA) repair Z98.890 Atrial fibrillation I48.91 History of renal stent Thrombocytopenia D69.6 DIC (disseminated intravascular coagulation) D65 Total bilirubin, elevated R17 Cellulitis L03.90 Sepsis A41.9
[2022-07-27] MEDS: piperacillin-tazobactam 3.375 GM in sodium chloride 0.9% (plus) 50 ML IV ×2 (11:40→23:54)
[2022-07-27] MEDS: acetaminophen 325 mg Tablet 650 MG PO (12:08)
--- NOTE | 2022-07-27 17:22 | PC.NURSE ---
Nurse and physical therapy attempting to get patient out of bed and up to a chair using the sit to stand assist device. During transition, patient went into [facility] with a heart rate of 220. Patient was laid back down in bed and after performing vagal maneuvers her heart rate quickly returned to SR. Vitals currently within normal limits. Physician notified, will continue to monitor.
[2022-07-27 17:28] LABS: Glucose Point of Care 105 mg/dL (70-110)
--- NOTE | 2022-07-27 18:01 | PC.NURSE ---
Shift Summary: Uneventful shift. Patient rested in bed throughout the day, did have a brief period of vtach with a rate in the 220s while getting up to the sit to stand, but it was quickly resolved with vagal maneuvers. Attempted to transfer to [facility] in [place] for ERCP, but was unable to get acceptance today. Received 2 units of blood and 1 unit of cryoprecipitate. 3 bowel movements and 600mL of urine output.
[2022-07-27] MEDS: atorvastatin 40 mg Tablet PO (20:58)
[2022-07-27 23:18] LABS: Glucose Point of Care 103 mg/dL (70-110)
[2022-07-28] VITALS (29 sets, daily range): BP systolic 98–145; BP diastolic 41–72; PULSE 70–100; RESP 12–29; TEMP 36.7–37.2; O2SAT 91–98
[2022-07-28] MEDS: ondansetron 2 mg/ML SDV 2 mL 4 MG IVP (00:19)
[2022-07-28] MEDS: diphenoxylate/atropine Tablet 2 TAB PO (00:50)
[2022-07-28 03:40] LABS: Glucose Point of Care 100 mg/dL (70-110)
[2022-07-28] MEDS: albumin 25 G/100 ML VIAL IV ×2 (04:02→13:22)
[2022-07-28 04:34] LABS: Hematocrit 23.4 % (37.0-47.0); Hemoglobin 7.8 g/dL (11.5-15.3); Mean Corpuscular HGB Conc 33.3 g/dL (30.0-36.0); Mean Corpuscular Hemoglobin 31.3 pg (28.0-34.0); Platelet Count 57 10^3/cmm (130-400); Red Blood Count 2.49 10^6/uL (4.1-5.3); Red Cell Distribution Width 17.1 % (12.1-15.1); White Blood Count 8.9 10^3/uL (4.0-10.0)
[2022-07-28 04:44] LABS: INR 2.18 (0.8-1.2)
[2022-07-28 04:45] LABS: Partial Thromboplastin Time 59.4 SECONDS (23.9-36.7)
[2022-07-28 04:58] LABS: Alanine Aminotransferase 41 U/L (0-33); Albumin Level 3.8 g/dL (3.5-5.2); Alkaline Phosphatase 156 U/L (35-105); Aspartate Amino Transferase 318 U/L (0-32); Blood Urea Nitrogen 79 mg/dL (8-23); Calcium 7.7 mg/dL (8.5-10.5); Carbon Dioxide 21 mmol/L (22-29); Chloride 94 mmol/L (98-107); Globulin 1.1 g/dL (1.3-4.6); Glucose 88 mg/dL (65-115); Osmolality Calculated 299 mOsm/kg (285-295); Sodium 133 mmol/L (136-145); Total Bilirubin 6.8 mg/dL (0.15-1.2); Total Protein 4.9 g/dL (6.6-8.7)
[2022-07-28 05:37] LABS: Band Neutrophils Absolute 0.1 10^3/cmm (0.0-1.2); Eosinophils 0 %; Lymphocytes 5 %; Monocytes Absolute 0.5 10^3/cmm (0.1-0.6); Total Cells Counted 100 (0-100)
[2022-07-28 05:38] LABS: Absolute Neutrophil 7.8 10^3/cmm (1.4-6.5); Absolute Segmented Neutrophil 7.7 10/cmm (1.6-7.1); Lymphocytes Absolute 0.4 10^3/cmm (1.2-3.4); Platelet Estimate Decreased (Normal); Segmented Neutrophils 87 %
[2022-07-28 05:39] LABS: Anisocytosis 2+; Macrocytosis 2+; Poikilocytosis 1+
[2022-07-28 05:40] LABS: Target Cells Trace
[2022-07-28 05:41] LABS: Fibrinogen 67 mg/dL (174-498); Hypochromasia 2+; Schistocytes 1+
[2022-07-28 07:26] LABS: Glucose Point of Care 84 mg/dL (70-110)
[2022-07-28] MEDS: pantoprazole DR 40 mg Tablet PO (08:51)
--- NOTE | 2022-07-28 09:07 | P.PN_ITS ---
Subjective Subjective: Cardiology coverage This patient is admitted to hospital with a septic shock. Apparently she developed DIC, anemia, thrombocytopenia, renal failure, liver failure. She has been having episodes of hypoglycemia. She also seems to have obstructive jaundice. She is in the process of being transferred to [place] for possible ERCP. She has a history of atrial fibrillation, AAA repair. She had elevated troponin T during this hospital admission. The troponin T was thought to be related to type II AL. In view of her multiple medical problems, it was decided to hold off on any further investigations for her coronary status. She had an episode of wide-complex tachycardia yesterday with a heart rate in the 200 range. This happened while she was getting physical therapy assisted ambulation. Soon after this episode, the nursing staff made her to sit down and take some deep breath and vagal maneuvers. Her rhythm converted to normal sinus rhythm. She is currently she seems to doing okay. No chest pain or chest tightness. Her liver function and kidney function seems to be getting worse. Has persistent anemia and thrombocytopenia Medications: Medication Review Details: Current Medications Acetaminophen (Acetaminophen 325 Mg Tablet) 650 mg PO Q6H PRN PRN Reason: MILD PAIN Last Admin: 07/28/22 10:08 Dose: 650 mg Albuterol Sulfate (Albuterol 2.5 Mg/3 Ml Neb) 2.5 mg INHALATION Q4H.RESPIRATORY PRN PRN Reason: wheezing Aspirin (Aspirin 81 Mg Ec Tablet) 81 mg PO DAILY [facility] Last Admin: 07/23/22 08:49 Dose: 81 mg Atorvastatin Calcium (Atorvastatin 40 Mg Tablet) 40 mg PO BEDTIME [facility] Last Admin: 07/27/22 20:58 Dose: 40 mg Dextrose (Dextrose 50% Syringe 50 Ml) 50 ml IVP PRN PRN; Protocol PRN Reason: HYPOGLYCEMIA Dextrose (Dextrose 50% Syringe 50 Ml) 25 ml IVP ONCE PRN; Protocol PRN Reason: HYPOGLYCEMIA Diphenoxylate HCl/Atropine (Diphenoxylate/Atropine Tablet) 2 tab PO Q6H PRN PRN Reason: DIARRHEA Last Admin: 07/28/22 00:50 Dose: 2 tab Enoxaparin Sodium (Enoxaparin 40 Mg/0.4 Ml Syringe) 40 mg SUBCUT Q24H [facility] Last Admin: 07/23/22 08:49 Dose: 40 mg Dextrose (D5w) 500 mls @ 500 mls/hr IV ONCE PRN; Protocol PRN Reason: HYPOGLYCEMIA Dextrose 35.5 ml/ Sterile (Water 14.5 ml/ N/A) 50 mls @ 600 mls/hr IVP PRN PRN PRN Reason: HYPOGLYCEMIA Last Infusion: 07/22/22 04:16 Dose: Infused Piperacillin Sod/Tazobactam (Sod 3.375 gm/ Sodium Chloride) 50 mls @ 12.5 mls/hr IV Q12H [facility]; Protocol Last Admin: 07/28/22 11:44 Dose: 12.5 mls/hr Norepinephrine Bitartrate 4 mg (/ Dextrose) 254 mls @ 0 mls/hr IV .Q0M [facility]; Protocol Last Titration: 07/26/22 19:00 Dose: Infused Vancomycin HCl 1,000 mg/ (Sodium Chloride) 250 mls @ 250 mls/hr IV Q48H [facility]; Protocol Last Infusion: 07/26/22 19:00 Dose: Infused Albumin Human (Albumin) 25 g in 100 mls @ 60 mls/hr IV Q8H [facility] Last Infusion: 07/28/22 05:43 Dose: Infused Dextrose (D10w) 1,000 mls @ 30 mls/hr IV .Q24H [facility] Last Infusion: 07/28/22 05:00 Dose: 30 mls/hr Ondansetron HCl (Ondansetron 2 Mg/Ml Sdv 2 Ml) 4 mg IVP Q6H PRN PRN Reason: NAUSEA AND VOMITING Last Admin: 07/28/22 00:19 Dose: 4 mg Ondansetron HCl (Ondansetron 2 Mg/Ml Sdv 2 Ml) 4 mg IVP Q6H PRN PRN Reason: NAUSEA AND VOMITING Pantoprazole Sodium (Pantoprazole Dr 40 Mg Tablet) 40 mg PO DAILY [facility] Last Admin: 07/28/22 08:51 Dose: 40 mg Vitals/I&O/Wt Last Vital Signs Temp 98.1 F 07/28/22 04:24 Pulse 91 07/28/22 08:49 Resp 16 07/28/22 08:49 BP 122/62 07/28/22 06:00 Pulse Ox 97 07/28/22 08:49 O2 Del Method Nasal Cannula 07/28/22 08:49 O2 Flow Rate 2 07/28/22 08:49 07/27/22 07/28/22 07/28/22 22:59 06:59 14:59 Intake Total 1223 / 2286 450 / 2736 Output Total 250 / 600 500 / 1100 Balance 973 / 1686 -50 / 1636 Weight last 48 hrs Weight 210 lb 1.76 oz Weight 210 lb 14.4 oz Physical Exam 2 Narrative: GENERAL: The patient is alert and oriented times three. Not in any acute distress. HEENT: No significant pallor, icterus or lymphadenopathy.Oral cavity: There are no mucous membrane lesions. NECK: Trachea appears to be central. No masses noted. No JVD or thyromegaly appreciated. RESPIRATORY: Chest is symmetrical. No intercostals muscle retraction or any accessory muscle activation. There is no chest wall tenderness. Breath sounds are heard bilaterally. No rales or rhonchi heard. No evidence of any consolidation. BREASTS: Deferred. HEART: The heart sounds are normal. No S3 or S4. Short systolic murmur in the left sternal border. No pericardial rub ABDOMEN: No vessel pulsations or distention. No tenderness. No organomegaly appreciated. Bowel sounds are normally heard. : Deferred. RECTAL: Deferred. LYMPHATIC: No lymphadenopathy noted in the neck. EXTREMITIES: 1-2+ edema both lower extremities MUSCULOSKELETAL: No acute joint deformities or swelling SKIN: Allergic discoloration NEUROPSYCHIATRIC: The patient is alert and oriented x3. Appears to be in a good mood. No tremors or rigidity noted. Urinary Catheter Management: Hernandez: Cath Placed During This Visit: yes Reason for Continuing Indwelling Catheter: Accurate Measurement of Urinary Output in Critically Ill Patients Urinary Catheter Date of Insertion: 07/21/22 Urinary Catheter Time of Insertion: 08:49 Data 07/28/22 03:35 07/28/22 03:35 Other Labs: Laboratory Last Values WBC 8.9 10^3/uL (4.0-10.0) 07/28/22 03:35 RBC 2.49 10^6/uL (4.1-5.3) L 07/28/22 03:35 Hgb 7.8 g/dL (11.5-15.3) L 07/28/22 03:35 Hct 23.4 % (37.0-47.0) L 07/28/22 03:35 MCV 94.0 fl (81-99) D 07/28/22 03:35 MCH 31.3 pg (28.0-34.0) 07/28/22 03:35 MCHC 33.3 g/dL (30.0-36.0) 07/28/22 03:35 RDW 17.1 % (12.1-15.1) H 07/28/22 03:35 Plt Count 57 10^3/cmm (130-400) L 07/28/22 03:35 MPV [employer] 07/28/22 03:35 Neut % (Auto) 87.3 % 07/27/22 02:52 Lymph % (Auto) Not Reportable 07/28/22 03:35 [place] % (Auto) Not Reportable 07/28/22 03:35 Eos % (Auto) 0.0 % 07/27/22 02:52 Baso % (Auto) 0.0 % 07/27/22 02:52 Neut # (Auto) 4.16 10^3/uL (1.8-7.7) 07/27/22 02:52 Lymph # (Auto) Not Reportable 07/28/22 03:35 [place] # (Auto) Not Reportable 07/28/22 03:35 Eos # (Auto) 0.0 10^3/uL (0.0-0.8) 07/27/22 02:52 Baso # (Auto) 0.0 10^3/uL (0.0-0.1) 07/27/22 02:52 Nucleated RBC % (auto) 0 % 07/27/22 02:52 Total Counted 100 (0-100) 07/28/22 03:35 Atypical Lymphs % 0.0 % (0-5) 07/28/22 03:35 Absolute Neutrophils 7.8 10^3/cmm (1.4-6.5) H 07/28/22 03:35 Segmented Neutrophils 87 % 07/28/22 03:35 Abs Segm Neuts (Man) 7.7 10/cmm (1.6-7.1) H 07/28/22 03:35 Band Neutrophils 1.0 % 07/28/22 03:35 Abs Band Neuts (Man) 0.1 10^3/cmm (0.0-1.2) 07/28/22 03:35 Absolute Lymphocytes 0.4 10^3/cmm (1.2-3.4) L 07/28/22 03:35 Lymphocytes (Manual) 5 % 07/28/22 03:35 Monocytes (Manual) 6.0 % 07/28/22 03:35 Absolute Monocytes 0.5 10^3/cmm (0.1-0.6) 07/28/22 03:35 Eosinophils (Manual) 0 % 07/28/22 03:35 Absolute Eosinophils 0.0 10^3/cmm (0.0-0.7) 07/28/22 03:35 Basophils (Manual) 0.0 % 07/28/22 03:35 Absolute Basophils 0.0 10^3/cmm (0.0-0.2) 07/28/22 03:35 Nucleated RBCs 1.0 /100WBC (0-1) 07/28/22 03:35 Nucleated RBCs # 0.0 /100WBC 07/27/22 02:52 Platelet Estimate Decreased (Normal) L 07/28/22 03:35 Hypochromasia 2+ H 07/28/22 03:35 Poikilocytosis 1+ H 07/28/22 03:35 Anisocytosis 2+ H 07/28/22 03:35 Macrocytosis 2+ H 07/28/22 03:35 Target Cells Trace 07/28/22 03:35 [place] Cells 1+ H 07/22/22 02:30 Schistocytes 1+ H 07/28/22 03:35 Haptoglobin 10.0 mg/L (30-200) L 07/25/22 02:45 PT 25.10 SECONDS (12.1-14.9) H 07/28/22 03:35 INR 2.18 (0.8-1.2) H 07/28/22 03:35 APTT 59.4 SECONDS (23.9-36.7) H 07/28/22 03:35 Fibrinogen 67 mg/dL (174-498) L 07/28/22 03:35 D-Dimer 5.49 ug/mIFEU (0-0.59) H 07/25/22 02:45 Sodium 133 mmol/L (136-145) L 07/28/22 03:35 Potassium 4.0 mmol/L (3.5-5.1) 07/28/22 03:35 Chloride 94 mmol/L (98-107) L 07/28/22 03:35 Carbon Dioxide 21 mmol/L (22-29) L 07/28/22 03:35 Anion Gap 22.0 (5-19) H 07/28/22 03:35 BUN 79 mg/dL (8-23) H 07/28/22 03:35 Creatinine 3.2 mg/dL (0.5-0.9) H 07/28/22 03:35 GFR Calculation Not Reportable 07/28/22 03:35 Glucose 88 mg/dL (65-115) 07/28/22 03:35 POC Glucose 54 mg/dL (70-110) L 07/28/22 12:57 Estimat Average Glucose Cancelled 07/22/22 02:30 Hemoglobin A1c Cancelled 07/22/22 02:30 Insulin Ref Range uIU/mL 14.1 uIU/mL 07/22/22 14:47 C-Peptide 4.64 ng/mL (0.80-3.85) H 07/22/22 14:47 Calculated Osmolality 299 mOsm/kg (285-295) H 07/28/22 03:35 Lactate 1.7 mmol/L (0.5-2.2) 07/25/22 02:45 Calcium 7.7 mg/dL (8.5-10.5) L 07/28/22 03:35 Magnesium 1.4 mg/dL (1.7-2.3) L 07/28/22 12:15 Total Bilirubin 6.8 mg/dL (0.15-1.2) H 07/28/22 03:35 Direct Bilirubin 3.70 mg/dL (0.00-0.30) H 07/26/22 03:13 Indirect Bilirubin 0.80 07/26/22 03:13 AST 318 U/L (0-32) H 07/28/22 03:35 ALT 41 U/L (0-33) H 07/28/22 03:35 Alkaline Phosphatase 156 U/L (35-105) H 07/28/22 03:35 Lactate Dehydrogenase 282 U/L (135-214) H 07/27/22 02:52 Troponin T Baseline 178 ng/L (0-10) H* 07/21/22 06:30 Troponin T 120 Minute 162.3 ng/L (0-10) H 07/21/22 08:46 Delta Troponin T -15.7 ABS# (0-10) L 07/21/22 08:46 Troponin T Hi Sens 6Hr 167.1 ng/L (0-10) H 07/21/22 15:05 Troponin T Hi Sens 6Hr Delta -10.9 ng/L (0-12) L 07/21/22 15:05 NT-Pro-B Natriuret Pep 4793 pg/mL (0-450) H 07/21/22 06:30 Total Protein 4.9 g/dL (6.6-8.7) L 07/28/22 03:35 Albumin 3.8 g/dL (3.5-5.2) 07/28/22 03:35 Globulin 1.1 g/dL (1.3-4.6) L 07/28/22 03:35 Lipase Cancelled 07/22/22 09:39 Beta-Hydroxybutyrate 0.07 mmol/L 07/22/22 14:47 Procalcitonin 0.70 ng/mL (0-0.5) H 07/25/22 02:45 TSH 1.85 uIU/mL (0.27-4.20) 07/21/22 06:30 Random Cortisol 22.18 ug/dL (2.47-19.5) H 07/22/22 02:30 Urine Color Yellow (Yellow) 07/21/22 08:47 Urine Appearance Clear (CLEAR) 07/21/22 08:47 Urine pH 5 (5-7) 07/21/22 08:47 Ur Specific [place] 1.015 (1.005-1.030) 07/21/22 08:47 Urine Protein Neg (Negative) 07/21/22 08:47 Urine Glucose (UA) Norm (Normal) 07/21/22 08:47 Urine Ketones Negative (Negative) 07/21/22 08:47 Urine Blood 3+ (Negative) H 07/21/22 08:47 Urine Nitrate Negative (Negative) 07/21/22 08:47 Urine Bilirubin Neg (Negative) 07/21/22 08:47 Urine Urobilinogen Norm mg/dL (Negative) 07/21/22 08:47 Ur Leukocyte Esterase Negative (Negative) 07/21/22 08:47 Urine RBC 0-4 /hpf (0-2) H 07/21/22 08:47 Urine WBC Rare /hpf (0-5) 07/21/22 08:47 Ur Squamous Epith Cells 5-10 /hpf (0-5) H 07/21/22 08:47 Amorphous Sediment Not Reportable 07/21/22 08:47 Urine Bacteria Trace /hpf (NONE) 07/21/22 08:47 Ur Random Sodium 50 mmol/L 07/22/22 10:59 Ur Random Potassium 30 mmol/L 07/22/22 10:59 Ur Random Chloride 47 mmol/L 07/22/22 10:59 Urine Creatinine 56 mg/dL (28-217) 07/22/22 10:59 Nasal Influ A H1 2009 PCR Not detected (NOT DETECT) 07/22/22 11:00 Vancomycin Trough 11.9 ug/mL (10-15) 07/26/22 12:07 Adenovirus (PCR) Not detected (NOT DETECT) 07/22/22 11:00 C. pneumoniae DNA (PCR) Not detected (NOT DETECT) 07/22/22 11:00 Coronavirus 229E (PCR) Not detected (NOT DETECT) 07/22/22 11:00 Human Metapneumovir PCR Not detected (NOT DETECT) 07/22/22 11:00 Influenza A (H1) PCR Not detected (NOT DETECT) 07/22/22 11:00 Influenza A (H3) PCR Not detected (NOT DETECT) 07/22/22 11:00 Influenza Type A (PCR) Not detected (NOT DETECT) 07/22/22 11:00 Influenza Type B (PCR) Not detected (NOT DETECT) 07/22/22 11:00 M. pneumoniae (PCR) Not detected (NOT DETECT) 07/22/22 11:00 Parainfluenza 1 (PCR) Not detected (NOT DETECT) 07/22/22 11:00 Parainfluenza 2 (PCR) Not detected (NOT DETECT) 07/22/22 11:00 Parainfluenza 3 (PCR) Not detected (NOT DETECT) 07/22/22 11:00 Parainfluenza 4 (PCR) Not detected (NOT DETECT) 07/22/22 11:00 RSV Type A (PCR) Not detected (NOT DETECT) 07/22/22 11:00 RSV Type B (PCR) Not detected (NOT DETECT) 07/22/22 11:00 Entero/Rhino (PCR) Not detected (NOT DETECT) 07/22/22 11:00 SARS-CoV-2 (PCR) Not detected (NOT DETECT) 07/22/22 11:00 Blood Type A Positive 07/27/22 04:06 Rho(D) Type Positive 07/27/22 04:06 Antibody Screen Negative 07/27/22 04:06 Crossmatch See Detail 07/27/22 04:06 Micro: Microbiology 07/22/22 14:15 Blood Culture - Final Blood NO GROWTH AFTER 5 DAYS 07/22/22 14:00 Blood Culture - Final Blood NO GROWTH AFTER 5 DAYS 07/27/22 08:25 Enteric Pathogens (PCR) - Final Stool - Stool Aspirate 07/27/22 08:25 C.difficile Toxin B Gene (PCR) - Final Stool - Stool Aspirate A&P Assessment and plan (1) Elevated troponin: Possibly type II AL. LV ejection fraction was normal by echocardiogram. Cardiac status seems to be fairly stable. She may require some cardiac work-up once her clinical status improves. In view of the multiple other acute medical problems, it would be appropriate to hold off on this for the time being (2) Atrial fibrillation: Currently the patient seems to be in sinus rhythm. Patient may have intermittent atrial fibrillation. The wide-complex tachycardia yesterday could be supraventricular, since it responded to vagal maneuver (3) AAA (abdominal aortic aneurysm): Status post aneurysm repair. Currently seems to be stable (4) PVD (peripheral vascular disease): Currently has no specific symptoms of heart insufficiency. May continue on the current measures. (5) Hyperbilirubinemia: Possibly from biliary obstruction (6) Hyperlipidemia, mixed: In view of the worsening liver enzymes, it may be appropriate to hold off on the statin drug at this point (7) Sepsis: On IV antibiotics (8) DIC (disseminated intravascular coagulation): (9) Thrombocytopenia: (10) History of bariatric surgery: (11) Macrocytic anemia: The hemoglobin is 7.8 today. She may require more more blood transfusion. (12) Left bundle branch block: (13) Acute on chronic kidney failure: Possibly multifactorial (14) COPD (chronic obstructive pulmonary disease): Plan Patient remains critically ill. Prognosis guarded Attestations Medical Necessity Statement*: Patient requires continued hospital stay for close monitoring and further man agement Coding Level of Care Code 46363 Diagnoses Elevated troponin R77.8 Atrial fibrillation I48.91 AAA (abdominal aortic aneurysm) I71.40 PVD (peripheral vascular disease) I73.9 Hyperbilirubinemia E80.6 Hyperlipidemia, mixed E78.2 Sepsis A41.9 DIC (disseminated intravascular coagulation) D65 Thrombocytopenia D69.6 History of bariatric surgery Z98.84 Macrocytic anemia D53.9 Left bundle branch block I44.7 Acute on chronic kidney failure N17.9; N18.9 COPD (chronic obstructive pulmonary disease) J44.9
[2022-07-28] MEDS: acetaminophen 325 mg Tablet 650 MG PO (10:08)
--- NOTE | 2022-07-28 11:01 | PC.SOCIAL ---
IMM Updated Updated pt & family on IMM. No questions voiced. Provided pt a copy. Initialed, dated, & timed copy in chart.
[2022-07-28] MEDS: piperacillin-tazobactam 3.375 GM in sodium chloride 0.9% (plus) 50 ML IV (11:44)
[2022-07-28 12:17] LABS: Glucose Point of Care 45 mg/dL (70-110)
[2022-07-28 12:17] LABS: Glucose Point of Care 65 mg/dL (70-110)
[2022-07-28 12:59] LABS: Magnesium 1.4 mg/dL (1.7-2.3)
[2022-07-28 13:00] LABS: Glucose Point of Care 54 mg/dL (70-110)
[2022-07-28] MEDS: vancomycin 1,000 MG in sodium chloride 0.9% 250 ML 250 MG IV (14:12)
--- NOTE | 2022-07-28 14:18 | PC.NURSE ---
Blood sugar before lunch was 45. Nurse gave D50 per protocol and alerted physician. recieved orders to increase D10 manintenance fluids form 30ml/hr to 75mL/hr. Sugar was checked again and it was 54, nurse gave more D50 per protocol.
[2022-07-28] MEDS: magnesium sulfate premix 4 GM/100 ML PREMIX IV (14:44)
[2022-07-28 15:11] LABS: Glucose Point of Care 161 mg/dL (70-110)
[2022-07-28] MEDS: dextrose 10% 1,000 ML 75 ML IV (16:01)
[2022-07-28 16:17] LABS: Ammonia 32 umol/L (11-51)
--- NOTE | 2022-07-28 16:33 | PC.NURSE ---
Addendum entered by Joseph Almeida RN 07/28/22 17:02: Patient's mental status has declined She can answer all orientation questions correctly, however her speech has become increasingly delayed and she is experiencing some hallucinations, such as asking me for purple earrings to put on a status she thought she was creating. Patient is easily reoriented. NUrse alerted Dr shirley and received orders for ammonia level. Ammoina levels cme back wihtin normal limits. no further orders at this time. Original Note: Patient's mental status has declined She can answer all orientation questions correctly, however her speech has become increasingly delayed and she is experiencing some hallucinations, such as asking me for purple earrings to put on a status she thought she was creating. Patient is easily reoriented.
--- NOTE | 2022-07-28 16:37 | P.PN_ITS ---
Subjective Subjective: Patient was seen and examined this morning, posttransfusion's hemoglobin: Is 7.8, platelet count is around 57,000, BUN and serum creatinine is improved, AST ALT ALP total bilirubin is going up. Patient also went into wide-complex tachycardia yesterday with heart rate in 200s, when she was working with physical, she responded favorably to vagal maneuver, and rest, spontaneously converted to normal sinus, serum magnesium is 1.4 it has been corrected. Medications: Reviewed: Yes Medication Review Details: Generic Name Dose Route Start Last Admin Trade Name Freq PRN Reason Stop Dose Admin Acetaminophen 650 mg 07/21/22 13:02 07/28/22 10:08 Acetaminophen 32 5 Mg Tablet PO 650 mg Q6H PRN Administration MILD PAIN Aspirin 81 mg 07/21/22 13:10 07/23/22 08:49 Aspirin 81 Mg Ec Tablet PO 81 mg DAILY JOSE Administration Atorvastatin Calci um 40 mg 07/21/22 21:00 07/27/22 20:58 Atorvastatin 40 Mg Tablet PO 40 mg BEDTIME JOSE Administration Diphenoxylate HCl/ Atropine 2 tab 07/28/22 00:32 07/28/22 00:50 Diphenoxylate/At ropine Tablet PO 2 tab Q6H PRN Administration DIARRHEA Dextrose 35.5 ml/ Sterile 50 mls @ 600 mls/ hr 07/22/22 01:25 07/28/22 14:59 Water 14.5 ml/ N /A IVP Infused PRN PRN Infusion HYPOGLYCEMIA Piperacillin Sod/T azobactam 50 mls @ 12.5 mls /hr 07/22/22 11:00 07/28/22 16:03 Sod 3.375 gm/ So dium Chloride IV Infused Q12H JOSE Infusion Protocol Norepinephrine Bit artrate 4 mg 254 mls @ 0 mls/h r 07/22/22 11:45 07/26/22 19:00 / Dextrose IV Infused .Q0M JOSE Titration Protocol Per Protocol Vancomycin HCl 1,0 00 mg/ 250 mls @ 250 mls /hr 07/24/22 13:00 07/28/22 16:04 Sodium Chloride IV Infused Q48H JOSE Infusion Protocol Albumin Human 25 g in 100 mls @ 60 mls/hr 07/25/22 11:45 07/28/22 15:03 Albumin IV Infused Q8H JOSE Infusion Dextrose 1,000 mls @ 75 ml s/hr 07/27/22 08:45 07/28/22 16:01 D10w IV 75 mls/hr .[id number] JOSE Administration Magnesium Sulfate 4 gm in 100 mls @ 50 mls/hr 07/28/22 15:00 07/28/22 14:44 Magnesium Sulfat e Premix IV 07/28/22 16:59 50 mls/hr ONCE ONE Administration Pantoprazole Sodiu m 40 mg 07/22/22 09:00 07/28/22 08:[address] 40 Mg Tablet PO 40 mg DAILY JOSE Administration Vitals/I&O/Wt Last Vital Signs Temp 98.9 F 07/28/22 13:00 Pulse 72 07/28/22 16:00 Resp 15 07/28/22 16:00 BP 105/49 07/28/22 16:00 Pulse Ox 95 07/28/22 16:00 O2 Del Method Nasal Cannula 07/28/22 16:00 O2 Flow Rate 2.5 07/28/22 16:00 07/28/22 07/28/22 07/28/22 06:59 14:59 22:59 Intake Total 450 / 2736 756.5 / 756.5 465.5 / 1222.0 Output Total 500 / 1100 325 / 325 Balance -50 / 1636 431.5 / 431.5 465.5 / 897.0 Weight last 48 hrs Weight 95.304 kg Weight 95.663 kg Physical Exam Const: COMMON NORMALS: patient oriented x3 HENMT: COMMON NORMALS: normocephalic and atraumatic HEAD & SCALP: normocephalic and atraumatic Resp: COMMON NORMALS: clear to auscultation bilaterally AUSCULTATION: clear to auscultation bilaterally Cardio: COMMON NORMALS: regular rate, regular rhythm, S1 normal heart sound present, S2 normal heart sound present, No gallops present (Cardio), No murmurs present (Cardio), No rub (Cardio) and Peripheral pulses 2+ throughout RATE: regular rate RHYTHM: regular rhythm HEART SOUNDS: S1 normal heart sound present and S2 normal heart sound present PERIPHERAL PULSES: Peripheral pulses 2+ throughout GI: COMMON NORMALS: Normal to inspection, nondistended, normoactive bowel sounds present, Soft to palpation, non-tender, No hepatosplenomegaly present and no masses AUSCULTATION: Yes normoactive bowel sounds PALPATION: Yes Soft to palpation and Yes No hepatosplenomegaly present RECTAL EXAM: deferred Extremity: NARRATIVE EXTREMITY EXAM: Bilateral lower extremity redness and tenderness present Neuro: COMMON NORMALS: patient oriented x3 Urinary Catheter Management: Hernandez: Cath Placed During This Visit: yes Reason for Continuing Indwelling Catheter: Accurate Measurement of Urinary Output in Critically Ill Patients Urinary Catheter Date of Insertion: 07/21/22 Urinary Catheter Time of Insertion: 08:49 Data 07/28/22 03:35 07/28/22 03:35 Micro: Microbiology 07/22/22 14:15 Blood Culture - Final Blood NO GROWTH AFTER 5 DAYS 07/22/22 14:00 Blood Culture - Final Blood NO GROWTH AFTER 5 DAYS 07/27/22 08:25 Enteric Pathogens (PCR) - Final Stool - Stool Aspirate 07/27/22 08:25 C.difficile Toxin B Gene (PCR) - Final Stool - Stool Aspirate A&P Assessment and plan (1) Bradycardia: Patient noted to have bradycardia, baseline rhythm appears to be slow A-fib, heart rate ranging between 30 to 40 bpm. Blood pressure is currently maintained between 1 30-1 40 systolic. Holding metoprolol, patient takes 125 mics as outpatient. Continue telemetry monitoring (2) NSTEMI (non-ST elevated myocardial infarction): Baseline troponin elevated at 172, trending down at 2 hours to 168, trended won at 6 hrs Denies any current chest pain echo without RWMA, EF 60%., gr 1 diastolic dysfunction Troponin elevation maybe related to CKD Cardiology consult appreciated Was on heparin drip has been discontinued. (3) Hypotension: CT chest without contrast no consolidation seen. CT abdomen and pelvis: No acute abdominal or pelvic pathology seen. Abdominal ultrasound: Blood culture:NTD UA: Negative Lactic acid: Normal Procalcitonin:Nomal. Currently on Levophed Random cortisol:22 May be related to bradycardia when BP dropped to 76 systolic. Currently on Levophed (3) Hypotension: CT chest without contrast no consolidation seen. CT abdomen and pelvis: No acute abdominal or pelvic pathology seen. Abdominal ultrasound: Blood culture:NTD UA: Negative Lactic acid: Normal Procalcitonin:Nomal. Was on Levophed Random cortisol:22 May be related to bradycardia when BP dropped to 76 systolic. Or possible sepsis. Was on Levophed. (4) Hypoglycemia: unclear etiology patient is not diabetic Not on any inuslin or other OHas has remote h/o bariatric surgery Cortisol random, TSH normal (5) Acute on chronic kidney failure: Per family baseline creatinine appears to be about 3.5.? Last creatinine in our system from July 05, 2022 at 3.3 Creatinine today at 4.2, down from 4.7. Urine output 900 cc? May be related to hypotension Currently on d20 @ 25 cc/hr Renal artery Doppler to assess patency of stent Discussed with family that ideally would prefer to do a CTA, however due to concern for potential RUSSELL and need to be started on hemodialysis holding off for now while pending serial creatinine checks. CT abdomen/pelvis has not shown any obstrcutive process (6) History of abdominal aortic aneurysm (AAA) repair: Requested records from [place] (7) Atrial fibrillation: Not on anticoagulation as outpatient (8) History of renal stent: (9) Thrombocytopenia: Thrombocytopenia: Likely secondary to DIC Admission platelet count:102 Current platelet count is 75,000 Peripheral blood smear reviewed: DIC panel: Results appreciated 4T Score : HIT : Plasmic score for TTP Currently patient has no significant bleeding. Monitor platelet count for now (10) DIC (disseminated intravascular coagulation): Elevated PT,aPTT, elevated INR, low serum fibrinogen, high D-dimer. Low fibrinogen level is unlikely related to hypofibrinogenemia. Conservative management,with treatment of underlying cause. Patient has received 2 units of cryoprecipitate for low fibrinogen level, (11) Total bilirubin, elevated: Follow limited ultrasound abdomen.Cholecystectomy.Common bile duct dilatation measuring 14 mm. MRCP: Common bile duct measures 11 mm but no filling defects are identified.Normal tapering to the ampulla of Vater. May be normal physiologic dilatation related to aging and post cholecystectomy. Monitor CMP for now. Follow a.m. total bilirubin as well as direct bilirubin. (12) Cellulitis: Bilateral lower extremity cellulitis: Currently appropriately covered with broad-spectrum antibiotic (13) Sepsis: Patient likely has sepsis secondary to cellulitis: And possibly sepsis is giving rise to DIC: Patient currently meets sepsis criteria as she was hypotensive, also had hypothermia, initially hypotension was attributed to bradycardia, but patient continued to required Levophed even after, improvement in her heart rate, at one-point even with her improving heart rate Levophed requirement went up, requiring the need for bolus IV fluid, albumin to help with blood pressure, and continued IV antibiotic.Though her cultures have remained negative, imaging studies for most part has been unremarkable.Lactic acid:1.7, procalcitonin:0.70. Hypoglycemia could be explained be explained with sepsis. Current plan is to continue with IV antibiotics and de-escalate accordingly with clinical improvement.Patient likely developed sepsis during hospital stay. (14) Anemia: S/p 2 units PRBC transfusion Monitor H&H for now. Plan Disposition: Multiple attempts have been made to transfer the patient to a nearby tertiary care center with GI facility possible ERCP.currently patient has not been accepted. Attestations Medical Necessity Statement*: Needs to be in hospital for management of DIC. Coding Level of Care Code Acute Code for [facility] Fwd Diagnoses Bradycardia R00.1 NSTEMI (non-ST elevated myocardial infarction) I21.4 Hypotension I95.9 Hypoglycemia E16.2 Acute on chronic kidney failure N17.9; N18.9 History of abdominal aortic aneurysm (AAA) repair Z98.890 Atrial fibrillation I48.91 History of renal stent Thrombocytopenia D69.6 DIC (disseminated intravascular coagulation) D65 Total bilirubin, elevated R17 Cellulitis L03.90 Sepsis A41.9 Anemia D64.9
[2022-07-28 17:00] LABS: Glucose Point of Care 125 mg/dL (70-110)
--- NOTE | 2022-07-28 18:13 | PC.NURSE ---
received acceptance at [facility]. COnfirmed acceptance with SALBADOR Nieves, in the medical ICU. Accepted to room 3. Report given to [employer] [facility] called for transfer and they will be inbound shortly. Hospital security aware of inbound aircraft. COnsent to transfer form completed and verified by lighthouse keeper. [facility] medical ICU: [phone]
--- NOTE | 2022-07-28 19:20 | PC.NURSE ---
Due to maintenance issue, [facility] was not able to lift with the patient. THeir dispatch is currently trying to find an alternative aircraft while [facility] evac 1's airplane pilot photogrammetry is speaking to their maintenance. THe air evac med crew notified the family of the delay. I have notified [facility] of delay.
[2022-07-28 20:12] LABS: Glucose Point of Care 112 mg/dL (70-110)
--- NOTE | 2022-07-29 04:24 | PC.NURSE ---
Alternate transport to [facility] arranged through [facility]. Transportation via ground approved by Dr. Ilana Simon. Patient and family updated on new travel arrangements. [facility] ambulance personnel collected patient and left hospital 07/28/22 at approximately 2015.
== END 2022-07-28 20:15 | disposition skilled nursing facility (03) | DRG 280 ==
LOC: ER 07:54 → ICU 08:18
PROVIDERS: Family Medicine; Internal Medicine Cardiovascular Disease; Admitting Provider Student in an Organized Health Care Education/Training Program; Emergency Provider Family Medicine; PCP Nurse Practitioner; Visit Provider Internal Medicine
DX: I48.91 Unspecified atrial fibrillation (principal); A41.9 Sepsis, unspecified organism; I21.A1 Myocardial infarction type 2; D65 Disseminated intravascular coagulation [defibrination syndrome]; N17.9 Acute kidney failure, unspecified; I13.0 Hypertensive heart and chronic kidney disease with heart failure and stage 1 through stage 4 chronic kidney disease, or unspecified chronic kidney disease; I50.32 Chronic diastolic (congestive) heart failure; L03.116 Cellulitis of left lower limb; L03.115 Cellulitis of right lower limb; I95.9 Hypotension, unspecified; E16.2 Hypoglycemia, unspecified; N18.30 Chronic kidney disease, stage 3 unspecified; J44.9 Chronic obstructive pulmonary disease, unspecified; E78.2 Mixed hyperlipidemia; K58.0 Irritable bowel syndrome with diarrhea; R29.6 Repeated falls; D63.1 Anemia in chronic kidney disease; E80.6 Other disorders of bilirubin metabolism; Z90.49 Acquired absence of other specified parts of digestive tract; R68.0 Hypothermia, not associated with low environmental temperature; E86.0 Dehydration; Z98.84 Bariatric surgery status; Z96.0 Presence of urogenital implants; E04.9 Nontoxic goiter, unspecified; E66.9 Obesity, unspecified; Z68.31 Body mass index [BMI] 31.0-31.9, adult; F17.200 Nicotine dependence, unspecified, uncomplicated; I73.9 Peripheral vascular disease, unspecified; G47.33 Obstructive sleep apnea (adult) (pediatric); F32.A Depression, unspecified; F41.9 Anxiety disorder, unspecified; G20 Parkinson's disease; Z79.891 Long term (current) use of opiate analgesic; Z79.51 Long term (current) use of inhaled steroids
CPT/HCPCS: 36415; 36416; 36430; 36569; 36592; 51702; 71045; 71250; 74176; 74181; 76705; 80053; 80202; 81001; 82010; 82140; 82247; 82248; 82436; 82533; 82570; 82962; 83010; 83036; 83525; 83605; 83615; 83690; 83735; 83880; 84133; 84145; 84300; 84443; 84484; 84681; 85007; 85025; 85378; 85384; 85610; 85730; 86850; 86900; 86920; 86927; 87040; 87486; 87493; 87506; 87581; 87633; 93005; 93306; 93931; 93975; 96365; 96372; 96376; 97110; 97161; 97167; 97530; 97535; 99285; C1751; J1100; J1610; J1644; J1650; J2354; J2405; J2543; J3370; J3475; J7030; J7040; J7050; J7060; J7070; J7799; P9012; P9016; P9046; P9047